=== PATIENT | male | born 1945 | race Caucasian/White ===

== ENCOUNTER → 2018-04-13 | Outpatient (CLI) | payer MEDICARE ==
[2018-04-13 10:49] LABS: HGB 14.1 gm/dL (13.0-17.5); MCH 30.9 pg (25.0-35.0); MCHC 32.8 g/dL (31.0-37.0); MCV 94.2 fL (80.0-100.0); Mean Platelet Volume 6.8; Platelet Count 278 k/uL (150-450); RBC 4.57 m/uL (4.30-5.90); RDW 13.7 % (11.5-15.5); WBC 7.1 k/uL (3.8-10.6)
[2018-04-13 11:08] LABS: Anion Gap 6 mmol/L; Blood Urea Nitrogen 14 mg/dL (9-20); Carbon Dioxide 30 mmol/L (22-30); Chloride 105 mmol/L (98-107); Glucose 127 mg/dL (74-99); Potassium 4.6 mmol/L (3.5-5.1); Sodium 141 mmol/L (137-145)
== END | disposition home or self-care (01) ==
LOC: LABPAT 09:48
PROVIDERS: ATTEND Internal Medicine Clinical Cardiac Electrophysiology
DX: Z01.812 Encounter for preprocedural laboratory examination (principal); I48.1 Persistent atrial fibrillation
CPT/HCPCS: 36415; 80051; 82565; 82947; 84520; 85027

== ENCOUNTER 2018-04-18 11:38 | Day surgery (SDC) | payer MEDICARE ==
[2018-04-14 08:59] VITALS: BMI 25.8
[~2018-04-18 11:38] MED LIST: DEXAMETHASONE SOD PHOSPHATE 10 MG/ML 1 ML VIAL IV ONE; LACTATED RINGERS 1,000 ML IV SCH; LIDOCAINE 1% 20 ML VIAL (10MG/ML) FOR IV START INTRADERMA PRN; MIDAZOLAM 2 MG/2 ML VIAL IV PRN; ONDANSETRON 4 MG/2 ML VIAL IVP ONE; SODIUM CHLORIDE 0.9% 1,000 ML IV SCH; ceFAZolin 1,000 MG in SODIUM CHLORIDE 0.9% IRRIGATIO 250 ML IRRIGATION ONE; ceFAZolin IN SWFI 2 GM/20 ML SYRINGE IVP ONE; fentaNYL (PF) 50 MCG/ML 2 ML AMP IV PRN
[2018-04-18] MEDS ORDERED: SODIUM CHLORIDE 0.9% 500 ML 500 ML IV ONE (13:00)
[2018-04-18] MEDS ORDERED: PROPOFOL 10 MG/ML 20 ML VIAL IV ONE (13:13)
[2018-04-18] MEDS ORDERED: fentaNYL (PF) 50 MCG/ML 2 ML AMP ONE (13:13)
[2018-04-18] MEDS ORDERED: MIDAZOLAM 2 MG/2 ML VIAL ONE (13:13)
[2018-04-18] MEDS ORDERED: HYDROcodone/APAP 5-325MG 1 EACH TAB PO PRN (13:25)
[2018-04-18] MEDS ORDERED: ACETAMINOPHEN TAB 325 MG TAB PO PRN (13:25)
[2018-04-18] MEDS ORDERED: ACETAMINOPHEN IV (For NPO) 1,000 MG in EMPTY BAG 1 BAG IVPB ONE (13:25)
[2018-04-18] MEDS ORDERED: IOPAMIDOL-370 50ML BTL INJ ONE (13:33)
[2018-04-18] MEDS ORDERED: LIDOCAINE 1% INJ 10MG/ML (20 ML MDV) SQ ONE (13:52)
[2018-04-18] MEDS: amLODIPine 5 MG TAB PO SCH (15:50)
[2018-04-18] MEDS: ceFAZolin IN SWFI 2 GM/20 ML SYRINGE IVP SCH (20:49)
[2018-04-18] MEDS: APIXABAN 5 MG TAB PO SCH (20:49)
--- NOTE | 2018-04-18 21:15 | PCN ---
PROCEDURE NOTE Mr. Greco is a 73-year-old male patient with longstanding atrial fibrillation, persistent with severe bradycardia, symptomatic. He was brought in for permanent pacemaker implantation with physiologic septal pacing. DESCRIPTION OF PROCEDURE: Patient is brought to the EP lab in a fasting state. Written informed consent was obtained prior to the procedure. The left shoulder area was prepped and draped as per protocol. 1% lidocaine was used for local anesthesia. A 4 cm incision made parallel to the deltopectoral groove, about 1.5 cm medial to it. The incision was carried down to the level of the pectoralis muscle. A subfascial pocket was made. Hemostasis was assured. The left axillary vein was accessed at 2 separate points under fluoroscopy and via appropriately-sized introducer sheaths, 2 leads were positioned the right heart. The RV lead was 58 cm, model a Medtronic model #4074 serial #[id number]. This was positioned in the RV apex. This was a passive lead. R-waves 10.3 mV. Pacing threshold 0.3 V at 0.5 milliseconds, pacing impedance of 961 ohms. 10 V test negative. His bundle lead was screwed in the His bundle area and nonselective pacing was noted from the highest output down to 1.4 V at 1 millisecond, where there was non capture. Pacing impedance of 608 ohms, R-waves were 0.8 mV. The HIS to QRS at that site was about 58 milliseconds and the stim QRS at that site was about 55 milliseconds. Nonselective pacing was noted. The leads were secured to the underlying pectoralis fascia after the sheaths were removed. The leads were connected to the generator. The atrial port was capped. The generator was a Medtronic Johnna CRTP model number W1DR02 serial number [id number]. The leads and generator were then placed in subfascial pocket. The wound was closed in 3 layers and dressed per protocol. RESULT: Successful pacemaker implantation with the His bundle lead/physiologic septal pacing performed. Device was programmed to VVIR mode at 50-130 ppm with backup RV pacing. Successful pacemaker implantation for management of long-standing atrial fibrillation with severe bradycardia. PLAN: antihypertensive therapy and antibiotics. MMODL / IJN: [id number] /
[2018-04-19] MEDS: ceFAZolin IN SWFI 2 GM/20 ML SYRINGE IVP SCH ×4 (03:00→13:17)
[2018-04-19 07:40] VITALS: RESP 18
[2018-04-19] MEDS: amLODIPine 5 MG TAB PO SCH (07:43)
[2018-04-19] MEDS: APIXABAN 5 MG TAB PO SCH (07:43)
[2018-04-19] MEDS ORDERED: ASPIRIN 81 MG PO SCH (08:00)
--- NOTE | 2018-04-19 09:14 | XR ---
EXAMINATION TYPE: XR chest 2V DATE OF EXAM: 04/19/2018 COMPARISON: Prior chest x-ray 05/11/2016 HISTORY: Lead placement check TECHNIQUE: Frontal and lateral views of the chest are obtained. FINDINGS: Interval placement of a generator in the left pectoral region, there are is a lead in the right ventricle and region of right atrium. No evident pneumothorax or pleural effusion. Prominent yesy ng volumes are again noted. Cardiac mediastinal silhouette, pulmonary vascularity and dennis are stable . IMPRESSION: No evident complication status post pacemaker placement.
[2018-04-19 11:28] VITALS: BP 156/79; PULSE 52; TEMP 98.4
--- NOTE | 2018-04-19 13:52 | P.DS ---
Providers Attending physician: Cole Kelley Consults: 04/18/18 15:27 Consult Physician Routine Consulting Provider: Jose Carcamo Consult Reason/Comments: h/o tia, htn Do you want consulting provider notified?: Already Contacted Primary care physician: [facility] Course: This is a pleasant 73-year-old male who came in electively for permanent pacemaker implantation secondary to longstanding atrial fibrillation with severe symptomatic bradycardia. Medtronic device was placed to the left anterior chest without incident. Device was programmed to VVIR mode at 50-130 ppm with backup RV pacing. Medtronic rep was in this morning and his device was interrogated and is functioning normally. Chest xray obtained post procedure indicates no evident complication s/p pacemaker placement. Blood pressure 156/ 79 heart rate 52 afebrile maintaining oxygen saturation on room air. Amlodipine 5 mg daily was added to his daily regimen. Discharge medications include Eliquis 5 mg twice a day, aspirin 81 mg every other day and amlodipine 5 mg daily. He denies chest pain, shortness of breath, dizziness or palpitations. He also denies pain to the site of his pacemaker, left shoulder, left arm or neck. GENERAL: Well-appearing, well-nourished and in no acute distress. Hemodynamically stable. NECK: Supple without JVD or thyromegaly. LUNGS: Breath sounds clear to auscultation bilaterally. Respiration equal and unlabored. No wheezes, rales or rhonchi. HEART: Irregular rate and rhythm without murmurs, rubs or gallops. S1 and S2 heard. EXTREMITIES: Normal range of motion, no edema. No clubbing or cyanosis. Peripheral pulses intact. Dressing to the left anterior chest wall clean dry and intact with no evidence of bleeding, swelling or redness. Sling is in place. ASSESSMENT Status post permanent pacemaker implantation Persistent atrial fibrillation on technician terminal and repeater anticoagulation Symptomatic bradycardia Hypertension PLAN Stable for discharge home. Instructions provided for post-pacemaker care. Advised him to use his sling when sleeping and avoid lifting his left arm above the level of his shoulder. Follow up in the device clinic 04/25/[address] Kelley thereafter 07/20. Nurse Practitioner note has been reviewed, I agree with a documented findings and plan of care. Patient was seen and examined. Patient Condition at Discharge: Stable Plan - Discharge Summary Discharge Rx Participant: No New Discharge Prescriptions: New amLODIPine [Norvasc] 5 mg PO DAILY #90 tab Continue Aspirin 81 mg PO Q2D Apixaban [Eliquis] 5 mg PO BID Discharge Medication List Aspirin 81 mg PO Q2D 12/04/14 [History] Apixaban [Eliquis] 5 mg PO BID 04/14/18 [History] amLODIPine [Norvasc] 5 mg PO DAILY #90 tab 04/18/18 [Rx] Follow up Appointment(s)/Referral(s): Cole Kelley MD [STAFF PHYSICIAN] - 1 Week (Device clinic 04/25/2018 8:30am Dr. Saleem 07/20/2018 3:30pm) Robert Wheat MD [Primary Care Provider] - 04/26/18 8:30 am Patient Instructions/Handouts: Pacemaker (DC) Activity/Diet/Wound Care/Special Instructions: PATIENT EDUCATION MATERIAL Instructions following a heart rhythm device implant. 1. Keep dressing DRY for 5 DAYS. You may cover the area with Saran or Cling Wrap, prior to a shower. 2. The dressing will be removed in the Device Clinic at [facility]. Absorbable sutures were used to close the wound. 3. Avoid raising the left arm above the shoulder level. 4 week restriction 4. Avoid arm movements, like backscratching, rubbing the head, or pulling on a cord. 4 weeks restriction 5. Gentle range of motion movements of the shoulder, closest to the incision should be performed to avoid a frozen shoulder. (Pendulum exercises of the shoulder) 6. The opposite arm may be used freely. 7. Avoid driving for 7 days. 8. Avoid activities such as golfing, swimming, weed whacking, lifting more than 10 pounds weight, bowling, gymnastics and weight training/lifting. (6 weeks restriction) 9. Activities such as wood chopping with an axe, pull-ups in the gymnasium, power lifting, arc-welding, being close to home induction cooktops will always be a problem. 10. Arm sling is only a reminder not to raise the arm above the head. You do not need to keep the arm completely immobilized. Your free to move the arm and use it and for normal activities. In case of any problems, please call [facility], [place], @ [phone], Attention: Device Clinic Device clinic follow-up in 5 days Follow-up with primary greenhouse superintendent Dr. Saleem in 2-3 months New medication amlodipine 5 g by mouth daily Continue aspirin continue ELIQUIS Follow-up with PCP in 3-4 weeks for hypertension management Discharge Disposition: HOME SELF-CARE
--- NOTE | 2018-04-20 10:48 | P.CONS ---
History of Present Illness - Reason for Consult Consult date: 04/19/18 Hypertension - History of Present Illness This is a 73-year-old male patient of Dr. mederos with past history of chronic atrial fibrillation, mild CVA, borderline hypertension, kidney stones, skin cancer in his chest. Patient was brought in the hospital by Dr. Phoenix for symptomatic bradycardia and status post pacemaker placement. Patient has had no postprocedure complications. He is to complete his last dose of antibiotics and be discharged home this afternoon. Patient did have elevated blood pressure which has been monitored and has been borderline as stated, patient was started on amlodipine by Dr. Kelley. He is also to continue AB aspirin and eliquis. Patient currently denies any chest pain, shortness of breath, lightheadedness or dizziness. Review of Systems All systems: negative Constitutional: Denies chills, Denies fatigue, Denies fever, Denies lethargy, Denies malaise, Denies poor appetite, Denies weakness, Denies weight loss Eyes: denies blurred vision, denies pain Ears, nose, mouth and throat: Denies dysphagia, Denies headache, Denies sore throat, Denies vertigo Cardiovascular: Denies chest pain, Denies decreased exercise tolerance, Denies dyspnea on exertion, Denies edema, Denies leg edema, Denies palpitations, Denies shortness of breath, Denies syncope Respiratory: Denies cough, Denies cough with sputum, Denies dyspnea, Denies excessive sputum, Denies hemoptysis, Denies home oxygen, Denies wheezing Gastrointestinal: Denies abdominal pain, Denies constipation, Denies diarrhea, Denies loss of appetite, Denies melena, Denies nausea, Denies vomiting Genitourinary: Denies dysuria, Denies urinary frequency, Denies urinary hesitancy, Denies urinary retention Musculoskeletal: Denies frequent falls, Denies gait dysfunction, Denies muscle cramps, Denies muscle weakness, Denies myalgias Integumentary: Denies color changes, Denies darkening of skin, Denies pruritus, Denies rash, Denies wounds Neurological: Denies change in mentation, Denies change in speech, Denies confusion, Denies convulsions, Denies gait dysfunction, Denies head injury, Denies headaches, Denies numbness, Denies seizures, Denies weakness Psychiatric: Denies anxiety, Denies depression Endocrine: Denies fatigue, Denies weight change Past Medical History Past Medical History: Atrial Fibrillation, Cancer, CVA/TIA, Hypertension Additional Past Medical History / Comment(s): Kidney Stones. Skin CA to chest. CMP. 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 BORDERLINE HTN, NO RX. History of Any Multi-Drug Resistant Organisms: None Reported Past Surgical History: Appendectomy, Cholecystectomy, Orthopedic Surgery Additional Past Surgical History / Comment(s): Jonathon Knee Arthroscopy. COLONOSCOPY. Pacemaker April 2018 Past Anesthesia/Blood Transfusion Reactions: Motion Sickness Additional Past Anesthesia/Blood Transfusion Reaction / Comm: Brother gets combative with anesthesia. Past Psychological History: No Psychological Hx Reported Smoking Status: Former smoker Past Alcohol Use History: Occasional Additional Past Alcohol Use History / Comment(s): SMOKED 15 YEARS, UP TO 1 PPD, QUIT 1990. Past Drug Use History: Marijuana Additional Drug Use History / Comment(s): Smokes Marijuana DAILY. Patient lives at home with his . - Past Family History Brother(s) Family Medical History: Deep Vein Thrombosis (DVT) Additional Family Medical History / Comment(s): 1 brother living with obesity. He has had 2 brothers. One at age 57 from early dementia. Second brother at age 68 from a massive myocardial infarction but had history of previous CABG, lung transplant. Father Family Medical History: Myocardial Infarction ([place]) Additional Family Medical History / Comment(s): Father at 88 from old age. Mother Family Medical History: Cancer Additional Family Medical History / Comment(s): Mother at age 66 from lung ca with metastatic disease to the brain. Medications and Allergies Home Medications Medication Instructions Recorded Confirmed Type Aspirin 81 mg PO Q2D 12/04/14 04/18/18 History Apixaban [Eliquis] 5 mg PO BID 04/14/18 04/18/18 History amLODIPine [Norvasc] 5 mg PO DAILY #90 tab 04/18/18 Rx Allergies Allergy/AdvReac Type Severity Reaction Status Date / Time No Known Allergies Allergy Verified 04/18/18 12:32 Physical Exam Vitals: Vital Signs Temp Pulse Resp BP Pulse Ox 04/19/18 12:00 52 L 18 04/19/18 11:27 98.4 F 52 L 18 156/79 99 04/19/18 08:00 54 L 18 04/19/18 07:05 98.5 F 54 L 18 172/81 99 04/19/18 03:29 98.0 F 58 L 16 164/71 98 04/19/18 01:10 16 04/18/18 23:53 97.9 F 57 L 16 147/74 98 04/18/18 20:00 50 L 04/18/18 18:00 54 L 18 156/73 97 04/18/18 17:10 57 L 16 155/79 98 04/18/18 16:10 57 L 16 170/87 97 04/18/18 16:00 54 L 18 04/18/18 15:45 97.7 F 54 L 18 179/88 97 Intake and Output 04/19/18 04/19/18 04/19/18 06:59 14:59 22:59 Intake Total 676 Balance 676 Intake: Oral 476 Other 200 Other: Voiding Method Toilet Gen: This is a 73-year-old male. He is sitting up in bed and appears to be comfortable and in no acute distress. HEENT: Head is atraumatic, normocephalic. Pupils equal, round. Sclerae is anicteric. NECK: Supple. No JVD. No lymphadenopathy. No thyromegaly. LUNGS: Clear to auscultation. No wheezes or rhonchi. No intercostal retractions. HEART: Regular rate and rhythm. No murmur. Small dressing in place to the left anterior chest wall. Arm sling in place to the left arm. ABDOMEN: Soft. Bowel sounds are present. No masses. No tenderness. EXTREMITIES: No pedal edema. No calf tenderness. Dorsalis pedis palpable bilaterally. NEUROLOGICAL: Patient is awake, alert and oriented x3. Cranial nerves 2 through 12 are grossly intact. Assessment and Plan Plan: 1. Symptomatic bradycardia status post pacemaker. 2. Hypertension. Amlodipine. 3. Chronic atrial fibrillation. Continue eliquis. 4. Remote history of tobacco use. 5. Active daily marijuana use. Discharge plan: home Impression and plan of care have been directed as dictated by the signing physician. Dee Hatfield nurse practitioner acting as scribe for signing physician.
== END 2018-04-19 13:35 | disposition home or self-care (01) ==
LOC: CATHEP 11:38 → 1SOBS 15:00 → CATHEP 04-19 13:35
PROVIDERS: ATTEND Internal Medicine Clinical Cardiac Electrophysiology
DX: R00.1 Bradycardia, unspecified (principal); I48.1 Persistent atrial fibrillation; Z79.01 Long term (current) use of anticoagulants; Z87.891 Personal history of nicotine dependence; I10 Essential (primary) hypertension; Z87.442 Personal history of urinary calculi; Z86.73 Personal history of transient ischemic attack (TIA), and cerebral infarction without residual deficits; Z85.828 Personal history of other malignant neoplasm of skin; Z79.82 Long term (current) use of aspirin
CPT/HCPCS: 33208; 71046; C1769 ×2; C1892; C1898; C2621; J2250; J0690 ×3; J2001; J3010; J0131; J2704; Q9967; 33225

== ENCOUNTER → 2018-12-20 | Outpatient (CLI) | payer MEDICARE ==
[2018-12-20 09:48] LABS: HGB 11.4 gm/dL (13.0-17.5); MCHC 33.5 g/dL (31.0-37.0); MCV 89.4 fL (80.0-100.0); Mean Platelet Volume 7.1; Platelet Count 319 k/uL (150-450); RDW 13.5 % (11.5-15.5); WBC 7.1 k/uL (3.8-10.6)
[2018-12-20 09:52] LABS: African American GFR (CKD) >90 (>60 ml/min/1.73 sqM); Anion Gap 7 mmol/L; Blood Urea Nitrogen 14 mg/dL (9-20); Carbon Dioxide 30 mmol/L (22-30); Chloride 104 mmol/L (98-107); Potassium 4.7 mmol/L (3.5-5.1); Sodium 141 mmol/L (137-145)
== END | disposition home or self-care (01) ==
LOC: LABPAT 08:36
PROVIDERS: ATTEND Internal Medicine Cardiovascular Disease
DX: Z01.812 Encounter for preprocedural laboratory examination (principal); R94.39 Abnormal result of other cardiovascular function study
CPT/HCPCS: 36415; 80051; 82565; 84520; 85027

== ENCOUNTER 2019-01-06 07:30 | Day surgery (SDC) | payer MEDICARE ==
[2019-01-05 09:41] VITALS: BMI 26.6
[~2019-01-06 07:30] MED LIST changes: +ALPRAZolam 0.25 MG TAB PO PRN; +ASPIRIN 325 MG TAB PO STA; -DEXAMETHASONE SOD PHOSPHATE 10 MG/ML 1 ML VIAL IV ONE; -LACTATED RINGERS 1,000 ML IV SCH; -LIDOCAINE 1% 20 ML VIAL (10MG/ML) FOR IV START INTRADERMA PRN; -MIDAZOLAM 2 MG/2 ML VIAL IV PRN; +NITROGLYCERIN SL TABS 0.4 MG TAB SUBLINGUAL PRN; -ONDANSETRON 4 MG/2 ML VIAL IVP ONE; -SODIUM CHLORIDE 0.9% 1,000 ML IV SCH; +SODIUM CHLORIDE 0.9% 1,000 ML in EMPTY BAG 1 BAG IV ONE; -ceFAZolin 1,000 MG in SODIUM CHLORIDE 0.9% IRRIGATIO 250 ML IRRIGATION ONE; -ceFAZolin IN SWFI 2 GM/20 ML SYRINGE IVP ONE; -fentaNYL (PF) 50 MCG/ML 2 ML AMP IV PRN
[2019-01-06] MEDS ORDERED: MIDAZOLAM (PF) 2 MG/2 ML VIAL IV ONE (08:56)
[2019-01-06] MEDS ORDERED: fentaNYL (PF) 50 MCG/ML 2 ML AMP IV ONE (08:56)
[2019-01-06] MEDS ORDERED: LIDOCAINE 1% INJ 10MG/ML (20 ML MDV) SQ ONE (08:57)
[2019-01-06] MEDS ORDERED: IOPAMIDOL-370 125ML BTL INJ ONE (09:09)
[2019-01-06] MEDS ORDERED: RX INFO: IV CONTRAST WAS GIVEN 1 EACH MISC MISCELLANE PRN (09:31)
[2019-01-06] MEDS ORDERED: HYDROmorphone 0.5 MG/0.5 ML SYRINGE IVP PRN (09:37)
[2019-01-06] MEDS ORDERED: SODIUM CHLORIDE 0.9% 1,000 ML IV SCH (09:45)
--- NOTE | 2019-01-06 09:49 | CC ---
CARDIAC CATHETERIZATION REPORT INDICATION: Exertional fatigue with abnormal stress test showing ischemia in LAD distribution. PROCEDURE NOTE: After obtaining informed consent, left heart catheterization and coronary angiogram were performed via the right femoral artery using standard Lokesh catheters. Patient tolerated the procedure well without any obvious immediate complications. A femoral angiogram was performed and Angio-Seal was deployed for hemostasis. Patient received moderate conscious sedation. Total sedation time was 15 minutes. FINDINGS: 1. HEMODYNAMICS: Left ventricular end-diastolic pressure is 10 mm. There is no significant gradient across the aortic valve. 2. LEFT VENTRICULOGRAM: Left ventriculogram is not performed. 3. ANGIOGRAPHIC DATA: LEFT MAIN CORONARY ARTERY: Left main coronary artery appears calcified. There is distal left main stenosis of at least 60% noted. It divides into left anterior descending coronary artery and circumflex coronary artery. Ostial LAD shows a 90% to 95% stenosis. LAD gives off a large caliber diagonal branch and ostial portion of the diagonal branch shows a 90% stenosis. Proximal part of the circumflex coronary artery shows a 70% to 80% stenosis. Right coronary artery is a large dominant vessel, shows a 50% to 60% stenosis in its midportion and the ostial portion of the PLV shows a 70% stenosis. CONCLUSION: Severe three-vessel coronary artery disease with distal left main stenosis. PLAN: I will admit the patient to hospital. Discharge him home tomorrow. Will consult Cardiothoracic Surgeon to evaluate the patient today for bypass surgery. MMMAXWELL / GIGI: [id number] /
--- NOTE | 2019-01-06 09:54 | LTR ---
DATE OF SERVICE: 01/06/2019 RE: Macario Greco Dear Dr. Wheat; I performed cardiac catheterization on Macario Greco. This is a 73-year-old gentleman with history of chronic atrial fibrillation, permanent pacemaker, TIA who recently presented to Dr. Kelley with symptoms of exertional fatigue and had an abnormal stress test. His cardiac catheterization revealed severe three-vessel coronary artery disease and we are consulting Dr. Albrecht, the cardiothoracic surgeon to evaluate the patient. Sincerely, MD NELSON Jaramillo / [place]AN: [id number] /
[2019-01-06 09:55] VITALS: RESP 16; TEMP 98.7
[2019-01-06] MEDS ORDERED: ISOSORBIDE MONONITRATE ER 30 MG TAB.ER.24H PO STA (12:22)
--- NOTE | 2019-01-06 12:29 | P.GSCN ---
History of Present Illness Consult date: 01/06/19 Reason for Consult: Triple-vessel coronary artery disease with left main stenosis 50-60%, surgical revascularization recommendations Requesting physician: Eleno Lang History of present illness: This is a 73-year-old active gentleman he follows on an outpatient basis with Dr. Wheat as well as Dr. Kelley from [facility]. He has a previous medical history of slow, persistent atrial fibrillation status post Medtronic permanent pacemaker placement in April 2018 on chronic Eliquis for anticoagulation, hypertension, TIA, marijuana use, previous tobacco dependence, and significant family history of premature coronary artery disease. He reports symptoms of increased tiredness and fatigue lately, but denies any other symptoms including chest pain, shortness of breath, nausea, dizziness, or lower extremity edema. He was recommended to undergo stress test which was abnormal and demonstrated possible anterior wall ischemia. In addition a left carotid bruit was heard and carotid Dopplers were completed and cardiology [facility], however no significant carotid stenosis was found. Due to his abnormal stress test the patient was recommended to undergo heart catheterization which was completed today and which demonstrated a calcified left main coronary artery with distal stenosis 60%, ostial LAD stenosis 90-95% with 90% ostial stenosis in a diagonal branch, proximal circumflex stenosis 70-80%, mid right coronary artery stenosis 50-60% with ostial PLV stenosis 70%. Due to these findings Dr. Albrecht from cardiothoracic surgery was consulted regarding surgical revascularization recommendations. Review of Systems Review of systems was completed and was negative except as noted. - Constitutional Constitutional Comment(s): Progressive tiredness Reports fatigue Past Medical History Past Medical History: Atrial Fibrillation, Coronary Artery Disease (CAD), Cancer, CVA/TIA, Hypertension Additional Past Medical History / Comment(s): Kidney Stones. Skin CA to chest. CMP. 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 BORDERLINE HTN, NO RX. History of Any Multi-Drug Resistant Organisms: None Reported Past Surgical History: Appendectomy, Cholecystectomy, Heart Catheterization, Orthopedic Surgery, Pacemaker Additional Past Surgical History / Comment(s): Jonathon Knee Arthroscopy. COLONOSCOPY. Medtronic Pacemaker April 2018. Heart Cath 01/06- triple vessel disease Past Anesthesia/Blood Transfusion Reactions: Motion Sickness Additional Past Anesthesia/Blood Transfusion Reaction / Comm: Brother gets combative with anesthesia. Type of Cardiac Device: Permanent Pacemaker Device Placement Date:: 04/2018 Past Psychological History: No Psychological Hx Reported Smoking Status: Former smoker Past Alcohol Use History: Occasional Additional Past Alcohol Use History / Comment(s): SMOKED 15 YEARS, UP TO 1 PPD, QUIT 1990. Past Drug Use History: Marijuana Additional Drug Use History / Comment(s): Smokes Marijuana DAILY. - Past Family History Brother(s) Family Medical History: Deep Vein Thrombosis (DVT), Myocardial Infarction ([place]) Sister(s) Family Medical History: Cancer Father Family Medical History: Myocardial Infarction ([place]) Mother Family Medical History: Cancer Medications and Allergies Home Medications Medication Instructions Recorded Confirmed Type Aspirin 81 mg PO Q2D 12/04/14 01/06/19 History Apixaban [Eliquis] 5 mg PO BID 04/14/18 01/06/19 History amLODIPine [Norvasc] 5 mg PO DAILY #90 tab 04/18/18 01/05/19 Rx Atorvastatin [Lipitor] 40 mg PO HS 12/28/18 01/06/19 History Metoprolol Succinate [Toprol XL] 25 mg PO DAILY 12/28/18 01/05/19 History Isosorbide Mononitrate ER [Imdur] 30 mg PO DAILY #30 tab 01/06/19 Rx Nitroglycerin Sl Tabs [Nitrostat] 0.4 mg SUBLINGUAL Q5M PRN #25 tab 01/06/19 Rx Allergies Allergy/AdvReac Type Severity Reaction Status Date / Time No Known Allergies Allergy Verified 01/05/19 09:38 Surgical - Exam Vital Signs Temp Pulse Resp BP Pulse Ox 98.7 F 51 L 16 153/73 97 01/06/19 09:46 01/06/19 09:46 01/06/19 09:46 01/06/19 09:46 01/06/19 09:46 - General well developed, well nourished, no distress, no pain - Eyes PERRL, normal ocular movement - ENT no hearing loss, poor fdc - Neck no masses, trachea midline carotid bruit: left - Respiratory Lungs sounds diminished bilaterally. Respirations even, nonlabored. Currently on room air with oxygen saturation 97%. No chest wall deformities. No clubbing or cyanosis. - Cardiovascular S1, S2 present. Slow, irregular rate and rhythm, slow atrial fibrillation on telemetry. Palpable peripheral pulses bilaterally. No edema present. No calf pain or tenderness noted. Right femoral artery heart catheterization site soft, nontender, no drainage. - Abdomen Abdomen: soft, non tender, bowel sounds - Genitourinary Deferred - Rectum Deferred - Integumentary no rash, no growths - Neurologic normal coordination - Musculoskeletal normal posture - Psychiatric oriented to time, oriented to person, oriented to place, speech is normal, memory intact Results - Imaging EKG: image reviewed Additional studies: Heart catheterization films reviewed Assessment and Plan Assessment: 1. Triple-vessel coronary artery disease with 60% left main stenosis 2. Slow, persistent atrial fibrillation, status post Medtronic permanent pacemaker placement on chronic Eliquis for anticoagulation 3. Hypertension 4. TIA 5. Daily marijuana use 6. Previous tobacco dependence 7. Significant family history of premature coronary artery disease Plan: The patient was seen and examined at the bedside. Chart/diagnostics were reviewed including heart catheterization films. The usual perioperative course of coronary artery bypass graft surgery was discussed in detail with the patient and his family, risks and benefits were reviewed, all questions were answered. The patient adamantly states he does not want bypass surgery even if it means hastening of his . Extensive detail of the severity of the patient's coronary stenosis was discussed, patient continued to state he does not want surgery. We would recommend continuing maximizing medical therapy with aspirin, statin, beta davida therapy. The patient's wishes were discussed with Dr. Lang. Our contact information was given to the patient should he change his mind or have any further questions. Thank you Dr. Lang for this consult. Please call us with any further qu estions. Time with Patient: Greater than 30
--- NOTE | 2019-01-06 12:45 | PN ---
PROGRESS NOTE Mr. Greco is a 73-year-old gentleman who was brought in electively for a cardiac catheterization. He was found to have severe triple-vessel coronary artery disease with distal left main stenosis. We consulted the cardiothoracic surgeon and we are going to keep him in the hospital overnight. However, patient has opted not to undergo surgery and will be discharged home today. I will add Imdur and sublingual nitroglycerin on a p.r.n. basis. MMMAXWELL / [place]AN: [id number] /
[2019-01-06 13:04] VITALS: PULSE 52
[2019-01-06 15:01] VITALS: BP 162/72
[2019-01-06] MEDS ORDERED: APIXABAN 5 MG TAB PO SCH (21:00)
[2019-01-06] MEDS ORDERED: ATORVASTATIN 40 MG TAB PO SCH (21:00)
[2019-01-07] MEDS ORDERED: METOPROLOL SUCCINATE (ER) 25 MG TAB.ER.24H PO SCH (09:00)
[2019-01-07] MEDS ORDERED: amLODIPine 5 MG TAB PO SCH (09:00)
[2019-01-08] MEDS ORDERED: ASPIRIN 81 MG PO SCH (09:00)
== END 2019-01-06 15:36 | disposition home or self-care (01) ==
LOC: CATHCVL 07:30 → 3SCARD 09:10 → CATHCVL 15:36
PROVIDERS: ATTEND Internal Medicine Cardiovascular Disease
DX: I25.10 Atherosclerotic heart disease of native coronary artery without angina pectoris (principal); I25.84 Coronary atherosclerosis due to calcified coronary lesion; Z87.891 Personal history of nicotine dependence; I48.1 Persistent atrial fibrillation; Z86.73 Personal history of transient ischemic attack (TIA), and cerebral infarction without residual deficits; Z95.0 Presence of cardiac pacemaker; R09.89 Other specified symptoms and signs involving the circulatory and respiratory systems; I10 Essential (primary) hypertension; Z82.49 Family history of ischemic heart disease and other diseases of the circulatory system; Z87.442 Personal history of urinary calculi; Z85.828 Personal history of other malignant neoplasm of skin; Z90.49 Acquired absence of other specified parts of digestive tract; Z79.82 Long term (current) use of aspirin; Z79.899 Other long term (current) drug therapy; Z79.01 Long term (current) use of anticoagulants
CPT/HCPCS: 93458; C1760; C1894; C1769; J2001; J3010; Q9967; J2250

== ENCOUNTER → 2019-04-12 | Outpatient (CLI) | payer MEDICARE ==
[2019-04-12 21:10] LABS: Chol/HDL Ratio 1.81; Cholesterol 121 mg/dL (0-200); Triglycerides <50.0 mg/dL (0.0-149.0)
== END | disposition home or self-care (01) ==
LOC: LABWHC1 12:55
PROVIDERS: ATTEND Internal Medicine Clinical Cardiac Electrophysiology
DX: I25.10 Atherosclerotic heart disease of native coronary artery without angina pectoris (principal); E78.5 Hyperlipidemia, unspecified
CPT/HCPCS: 36415; 80061

== ENCOUNTER → 2019-04-26 | Outpatient (CLI) | payer MEDICARE ==
--- NOTE | 2019-04-27 08:00 | ECHOF ---
Referral Reason:I25.84 CAD MEASUREMENTS -------- HEIGHT: 177.8 cm WEIGHT: 81.6 kg BP: RVIDd: 3.7 cm (< 3.3) IVSd: 1.6 cm (0.6 - 1.1) LVIDd: 4.7 cm (3.9 - 5.3) LVPWd: 1.3 cm (0.6 - 1.1) IVSs: 1.8 cm LVIDs: 3.7 cm LVPWs: 2.0 cm LAESV Index (A-L): 58.72 ml/m Ao Diam: 3.4 cm (2.0 - 3.7) AV Cusp: 1.5 cm (1.5 - 2.6) LA Diam: 4.8 cm (2.7 - 3.8) MV EXCURSION: 17.586 mm (> 18.000) MV EF SLOPE: 113 mm/s (70 - 150) EPSS: 1.1 cm RAP: 5.00 mmHg RVSP: 34.24 mmHg FINDINGS -------- Atrial fibrillation. This was a technically adequate study. The left ventricular size is normal. There is moderate concentric left ventricular hypertrophy. O verall left ventricular systolic function is low-normal with, an EF between 50 - 55 %. Left ventric ular fillimg pressure cannot be estimated due to Atrial fibrillation. Septal wall motion is delayed , and consistent with ventricular pacing. The right ventricle is mildly enlarged. LA is severely dilated >40 ml/m2 The right atrium is moderately enlarged. Electronic pacemaker lead seen in the right atrial cavity. Interatrial and interventricular septum intact. The aortic valve is trileaflet and appears structurally normal. There is moderate aortic valve scle rosis. There is no evidence of aortic regurgitation. There is no evidence of aortic stenosis. Mild mitral annular calcification present. Frdj-yo-pzlzdwes mitral regurgitation is present. Mxav-dt-bvwvwqpj tricuspid regurgitation present. There is borderline pulmonary artery hypertension . The right ventricular systolic pressure, as measured by Doppler, is 34.24mmHg. There is no pulmonic regurgitation present. The aortic root size is normal. IVC Not well visulized. There is no pericardial effusion. CONCLUSIONS -------- 1. Atrial fibrillation. 2. This was a technically adequate study. 3. The left ventricular size is normal. 4. There is moderate concentric left ventricular hypertrophy. 5. Overall left ventricular systolic function is low-normal with, an EF between 50 - 55 %. 6. Left ventricular fillimg pressure cannot be estimated due to Atrial fibrillation. 7. Septal wall motion is delayed, and consistent with ventricular pacing. 8. The right ventricle is mildly enlarged. 9. LA is severely dilated >40 ml/m2 10. The right atrium is moderately enlarged. 11. Electronic pacemaker lead seen in the right atrial cavity. 12. Interatrial and interventricular septum intact. 13. The aortic valve is trileaflet and appears structurally normal. 14. There is moderate aortic valve sclerosis. 15. There is no evidence of aortic regurgitation. 16. There is no evidence of aortic stenosis. 17. Mild mitral annular calcification present. 18. Xpmq-if-gbfbvaps mitral regurgitation is present. 19. Glhr-eu-jwsoqgux tricuspid regurgitation present. 20. There is borderline pulmonary artery hypertension. 21. The right ventricular systolic pressure, as measured by Doppler, is 34.24mmHg. 22. There is no pulmonic regurgitation present. 23. The aortic root size is normal. 24. IVC Not well visulized. 25. There is no pericardial effusion. SPECIAL CLIENT BUS DRIVER: Amanda Hyde RDCS
--- NOTE | 2019-05-03 10:57 | P.ARTDOP ---
Arterial Doppler LOWER EXTREMITY ARTERIAL DOPPLER: DATE OF SERVICE: 04/26/2019 Reason for study: Preop CABG. Doppler waveforms: Multiphasic bilaterally throughout. Pulse volume recording: []. Pressure gradients: None. Ankle-brachial indices: Greater than 1 bilaterally. Toe pressures: [] on the right, [] on the left Impression: [].
--- NOTE | 2019-05-03 10:59 | P.VSCSTY ---
Greater Saphenous Vein Mapping This is bilateral lower extremity greater saphenous vein mapping. Date of service: 04/26/2019 Vein quality and ultrasound appearance: No intraluminal thrombus or wall changes are seen. Vein size groin right : 5 x 3.8 groin left: 4.3 x 5.1 High thigh right: 4.1 x 3.6 high thigh left: 3.8 x 4.4 Mid thigh right: 3.1 x 2.7 mid thigh left: 2.9 x 2.7 Above-knee right: 1.7 x 1.9 above-knee left: 2.1 x 2.0 Below knee right: 2.3 x 1.6 below-knee left: 2.0 x 1.8 Mid calf right: 2.4 x 2.5 mid calf left: 2.7 x 2.9 Ankle right: 2.6 x 2.8 ankle left: 2.6 x 2.2 Impression: Usable bilateral greater saphenous vein. Upper thighs are better bilaterally. May be some areas around the knee that are too small..
== END | disposition home or self-care (01) ==
LOC: RADECHMAIN 12:44
PROVIDERS: ATTEND Surgery
DX: I48.91 Unspecified atrial fibrillation (principal); I08.1 Rheumatic disorders of both mitral and tricuspid valves; I25.84 Coronary atherosclerosis due to calcified coronary lesion; Z95.0 Presence of cardiac pacemaker
CPT/HCPCS: 93306; 93970; 93922; 94060; 94726; 94729; 71046; G0463; 99204

== ENCOUNTER → 2019-05-02 | Outpatient (CLI) | payer MEDICARE ==
[2019-05-02 09:28] LABS: Appearance,Urine Clear (Clear); Bilirubin,Urine Negative (Negative); Blood,Urine Negative (Negative); Color,Urine Yellow; Glucose,Urine (UA) Negative (Negative); Ketones,Urine Negative (Negative); Leukocyte Esterase,Urine Negative (Negative); Nitrite,Urine Negative (Negative); PH, Urine 6.5 (5.0-8.0); Protein,Urine Negative (Negative); Specific Gravity,Urine 1.021 (1.001-1.035); Urobilinogen,Urine <2.0 mg/dL (<2.0)
[2019-05-02 09:43] LABS: Prothrombin Time 10.9 sec (9.0-12.0)
[2019-05-02 10:02] LABS: ALT 34 U/L (21-72); AST 30 U/L (17-59); African American GFR (CKD) >90 (>60 ml/min/1.73 sqM); Alkaline Phosphatase 74 U/L (38-126); Anion Gap 6 mmol/L; Blood Urea Nitrogen 20 mg/dL (9-20); Carbon Dioxide 30 mmol/L (22-30); Chloride 104 mmol/L (98-107); Cholesterol 97 mg/dL (<200); Glucose 104 mg/dL (74-99); HDL Cholesterol 61 mg/dL (40-60); LDL Cholesterol,Calculated 29 mg/dL (0-99); Magnesium 2.1 mg/dL (1.6-2.3); Non-African American GFR(CKD) 87 (>60 ml/min/1.73 sqM); Sodium 140 mmol/L (137-145); Total Bilirubin 0.7 mg/dL (0.2-1.3); Total Protein 6.9 g/dL (6.3-8.2); Triglycerides 34 mg/dL (<150)
[2019-05-02 10:18] LABS: HCT 38.1 % (39.0-53.0); HGB 12.7 gm/dL (13.0-17.5); MCH 31.1 pg (25.0-35.0); MCHC 33.4 g/dL (31.0-37.0); MCV 93.1 fL (80.0-100.0); Mean Platelet Volume 6.1; Platelet Count 253 k/uL (150-450); RBC 4.09 m/uL (4.30-5.90); RDW 13.7 % (11.5-15.5); WBC 7.3 k/uL (3.8-10.6)
--- NOTE | 2019-05-02 12:33 | P.PN ---
Progress Note - Text Progress Note Date: 05/02/19 5 meter walk completed: #1 3.61 sec #2 3.03 sec #3 3.53 sec
[2019-05-02 16:57] LABS: Hepatitis A Antibody IgM Non-Reactive (Non-Reactive); Hepatitis B Core IgM Non-Reactive (Non-Reactive); Hepatitis B Surface Antigen Non-Reactive (Non-Reactive); Hepatitis C IgG Antibody Non-Reactive (Non-Reactive)
== END | disposition home or self-care (01) ==
LOC: LABWHC1 08:37
PROVIDERS: ATTEND Surgery
DX: Z01.810 Encounter for preprocedural cardiovascular examination (principal); Z01.812 Encounter for preprocedural laboratory examination
CPT/HCPCS: 36415; 80053; 80061; 80074; 81003; 83036; 83735; 84443; 85027; 85610; 85730; 86850; 86900; 86901; 86920; 87070; 87086; 93005

== ENCOUNTER 2019-05-09 05:34 | Inpatient (IN) | payer MEDICARE ==
[~2019-05-09 05:34] MED LIST changes: +ALBUMIN HUMAN 25% 50 ML IV ONE; -ALPRAZolam 0.25 MG TAB PO PRN; +ASPIRIN 325 MG TAB PO ONE; -ASPIRIN 325 MG TAB PO STA; +ATORVASTATIN 10 MG TAB PO ONE; +CALCIUM CHLORIDE 100 MG/ML 10 ML SYRINGE IV ONE; +CHLORHEXIDINE GLUCONATE 15 ML CUP MUCOUS MEM ONE; +CLEVIDIPINE BUTYRATE 25 MG in EMPTY BAG 1 BAG IV ONE; +DEXTROSE 5% IN WATER 1,000 ML with POTASSIUM CHLORIDE 110 MEQ, MAGNESIUM SULFATE 16 MEQ... IV ONE; +DEXTROSE 5% IN WATER 1,000 ML with POTASSIUM CHLORIDE 25 MEQ, SODIUM CHLORIDE 2.5MEQ/ML... IRRIGATION ONE; +HEPARIN SODIUM 1,000 UN/ML (10ML VL) IV ONE; +HEPARIN SODIUM,PORCINE 5,000 UNIT in SODIUM CHLORIDE 0.9% 500 ML 500 ML IV ONE; +INSULIN REGULAR 100 UNIT in SODIUM CHLORIDE 0.9% 100 ML IV ONE; +LACTATED RINGERS 1,000 ML IV ONE; +LACTATED RINGERS 1,000 ML IV SCH; +MAGNESIUM SULFATE MG 500 MG/ML IV ONE; +MANNITOL 25% 12.5 GM/50 ML VIAL IV ONE; +METOPROLOL TARTRATE 12.5 MG TAB PO ONE; +MIDAZOLAM 2 MG/2 ML VIAL IV PRN; -NITROGLYCERIN SL TABS 0.4 MG TAB SUBLINGUAL PRN; +NITROGLYCERIN-D5W PMX 25 MG/250 ML BTL IV ONE; +NOREPINEPHRINE 4 MG in SODIUM CHLORIDE 0.9% 250 ML IV ONE; +PAPAVERINE 360 MG in SODIUM CHLORIDE 0.9% 90 ML IV ONE; +PHENYLEPHRINE 40 MG in SODIUM CHLORIDE 0.9% 250 ML IV ONE; +PROPOFOL 1,000 MG/100 ML VIAL IV ONE; +PROTAMINE SULFATE 10 MG/ML 25 ML VIAL IV ONE; +PROTAMINE SULFATE 250 MG in EMPTY BAG 1 BAG IV ONE; +SODIUM BICARB 8.4% 50 ML SYR (1 MEQ/ML) IV ONE; +SODIUM CHLORIDE 0.9% 1,000 ML IV ONE; -SODIUM CHLORIDE 0.9% 1,000 ML in EMPTY BAG 1 BAG IV ONE; +TRANEXAMIC ACID 2,000 MG in SODIUM CHLORIDE 0.9% 80 ML IV ONE; +ceFAZolin 1,000 MG in SODIUM CHLORIDE 0.9% IRRIGATIO 1,000 ML IRRIGATION ONE; +ceFAZolin 2,000 MG in SODIUM CHLORIDE 0.9% 30 ML IVPB ONE
[2019-05-09] MEDS ORDERED: LIDOCAINE 1% 20 ML VIAL (10MG/ML) FOR IV START INTRADERMA ONE (06:21)
[2019-05-09] MEDS ORDERED: ELECTROLYTE-R (PH 7.4) 1,000 ML IV.SOLN IV ONE (07:45)
[2019-05-09] MEDS ORDERED: MAGNESIUM SULFATE 4 MEQ/ML 10ML VIAL ONE (07:45)
[2019-05-09] MEDS ORDERED: SUFentanil 50 MCG/ML 2ML AMP ONE (07:45)
[2019-05-09] MEDS ORDERED: LIDOCAINE 2% SYG (PF) 100 MG/5 ML ONE (07:45)
[2019-05-09] MEDS ORDERED: fentaNYL (PF) 50 MCG/ML 2 ML AMP ONE (07:45)
[2019-05-09] MEDS ORDERED: HEPARIN SODIUM,PORCINE 10,000 UNIT/ML 1 ML VIAL ONE (07:45)
[2019-05-09] MEDS ORDERED: SUCCINYLCHOLINE CHLORIDE 100 MG/5 ML SYR IV ONE (07:45)
[2019-05-09] MEDS ORDERED: TRANEXAMIC ACID 1,000 MG/10 ML VIAL ONE (07:45)
[2019-05-09] MEDS ORDERED: CALCIUM CHLORIDE 100 MG/ML 10 ML SYRINGE ONE (07:45)
[2019-05-09] MEDS ORDERED: ALBUMIN HUMAN 5% (25gm) 500 ML VIAL IVPB ONE (07:45)
[2019-05-09] MEDS ORDERED: VECURONIUM 10 MG VIAL IV ONE (07:45)
[2019-05-09] MEDS ORDERED: NITROGLYCERIN-D5W PMX 50 MG/250 ML BOTTLE IV ONE (07:45)
[2019-05-09] MEDS ORDERED: PROPOFOL 10 MG/ML 20 ML VIAL IV ONE (07:45)
[2019-05-09] MEDS ORDERED: SODIUM CHLORIDE 0.9% IRRIG 1,000 ML BTL IRRIGATION ONE (07:45)
[2019-05-09] MEDS ORDERED: MIDAZOLAM 2 MG/2 ML VIAL ONE (07:45)
[2019-05-09] MEDS ORDERED: PHENYLEPHRINE-0.9% NACL SYG 1 MG/10 ML SYRINGE ONE (07:45)
[2019-05-09] MEDS ORDERED: PROTAMINE SULFATE 10 MG/ML 25 ML VIAL IV ONE (07:45)
[2019-05-09] MEDS ORDERED: fentaNYL (PF) 50 MCG/ML 50 ML VIAL ONE (07:45)
[2019-05-09] MEDS ORDERED: ePHEDrine SULFATE/0.9% NACL/PF 50 MG/5 ML SYRINGE IV ONE (07:45)
[2019-05-09] MEDS ORDERED: SODIUM CHLORIDE 0.9% 250 ML BAG ONE (07:45)
[2019-05-09 08:34] LABS: ABG Base Excess 1.8 mmol/L; ABG Glucose Whole Blood 96 mg/dL (75-99); ABG HCO3 27 mmol/L (21-25); ABG Hematocrit 35 % (34.0-46.0); ABG Ionized Calcium 4.7 mg/dL (4.5-5.3); ABG Lactic Acid Whole Blood 1.2 mmol/L (0.5-1.6); ABG Oxygen Saturation 99.7 % (94-97); ABG PCO2 42 mmHg (35-45); ABG PH 7.41 (7.35-7.45); ABG PO2 228 mmHg (83-108); ABG Potassium Whole Blood 4.6 mmol/L (3.4-4.5); ABG Sodium Whole Blood 141 mmol/L (135-146); ABG TCO2 28 mmol/L (19-24)
[2019-05-09 10:50] LABS: ABG Base Excess 0.9 mmol/L; ABG Glucose Whole Blood 102 mg/dL (75-99); ABG HCO3 26 mmol/L (21-25); ABG Hematocrit 32 % (34.0-46.0); ABG Ionized Calcium 4.6 mg/dL (4.5-5.3); ABG Lactic Acid Whole Blood 1.4 mmol/L (0.5-1.6); ABG Oxygen Saturation 99.8 % (94-97); ABG PCO2 44 mmHg (35-45); ABG PH 7.38 (7.35-7.45); ABG PO2 265 mmHg (83-108); ABG Potassium Whole Blood 4.4 mmol/L (3.4-4.5); ABG Sodium Whole Blood 140 mmol/L (135-146); ABG TCO2 28 mmol/L (19-24)
[2019-05-09 11:29] LABS: ABG Base Excess 0.5 mmol/L; ABG Glucose Whole Blood 96 mg/dL (75-99); ABG HCO3 25 mmol/L (21-25); ABG Hematocrit 27 % (34.0-46.0); ABG Ionized Calcium 4.2 mg/dL (4.5-5.3); ABG Lactic Acid Whole Blood 1.1 mmol/L (0.5-1.6); ABG PCO2 36 mmHg (35-45); ABG PH 7.44 (7.35-7.45); ABG Potassium Whole Blood 4.1 mmol/L (3.4-4.5); ABG Sodium Whole Blood 138 mmol/L (135-146); ABG TCO2 26 mmol/L (19-24)
[2019-05-09 12:04] LABS: ABG Base Excess 1.3 mmol/L; ABG Glucose Whole Blood 132 mg/dL (75-99); ABG HCO3 26 mmol/L (21-25); ABG Hematocrit 25 % (34.0-46.0); ABG Ionized Calcium 4.2 mg/dL (4.5-5.3); ABG PCO2 40 mmHg (35-45); ABG PH 7.42 (7.35-7.45); ABG PO2 364 mmHg (83-108); ABG Potassium Whole Blood 4.6 mmol/L (3.4-4.5); ABG Sodium Whole Blood 138 mmol/L (135-146); ABG TCO2 27 mmol/L (19-24)
[2019-05-09 12:35] LABS: ABG Base Excess 1.8 mmol/L; ABG Glucose Whole Blood 137 mg/dL (75-99); ABG HCO3 27 mmol/L (21-25); ABG Hematocrit 25 % (34.0-46.0); ABG Ionized Calcium 4.3 mg/dL (4.5-5.3); ABG Lactic Acid Whole Blood 1.3 mmol/L (0.5-1.6); ABG PCO2 41 mmHg (35-45); ABG PH 7.42 (7.35-7.45); ABG PO2 347 mmHg (83-108); ABG Potassium Whole Blood 4.5 mmol/L (3.4-4.5); ABG Sodium Whole Blood 138 mmol/L (135-146); ABG TCO2 28 mmol/L (19-24)
[2019-05-09 13:05] LABS: ABG Base Excess 1.8 mmol/L; ABG Glucose Whole Blood 131 mg/dL (75-99); ABG HCO3 26 mmol/L (21-25); ABG Hematocrit 25 % (34.0-46.0); ABG Ionized Calcium 4.3 mg/dL (4.5-5.3); ABG Lactic Acid Whole Blood 1.4 mmol/L (0.5-1.6); ABG Oxygen Saturation 99.9 % (94-97); ABG PCO2 40 mmHg (35-45); ABG PH 7.43 (7.35-7.45); ABG PO2 342 mmHg (83-108); ABG Potassium Whole Blood 4.5 mmol/L (3.4-4.5); ABG Sodium Whole Blood 139 mmol/L (135-146); ABG TCO2 28 mmol/L (19-24)
[2019-05-09] MEDS ORDERED: BENZOCAINE/MENTHOL LOZENG 1 EACH LOZENGE MUCOUS MEM PRN (15:26)
[2019-05-09] MEDS ORDERED: AMIODARONE 360 MG in DEXTROSE 5% IN WATER 200 ML IV PRN ×2 (15:26)
[2019-05-09] MEDS ORDERED: CALCIUM GLUCONATE 2 GM in SODIUM CHLORIDE 0.9% 100 ML IVPB PRN (15:26)
[2019-05-09] MEDS ORDERED: ALBUMIN HUMAN 5% 250 ML in EMPTY BAG 1 BAG IVPB PRN (15:26)
[2019-05-09] MEDS ORDERED: DEXTROSE 5% IN WATER 100 ML with AMIODARONE 150 MG IV PRN (15:26)
[2019-05-09] MEDS ORDERED: AMIODARONE 300 MG in DEXTROSE 5% IN WATER 250 ML IV PRN ×2 (15:26)
[2019-05-09] MEDS ORDERED: ONDANSETRON 4 MG/2 ML VIAL IVP PRN (15:26)
[2019-05-09] MEDS ORDERED: Phosphorus Replacement Protoco 1 EACH MISC MISCELLANE PRN (15:26)
[2019-05-09] MEDS ORDERED: Magnesium Replacement Protocol 1 EACH MISC MISCELLANE PRN (15:26)
[2019-05-09] MEDS ORDERED: Potassium Replacement Protocol 1 EACH MISC MISCELLANE PRN (15:26)
[2019-05-09] MEDS ORDERED: IPRATROPIUM-ALBUTEROL 3 ML NEB INHALATION PRN (15:26)
[2019-05-09] MEDS ORDERED: MORPHINE SULFATE 2 MG/ML SYRINGE IVP PRN (15:26)
[2019-05-09] MEDS ORDERED: METOCLOPRAMIDE 5 MG/ML 2 ML VIAL IVP PRN (15:26)
[2019-05-09] MEDS ORDERED: PROPOFOL 1,000 MG in EMPTY BAG 1 BAG IV SCH (15:30)
[2019-05-09 15:42] LABS: ABG PO2 >420 mmHg (83-108)
[2019-05-09] MEDS: IPRATROPIUM-ALBUTEROL 3 ML NEB INHALATION SCH ×3 (16:11→20:24)
[2019-05-09 16:15] LABS: Glucose,Whole Blood 112 mg/dL (75-99)
[2019-05-09 16:17] LABS: Basophils % (A) 0 %; Eosinophils # (A) 0.1 k/uL (0-0.7); Eosinophils % (A) 2 %; HCT 23.8 % (39.0-53.0); Lymphocytes # (A) 0.8 k/uL (1.0-4.8); Lymphocytes % (A) 10 %; MCH 31.4 pg (25.0-35.0); MCHC 33.8 g/dL (31.0-37.0); MCV 92.9 fL (80.0-100.0); Mean Platelet Volume 6.9; Monocytes # (A) 0.4 k/uL (0-1.0); Monocytes % (A) 5 %; Neutrophils % (A) 83 %; RBC 2.57 m/uL (4.30-5.90); RDW 13.7 % (11.5-15.5); WBC 8.4 k/uL (3.8-10.6)
[2019-05-09 16:20] LABS: Ionized Calcium 4.8 mg/dL (4.5-5.3)
[2019-05-09 16:25] LABS: HGB 8.1 gm/dL (13.0-17.5); Platelet Count 116 k/uL (150-450)
[2019-05-09 16:28] LABS: ABG HCO3 24 mmol/L (21-25); ABG Oxygen Saturation 99.8 % (94-97); ABG PCO2 41 mmHg (35-45); ABG PH 7.38 (7.35-7.45); ABG PO2 380 mmHg (83-108); ABG TCO2 25 mmol/L (19-24); Allen Test Performed? Yes
[2019-05-09 16:33] LABS: ALT 36 U/L (21-72); AST 35 U/L (17-59); African American GFR (CKD) >90 (>60 ml/min/1.73 sqM); Albumin 2.7 g/dL (3.5-5.0); Alkaline Phosphatase 28 U/L (38-126); Anion Gap 4 mmol/L; Blood Urea Nitrogen 13 mg/dL (9-20); Calcium 7.9 mg/dL (8.4-10.2); Carbon Dioxide 24 mmol/L (22-30); Chloride 112 mmol/L (98-107); Glucose 99 mg/dL (74-99); Magnesium 2.6 mg/dL (1.6-2.3); Non-African American GFR(CKD) >90 (>60 ml/min/1.73 sqM); Potassium 3.8 mmol/L (3.5-5.1); Sodium 140 mmol/L (137-145); Total Bilirubin 1.1 mg/dL (0.2-1.3); Total Protein 4.5 g/dL (6.3-8.2)
[2019-05-09 16:34] LABS: Glucose,Whole Blood 105 mg/dL (75-99)
--- NOTE | 2019-05-09 16:34 | XR ---
EXAMINATION TYPE: XR chest 1V portable DATE OF EXAM: 05/09/2019 Comparison: 04/19/2018 Clinical History: 74-year-old male Post Operative Cardiac Surgery Findings: ET tube tip at the level of the medial clavicular heads. The spinal drain and left-sided chest tube a re in place. No appreciable pneumothorax. Right IJ [place] catheter tip at the main pulmonary outfl ow tract. Heart normal size. Small left effusion with patchy left basilar opacity. Median sternotomy wires with post-CABG clips. Left anterior chest wall pacemaker generator with right atrial and right ventricular leads. Impression: 1. Lines and tubes as above. No appreciable pneumothorax. 2. Small left effusion with adjacent atelectasis and/or consolidation.
[2019-05-09 16:35] LABS: INR 1.4 (<1.2); Prothrombin Time 14.5 sec (9.0-12.0)
[2019-05-09] MEDS ORDERED: POTASSIUM CHLORIDE 20 MEQ in WATER FOR INJECTION 1 100ML.BAG IVPB ONE (16:51)
--- NOTE | 2019-05-09 16:51 | P.CNPUL ---
History of Present Illness Consult date: 05/09/19 Requesting physician: Mili Rain Reason for consult: other (status post CABG for triple vessel coronary artery disease) Chief complaint: known history of triple-vessel coronary artery disease. History of present illness: this is a 74-year-old white male who is familiar to my service, I saw this patient preoperatively for preoperative pulmonary clearance on 04/26/2019. Patient had positive stress test, patient underwent cardiac catheterization and he had documented triple-vessel coronary artery disease with 60% left main. Patient was referred to cardiac surgery, initially he declined surgery, however later on the patient changed his mind. I saw him and I cleared him for surgery, I felt that the patient was low operative risk. His PFT was basically unremarkable. Patient had significant smoking history of marijuana. He smoked marijuana for at least a 27 years. He has strong family history of alpha-1 antitrypsin deficiency, patient was screened, however his results are pending. Chest x-ray in the office was basically unremarkable. PFT was also unremarkable. Today, the patient underwent myocardial revascularization, postoperatively he was on mechanical ventilation, and I was asked to see him on consultation. Patient is presently on tidal volume of 550 assist-control rate of 12, FiO2 of 100%, and PEEP of 5 .ABG showed a pO2 of 380 pCO2 of 41.pH of 7.38. Hence the patient was placed on assist control rate of 12 and FiO2 down to 45%. Chest x-ray was reviewed, there was clearly adequate placement of the endotracheal tube, orogastric tube, chest tubes were noted, and [place]-Nancy catheter was noted to be in the proper position. Patient is presently on propofol at 45 mcg/kg/m, he is not requiring any pressors or any inotropes. Review of Systems ROS unobtainable: due to endotracheal tube Past Medical History Past Medical History: Atrial Fibrillation, Coronary Artery Disease (CAD), Cancer, CVA/TIA, Hyperlipidemia, Hypertension, Osteoarthritis (OA) Additional Past Medical History / Comment(s): Kidney Stones. Skin CA to chest. CMP. 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 BORDERLINE HTN, NO RX., recent alpha 1 test to check for deficiency-no results yet History of Any Multi-Drug Resistant Organisms: None Reported Past Surgical History: Appendectomy, Cholecystectomy, Heart Catheterization, Orthopedic Surgery, Pacemaker Additional Past Surgical History / Comment(s): Jonathon Knee Arthroscopy. NICK BUENO. [employer] Pacemaker April 2018. Heart Cath 01/06- triple vessel disease Past Anesthesia/Blood Transfusion Reactions: No Reported Reaction, Motion Sickness Additional Past Anesthesia/Blood Transfusion Reaction / Comment(s): Brother gets combative with anesthesia. Type of Cardiac Device: Permanent Pacemaker Device Placement Date:: 04/2018 Smoking Status: Former smoker - Past Family History Brother(s) Family Medical History: Deep Vein Thrombosis (DVT), Myocardial Infarction (NE) Additional Family Medical History / Comment(s): . Sister(s) Family Medical History: Cancer Father Family Medical History: Myocardial Infarction (NE) Additional Family Medical History / Comment(s): . Mother Family Medical History: Cancer Additional Family Medical History / Comment(s): lung Medications and Allergies Home Medications Medication Instructions Recorded Confirmed Type Aspirin 81 mg PO Q2D 12/04/14 05/09/19 History Apixaban [Eliquis] 5 mg PO BID 04/14/18 05/09/19 History Atorvastatin [Lipitor] 80 mg PO HS 12/28/18 05/09/19 History Metoprolol Succinate [Toprol XL] 75 mg PO DAILY 12/28/18 05/09/19 History Nitroglycerin Sl Tabs [Nitrostat] 0.4 mg SUBLINGUAL Q5M PRN #25 tab 01/06/1908/23 Rx Ezetimibe [Zetia] 10 mg PO DAILY 05/03/19 05/09/19 History Allergies Allergy/AdvReac Type Severity Reaction Status Date / Time No Known Allergies Allergy Verified 05/09/19 06:18 Physical Exam Vitals: Vital Signs Temp Pulse Pulse Resp BP BP Pulse Ox 05/09/19 16:20 80 05/09/19 16:13 80 05/09/19 06:17 98.2 F 58 L 18 193/85 199/88 99 Intake and Output 05/09/19 05/09/19 05/09/19 06:59 14:59 22:59 Intake Total 100 53 Output Total 2450 Balance 100 53 -2450 Intake: IV 100 53 Output: Urine 650 Estimated Blood Loss 1800 Other: Weight 83.7 kg Physical Exam: Revealed 74-year-old white male sedated, on mechanical ventilation. Head: Atraumatic normocephalic. HEENT:[Neck is supple.] [No neck masses.] [No thyromegaly.] [No JVD.]PERRLA, EOMI, moist mucous membranes, endotracheal tube and orogastric tube are intact. Chest: [Clear throughout, no crackles, no rhonchi, no wheezes.]symmetrical chest expansion. Cardiac Exam: [Normal S1 and S2, no S3 gallop, no murmur.positive pericardial rub.] Abdomen: [Soft, nontender, no megaly, no rebound, no guarding, negative bowel sounds.] Extremities: [No clubbing, no edema, no cyanosis.] Neurological Exam: cannot be assessed, patient is sedated, on propofol. Psychiatric: Cannot be assessed. Lymphatics: No lymphadenopathy. Skin: No rashes. Results - Laboratory Findings CBC and BMP: 05/09/19 16:04 05/09/19 16:04 ABG ABG pH 7.38 (7.35-7.45) 05/09/19 16:25 ABG pCO2 41 mmHg (35-45) 05/09/19 16:25 ABG pO2 380 mmHg (83-108) H 05/09/19 16:25 ABG O2 Saturation 99.8 % (94-97) H 05/09/19 16:25 PT/INR, D-dimer PT 14.5 sec (9.0-12.0) H 05/09/19 16:04 INR 1.4 (<1.2) H 05/09/19 16:04 Abnormal lab findings: Abnormal Labs 05/02/19 05/09/19 05/09/19 08:45 08:34 10:50 RBC Hgb Hct Plt Count Lymphocytes # PT INR APTT ABG pO2 228 H 265 H ABG HCO3 27 H 26 H ABG Total CO2 28 H 28 H ABG O2 Saturation 99.7 H 99.8 H ABG Hematocrit 32 L ABG Potassium 4.6 H ABG Ionized Calcium ABG Glucose 102 H Hemoglobin 11.3 L 10.4 L Chloride Creatinine POC Glucose (mg/dL) Calcium Magnesium Alkaline Phosphatase Total Protein Albumin Arterial Blood Potassium 4.6 H Arterial Blood Glucose 102 H Crossmatch See Detail 05/09/19 05/09/19 05/09/19 11:29 12:04 12:35 RBC Hgb Hct Plt Count Lymphocytes # PT INR APTT ABG pO2 >420 H 364 H 347 H ABG HCO3 26 H 27 H ABG Total CO2 26 H 27 H 28 H ABG O2 Saturation 100.0 H 100.0 H 100.0 H ABG Hematocrit 27 L 25 L 25 L ABG Potassium 4.6 H ABG Ionized Calcium 4.2 L 4.2 L 4.3 L ABG Glucose 132 H 137 H Hemoglobin 8.9 L 8.2 L 8.3 L Chloride Creatinine POC Glucose (mg/dL) Calcium Magnesium Alkaline Phosphatase Total Protein Albumin Arterial Blood Potassium 4.6 H Arterial Blood Glucose 132 H 137 H Crossmatch 05/09/19 05/09/19 05/09/19 13:05 16:04 16:04 RBC 2.57 L Hgb 8.1 L D Hct 23.8 L Plt Count 116 L D Lymphocytes # 0.8 L PT INR APTT ABG pO2 342 H ABG HCO3 26 H ABG Total CO2 28 H ABG O2 Saturation 99.9 H ABG Hematocrit 25 L ABG Potassium ABG Ionized Calcium 4.3 L ABG Glucose 131 H Hemoglobin 8.3 L Chloride 112 H Creatinine 0.63 L POC Glucose (mg/dL) Calcium 7.9 L Magnesium 2.6 H Alkaline Phosphatase 28 L Total Protein 4.5 L Albumin 2.7 L Arterial Blood Potassium Arterial Blood Glucose 131 H Crossmatch 05/09/19 05/09/19 05/09/19 16:04 16:04 16:22 RBC Hgb Hct Plt Count Lymphocytes # PT 14.5 H INR 1.4 H APTT 38.0 H ABG pO2 ABG HCO3 ABG Total CO2 ABG O2 Saturation ABG Hematocrit ABG Potassium ABG Ionized Calcium ABG Glucose Hemoglobin Chloride Creatinine POC Glucose (mg/dL) 112 H 105 H Calcium Magnesium Alkaline Phosphatase Total Protein Albumin Arterial Blood Potassium Arterial Blood Glucose Crossmatch 05/09/19 16:25 RBC Hgb Hct Plt Count Lymphocytes # PT INR APTT ABG pO2 380 H ABG HCO3 ABG Total CO2 25 H ABG O2 Saturation 99.8 H ABG Hematocrit ABG Potassium ABG Ionized Calcium ABG Glucose Hemoglobin Chloride Creatinine POC Glucose (mg/dL) Calcium Magnesium Alkaline Phosphatase Total Protein Albumin Arterial Blood Potassium Arterial Blood Glucose Crossmatch - Diagnostic Findings Chest x-ray: image reviewed (as noted in HPI.) Assessment and Plan Assessment: impression: 1 status post CABG, 4 triple-vessel coronary artery disease, postoperative day #0. 2 history of chronic atrial fibrillation. 3 history of dyslipidemia. 4 family history of alpha-1 antitrypsin deficiency. 5 significant history of marijuana smoking over the last 27 years. Recommendation: Continue ventilatory support. Ventilator settings were adjusted. FiO2 is down to 45%. Continue hemodynamic support as needed. Continue bronchodilators. Possible extubation in the next few hours. We'll continue to follow. Time with Patient: Greater than 30
[2019-05-09] MEDS: CLEVIDIPINE BUTYRATE 25 MG in EMPTY BAG 1 BAG IV SCH ×4 (16:53→20:29)
[2019-05-09] MEDS: SODIUM CHLORIDE 0.9% 1,000 ML IV SCH (16:54)
[2019-05-09] MEDS ORDERED: NITROGLYCERIN-D5W PMX 50 MG in DEXTROSE/WATER 1 250ML.BAG IV SCH (17:00)
[2019-05-09 17:14] LABS: Glucose,Whole Blood 110 mg/dL (75-99)
[2019-05-09] MEDS ORDERED: METOPROLOL TARTRATE 25 MG TAB PO STA (17:42)
[2019-05-09] MEDS: ACETAMINOPHEN IV (For NPO) 1,000 MG in EMPTY BAG 1 BAG IVPB SCH (18:10)
[2019-05-09 18:13] LABS: Glucose,Whole Blood 137 mg/dL (75-99)
[2019-05-09] MEDS ORDERED: INSULIN REGULAR BOLUS (FROM DRIP BAG) IV PRN (18:55)
[2019-05-09] MEDS ORDERED: INSULIN REGULAR 100 UNIT in SODIUM CHLORIDE 0.9% 100 ML IV SCH (19:00)
[2019-05-09 19:01] LABS: Basophils % (A) 0 %; Eosinophils # (A) 0.1 k/uL (0-0.7); Eosinophils % (A) 0 %; HCT 24.4 % (39.0-53.0); HGB 8.6 gm/dL (13.0-17.5); Lymphocytes # (A) 1.8 k/uL (1.0-4.8); Lymphocytes % (A) 11 %; MCH 32.8 pg (25.0-35.0); MCHC 35.3 g/dL (31.0-37.0); Monocytes # (A) 1.1 k/uL (0-1.0); Monocytes % (A) 7 %; Neutrophils # (A) 12.8 k/uL (1.3-7.7); Neutrophils % (A) 81 %; Platelet Count 136 k/uL (150-450); RBC 2.62 m/uL (4.30-5.90); RDW 13.9 % (11.5-15.5); WBC 15.9 k/uL (3.8-10.6)
[2019-05-09 19:02] LABS: Glucose,Whole Blood 164 mg/dL (75-99)
[2019-05-09 20:25] LABS: Glucose,Whole Blood 165 mg/dL (75-99)
[2019-05-09 20:41] LABS: ABG Base Excess -4.1 mmol/L; ABG HCO3 22 mmol/L (21-25); ABG Oxygen Saturation 98.7 % (94-97); ABG PCO2 40 mmHg (35-45); ABG PH 7.34 (7.35-7.45); ABG PO2 139 mmHg (83-108); ABG TCO2 23 mmol/L (19-24); Allen Test Performed? Yes
--- NOTE | 2019-05-09 20:41 | CONS ---
CONSULTATION Mr. Greco is a 74-year-old male who underwent coronary artery bypass grafting today by Dr. Rain. He has a known history of coronary artery disease, has underwent cardiac catheterization in January by Dr. Lang. At that time, was found to have significant triple-vessel coronary artery disease as well as significant disease involving the left main. Apparently, patient initially had declined surgery and subsequently agree on. He has a known history of chronic persistent atrial fibrillation, status post permanent pacemaker implantation. The patient is intubated and sedated. He has received 5 ways bypass per verbal report. He is paced. REVIEW OF SYMPTOMS: Review of systems could not be obtained. MEDICATION: As an outpatient included Zetia 10 mg daily, Lipitor 80 mg daily, aspirin once a day, Eliquis 5 mg twice a day. PHYSICAL EXAMINATION: 74-year-old male, intubated, sedated, on IV nitroglycerin. Blood pressure 155/70 with a heart rate in the 80s, paced. HEAD: Normocephalic. Eyes sclerae anicteric. Neck with [place]-Nancy noted. LUNGS: Clear to auscultation anteriorly. HEART: Regular rhythm S1, S2. No S3. No rub. ABDOMEN: Soft. No organomegaly. Hypoactive bowel sounds. EXTREMITIES: CHRIS wrapping in place. IMPRESSION: 1. Status post coronary artery bypass grafting. 2. Chronic persistent atrial fibrillation with 100% pacing at this time. He has been paced by the pacing wire. His pacemaker will be reprogrammed. 3. History of hyperlipidemia. RECOMMENDATION: From the cardiac standpoint, we will continue routine postoperative care. Once extubated, the patient needs to be re-initiated on Eliquis. We will reprogram the pacemaker and depending on his progress, further recommendations will be made. Thank you for this consult. We will follow with you. MMODL / IJN: [id number] / ANTHONY
[2019-05-09] MEDS ORDERED: MUPIROCIN 2% OINT 22 GM TUBE NASAL ONE (20:45)
[2019-05-09] MEDS ORDERED: METOPROLOL TARTRATE 12.5 MG TAB PO SCH (21:00)
[2019-05-09 21:22] LABS: Glucose,Whole Blood 154 mg/dL (75-99)
[2019-05-09 21:23] LABS: HCT 23.2 % (39.0-53.0); HGB 7.9 gm/dL (13.0-17.5); MCH 31.7 pg (25.0-35.0); MCV 93.5 fL (80.0-100.0); Mean Platelet Volume 6.8; Platelet Count 140 k/uL (150-450); RBC 2.48 m/uL (4.30-5.90); RDW 13.7 % (11.5-15.5); WBC 16.5 k/uL (3.8-10.6)
[2019-05-09 21:31] LABS: African American GFR (CKD) >90 (>60 ml/min/1.73 sqM); Anion Gap 5 mmol/L; Blood Urea Nitrogen 14 mg/dL (9-20); Calcium 7.8 mg/dL (8.4-10.2); Carbon Dioxide 24 mmol/L (22-30); Chloride 110 mmol/L (98-107); Glucose 139 mg/dL (74-99); Non-African American GFR(CKD) >90 (>60 ml/min/1.73 sqM); Potassium 4.1 mmol/L (3.5-5.1); Sodium 139 mmol/L (137-145)
[2019-05-09 21:59] LABS: Glucose,Whole Blood 138 mg/dL (75-99)
--- NOTE | 2019-05-09 23:26 | OP ---
OPERATIVE REPORT DATE OF THE SURGERY: 05/09/2019. SURGEON: Dr. Mili Rain. EQUIPMENT SERVICE TECHNICIAN: Boo Dwyer, and Oscar Valdez NP. PREOPERATIVE DIAGNOSES: Triple-vessel coronary artery disease with left main disease, mild left ventricular dysfunction, mild to moderate mitral valve regurgitation, chronic atrial fibrillation, status post dual-chamber pacemaker, history of transient ischemic attacks. POSTOPERATIVE DIAGNOSES: Triple-vessel coronary artery disease with left main disease, mild left ventricular dysfunction, mild to moderate mitral valve regurgitation, chronic atrial fibrillation, status post dual-chamber pacemaker, history of transient ischemic attacks. PROCEDURE: 1. Quintuple coronary artery bypass grafting using the left internal mammary artery to the ramus intermedius artery sequentially then to the left anterior descending artery, reverse saphenous vein graft from the aorta to the obtuse marginal artery, reverse saphenous vein graft from the aorta to the left ventricular branch of the right coronary artery, reverse saphenous vein graft from the previous graft to the posterior descending artery in a Y fashion. 2. Exclusion of the left atrial appendage using a 45 mm AtriClip. 3. Intraoperative graft flow measurements using the [employer] system. 4. Endoscopic harvesting of bilateral greater saphenous vein except below-knee on the right side. 5. Intraoperative transesophageal echocardiogram and epiaortic scanning. INDICATION FOR SURGERY: Patient is a gentleman who was worked up as an outpatient for fatigue and was found to have triple-vessel coronary artery disease with left main disease and quite a bit of calcification in the proximal coronary arteries. He is brought in today for elective coronary artery bypass grafting. He has a chronic persistent atrial fibrillation and is status post dual chamber pacemaker insertion. Will be only excluding his left atrial appendage. No plans to perform an ablation. The SDS risk was discussed with him. He understood and agreed to proceed. DESCRIPTION OF THE PROCEDURE: The patient in supine position. Right internal jugular Starlight-Nancy catheter and right radial arterial line were placed. His cardiac index is 2.3. PA pressure was 50/25, but his mean arterial pressure was 110 at that time. Subsequently, general endotracheal anesthesia was induced uneventfully. A Renae catheter was inserted. The patient PA pressure went back to normal. The patient received 2 g of cefazolin intravenously. The chest, abdomen and both lower extremities were prepped and draped using ChloraPrep. Ioban was used to cover the skin. Transesophageal echocardiogram showed mild left ventricular dysfunction, mild mitral valve regurgitation and no evidence of clot in the left atrial appendage. Midline sternotomy was performed and the bone is mildly osteoporotic. The patient had been on Eliquis, which was stopped for 3 days before surgery. However, he was showing a bit more oozing than usual. No bone wax was used. The left hemisternum was elevated and left internal mammary artery was harvested in a somewhat skeletonized fashion. The left pleura was intentionally opened in this process and was drained with a 19-Chinese John drain. The patient was given 5000 units of heparin and the mammary artery was clipped and transected distally and had excellent pulsatile flow in it and was around 2 mm in diameter. In the same setting, the left greater saphenous vein was harvested endoscopically from groin to above ankle level. Subsequently, we proceeded to harvesting the right-sided greater saphenous vein from groin to knee level to have adequate quality veins. Eventually we had good veins around 4 mm in diameter, but thickened. Both leg incisions were closed over drains. Mediastinal fat was transected between 2 ties and epiaortic scanning revealed some posterior wall disease, but no protruding atheroma. The disease was of the level of the pulmonary artery and we made sure we clamped above that. Pericardium was opened in an inverted T-fashion and a pericardial cradle was created. Findings included a normal soft aorta, a bit elongated and a normal size heart with evidence of palpable calcific coronary artery disease mainly in the right coronary artery and the proximal left anterior descending artery. After systemic heparinization, after placement of respective pledgeted pursestring, aortic cannulation with a 21-Chinese soft flow cannula and venous cannulation next to the right atrial appendage trying to spare the patient own atrially was performed using a 3-stage 29-Chinese venous cannula. Antegrade as well as retrograde cardioplegia catheter were placed. Cardiopulmonary bypass was initiated and patient temperature was allowed to drift down to 34 degrees Celsius. With the heart empty and beating, we looked at the target. It appeared that the LAD had a soft spot in its distal aspect as well as the ramus intermedius before it bifurcated. The obtuse marginal artery was found as it emerged in a very focal point from an intramyocardial course. The left ventricular branch of the right coronary artery as well as a proximal posterior descending artery were identified. Looking at the availability of the conduit and the configuration, we decided to proceed with vein to the obtuse marginal artery, to sequential the left internal mammary artery to the ramus and the left anterior descending artery and to take a Y-graft configuration from the vein on the right side to the 2 tributaries. Aorta was clamped and during aortic clamping, myocardial protection was achieved. An initial dose of 1 L of antegrade cold blood cardioplegia with adequate arrest at 200 mL followed by 300 mL of retrograde cold blood cardioplegia. All subsequent doses were given retrograde at 15 minutes intervals. The first distal anastomosis between a segment of reverse saphenous vein graft and the obtuse marginal artery which was around 1.75 mm in diameter thin-walled using Prolene 7- 0 in continuous fashion. The 2nd distal anastomosis was between another segment of reverse saphenous vein graft and the 1.75 mm left ventricle branch of the right coronary artery in a soft spot. The 3rd distal anastomosis was between another segment of vein and the 1.5 mm posterior descending artery which was thin-walled in its proximal aspect using Prolene 7-0 in continuous fashion. The 4th distal anastomosis was between the left internal mammary artery and the ramus intermedius artery in a sequential aref-ya-duty fashion. The fifth and last distal anastomosis were between the end of the left internal mammary artery and the distal aspect of the left anterior descending artery which was around 1.5 mm in diameter, thin-walled in a soft spot using Prolene 7-0 in continuous fashion. Heel and toes were probed before completion. Satisfied with the distal anastomosis, attention was moved at performing the proximal anastomosis. The segment of vein to the posterior descending artery was a very short segment and it was anastomosed proximally to the body of the vein graft going to the left ventricular branch at the level of the acute margin of the heart using Prolene 7-0 in a continuous fashion. Subsequently 2 buttons of 4 mm each were punched out of the ascending aorta and remaining 2 veins for the obtuse marginal artery and the inflow of the vein going to the left ventricular branch of the right coronary artery were anastomosed to the aorta using Prolene 7-0 in continuous fashion. The patient was given lidocaine and magnesium and de-airing maneuver were done and the heart was reperfused by unclamping the aorta. The patient was in Trendelenburg position and the aortic vent was on maximum. The patient regained a paced rhythm. After around 15 minutes of reperfusion we were able to wean off cardioplegia bypass without the need of any under inotropic or vasopressor support. The graft to the flow measurements using the [employer] system showed a flow 70 mL/minute and the proximal aspect of the vein going to the 2 right coronary artery tributaries. The flow into the vein graft going to the obtuse marginal artery was 48 mL/minute with a pulsatility index of 2.2, diastolic filling of 74%, showing also an excellent graft. The flow to the proximal aspect of the left internal mammary artery was 31 mL/minute, pulsatility index of 1.5, diastolic filling of 70% showing excellent graft. We had a good signal into the segment between the ramus, and the left anterior descending artery, but we could not capture a tracing. Satisfied with that, test dose and full dose protamine was given. Decannulation followed. One ventricular pacing wire was driven via the inferior aspect of the right ventricle. No atrial pacing wires were placed in view of the patient's, chronic persistent atrial fibrillation. A groove was made in the left pleuropericardial fat to accommodate the mammary artery medial to the lung and away from the posterior sternal table and to avoid kinking in view of the sequential configuration. Two nineteen- Chinese John drains were placed substernally. After ensuring adequate hemostasis and hemodynamics and after correct sponge, instrument, and needle count, the pericardium and pericardial fat were loosely approximated over the heart and the graft. Subsequently, the sternum was closed using 5 [id number] pineal cable after interposing fibular between the sternal edges. Thorough irrigation with cefazolin followed. The rest of the closure proceeded in layers. Skin glue was applied. The patient was transferred to the ICU in stable condition. V paced at 80, mean artery pressure of 72, PA pressure 32/17 with a cardiac index of 2.3 on low-dose nitroglycerin. MMODL / IJN: [id number] /
[2019-05-09 23:52] LABS: Glucose,Whole Blood 130 mg/dL (75-99)
[2019-05-10] MEDS: ACETAMINOPHEN IV (For NPO) 1,000 MG in EMPTY BAG 1 BAG IVPB SCH (00:13)
[2019-05-10] MEDS: HEPARIN SODIUM,PORCINE 5,000 UNIT/ML 1 ML VIAL SQ SCH ×4 (00:13→23:59)
[2019-05-10 01:25] LABS: Glucose,Whole Blood 132 mg/dL (75-99)
[2019-05-10 03:06] LABS: Glucose,Whole Blood 134 mg/dL (75-99)
[2019-05-10 04:05] LABS: Glucose,Whole Blood 134 mg/dL (75-99)
[2019-05-10 04:24] LABS: Basophils % (A) 0 %; Eosinophils % (A) 0 %; HCT 21.7 % (39.0-53.0); HGB 7.3 gm/dL (13.0-17.5); Lymphocytes % (A) 7 %; MCH 31.2 pg (25.0-35.0); MCHC 33.8 g/dL (31.0-37.0); MCV 92.2 fL (80.0-100.0); Monocytes # (A) 0.8 k/uL (0-1.0); Monocytes % (A) 6 %; Neutrophils # (A) 13.1 k/uL (1.3-7.7); Neutrophils % (A) 87 %; Platelet Count 132 k/uL (150-450); RBC 2.35 m/uL (4.30-5.90); RDW 13.9 % (11.5-15.5)
[2019-05-10 04:30] LABS: Ionized Calcium 4.6 mg/dL (4.5-5.3)
[2019-05-10 04:37] LABS: ALT 34 U/L (21-72); AST 43 U/L (17-59); African American GFR (CKD) >90 (>60 ml/min/1.73 sqM); Alkaline Phosphatase 30 U/L (38-126); Anion Gap 3 mmol/L; Blood Urea Nitrogen 14 mg/dL (9-20); Carbon Dioxide 25 mmol/L (22-30); Chloride 111 mmol/L (98-107); Glucose 133 mg/dL (74-99); Magnesium 2.2 mg/dL (1.6-2.3); Non-African American GFR(CKD) >90 (>60 ml/min/1.73 sqM); Potassium 4.9 mmol/L (3.5-5.1); Sodium 139 mmol/L (137-145); Total Bilirubin 0.8 mg/dL (0.2-1.3); Total Protein 4.9 g/dL (6.3-8.2)
[2019-05-10] MEDS ORDERED: HYDROcodone/APAP 5-325MG 1 EACH TAB PO PRN ×2 (06:00)
[2019-05-10 06:20] LABS: Glucose,Whole Blood 156 mg/dL (75-99)
[2019-05-10] MEDS: IPRATROPIUM-ALBUTEROL 3 ML NEB INHALATION SCH ×4 (08:04→19:58)
[2019-05-10] MEDS: CLOPIDOGREL 75 MG TAB PO SCH (08:18)
[2019-05-10] MEDS: METOPROLOL TARTRATE 25 MG TAB PO SCH ×2 (08:18→20:17)
[2019-05-10] MEDS: ATORVASTATIN 40 MG TAB PO SCH (08:19)
[2019-05-10] MEDS: ASPIRIN 325 MG TAB PO SCH (08:19)
[2019-05-10] MEDS: PANTOPRAZOLE 40 MG TABLET PO SCH (08:19)
--- NOTE | 2019-05-10 08:21 | PN ---
PROGRESS NOTE Mr. Greco is a 74-year-old male who underwent cardiac catheterization in January, underwent coronary artery bypass grafting yesterday with ELDER to the LAD off into the ramus intermedius, saphenous vein graft to the obtuse marginal branch, into the left ventricular branch of the right coronary artery and saphenous vein graft to the PDA with clipping of the left atrial appendage. He is extubated, sitting up in the chair. Hemodynamically, he is stable. He has chronic persistent atrial fibrillation ventricle with permanent pacemaker. Hemodynamically, he is stable. He is on no pressor. He is on Cleviprex. There is no evidence of malignant arrhythmia. He continues to be on aspirin, Lipitor 40 mg daily, Cleviprex, Plavix 75 mg daily, metoprolol tartrate 25 mg twice a day. PHYSICAL EXAMINATION: Blood pressure 112/50 with a heart rate in the 60s. PA pressure of 20. LUNGS: With mild decreased breath sounds at the bases. HEART: 100% paced, regular rate. S1, S2, no rub. ABDOMEN: Soft nontender, positive bowel sounds. EXTREMITIES: CHRIS wrapping in place. LAB DATA: Revealed BUN and creatinine of 14 and 0.62, potassium 4.9, hemoglobin of 7.3. IMPRESSION: 1. Status post coronary artery bypass grafting, stable. 2. Chronic persistent atrial fibrillation with permanent pacemaker implantation. 3. Hyperlipidemia. 4. Hypertension. RECOMMENDATION: Will continue present therapy. Once the chest tube is removed, then I would recommend to re-initiate treatment with Eliquis. Continue to increase activity. Continue incentive spirometry and depending on his progress, further recommendation will be made. MMODL / IJN: [id number] /
[2019-05-10 08:30] LABS: Glucose,Whole Blood 146 mg/dL (75-99)
--- NOTE | 2019-05-10 08:40 | XR ---
EXAMINATION TYPE: XR chest 1V portable DATE OF EXAM: 05/10/2019 HISTORY: Shortness of breath. COMPARISON: 05/09/2019 TECHNIQUE: Single view of the chest is submitted. FINDINGS: Endotracheal tube has been removed. Butler-Nancy catheter is in place. Left-sided chest tube and mediast inal drains also unchanged. No evidence for pneumothorax. Mild basilar atelectasis. The heart is stable. Hilar and mediastinal structures are within normal limits. Degenerative changes are seen of the dorsal spine. IMPRESSION: 1. No significant interval change in the appearance of the chest. Interval removal of the endotrache al tube.
[2019-05-10] MEDS ORDERED: METOPROLOL TARTRATE 12.5 MG TAB PO SCH (09:00)
[2019-05-10] MEDS ORDERED: BISACODYL 10 MG SUPP RECTAL PRN (09:00)
[2019-05-10] MEDS ORDERED: MAGNESIUM HYDROXIDE 2,400 MG/10 ML CUP PO PRN (09:00)
[2019-05-10] MEDS ORDERED: PANTOPRAZOLE 40 MG/10 ML VIAL IVP SCH (09:00)
[2019-05-10] MEDS ORDERED: ACETAMINOPHEN TAB 500 MG TAB PO PRN (09:08)
--- NOTE | 2019-05-10 09:31 | P.PN ---
Subjective Progress Note Date: 05/10/19 Principal diagnosis: Triple-vessel coronary artery disease with left main disease, mild left ventricular dysfunction, mild to moderate mitral valve regurgitation. Past medical history significant for chronic atrial fibrillation, on Eliquis for anticoagulation at home, status post dual-chamber pacemaker, hypertension, history of TIA, daily marijuana use, remote history of nicotine dependence and significant family history for premature coronary artery disease. POD #1 quadruple coronary artery bypass grafting using the left internal mammary artery to the ramus intermedius coronary artery sequentially then to the left anterior descending coronary artery, a reverse greater saphenous vein graft from the aorta to the obtuse marginal coronary artery, a reverse greater saphenous vein graft from the aorta to the left ventricular branch of the right coronary artery, a reverse greater saphenous vein graft from the previous graft to the posterior descending coronary artery in a Y fashion. Exclusion of the left atrial appendage using a 45 mm atrial clip. Intraoperative graft flow measurements using the [employer] system, endoscopic harvesting of the bilateral greater saphenous vein except below the knee on the right side, intraoperative transesophageal echocardiogram and epi-aortic scanning. Postoperative acute blood loss anemia, an expected outcome due to cardiopulmo nary bypass and hemodilution. The patient is currently sitting up to the bedside chair in the intensive care unit. He is in no acute distress. He denies any complaints of pain although is complaining of shortness of breath. Oxygen saturation are 96% on room air and he is achieving 1500 mL on his incentive spirometry. He was hemodynamically stable and is currently on no inotropic or pressor support. He was successfully extubated last night at 8:54 PM. Bedside telemetry showing a paced rhythm with a heart rate of 70. Mediastinal and left pleural chest tubes remain in place to low continuous wall suction -20 cm H2O. Draining thin serosanguineous drainage. Mediastinal chest tubes with 600 mL output since surgery and 120 mL output in the last 8 hours. Left pleural chest tubes with 300 mL output since surgery, 100 mL output in the last 8 hours. Right IJ Vincent-Nancy catheter in place with current cardiac output 5.0, cardiac index 2.5, PA pressures 22/10, CVP 2 mmHg. He remains afebrile. Left radial arterial line in place and functioning. Objective - Vital Signs Vital signs: Vital Signs Temp 98.1 F 05/10/19 04:00 Pulse 70 05/10/19 08:14 Resp 15 05/10/19 07:00 BP 112/57 05/10/19 07:00 Pulse Ox 99 05/10/19 07:00 Intake & Output 05/09/19 05/10/19 05/10/19 18:59 06:59 18:59 Intake Total 007.597 5124.945 Output Total 3140 1339 Balance -2414.233 75.945 Weight 88.4 kg Intake: IV 674.5 1296.5 Albumin Human 5% 250 ml 250 250 In Empty Bag 1 bag @ 250 mls/hr IVPB Q1HR PRN Rx#: [id number] Cardiac Output 90 260 Nitroglycerin-D5w Pmx 50 4.5 19.5 mg In Dextrose/Water 1 250ml.bag @ 5 MCG/MIN 1.5 mls/hr IV .Q24H [facility] Rx#: [id number] Potassium Chloride 20 meq 50 In Water For Injection 1 100ml.bag @ 50 mls/hr IVPB ONCE ONE Rx#: [id number] Pressure Bag 27 117 Sodium Chloride 0.9% 1, 150 550 000 ml @ 50 mls/hr IV . Q20H [facility] Rx#:[id number] ceFAZolin 2 gm In Sodium 50 100 Chloride 0.9% 50 ml @ 100 mls/hr IVPB ONCE ONE Rx# :[id number] Intake, IV Titration 51.267 118.445 Amount Clevidipine Butyrate 25 6.068 105.399 mg In Empty Bag 1 bag @ 1 MG/HR 2 mls/hr IV .Q24H [facility] Rx#:[id number] Insulin Regular 100 unit 13.046 In Sodium Chloride 0.9% 100 ml @ Per Protocol IV .Q0M [facility] Rx#:[id number] Propofol 1,000 mg In 45.199 Empty Bag 1 bag @ Titrate IV .Q0M [facility] Rx#: [id number] Output: Chest Tube Drainage 450 414 Left Lateral Chest 166 184 Mediastinal 284 230 Drainage 60 175 Left Calf 30 55 Right Calf 30 120 Urine 830 750 Estimated Blood Loss 1800 Other: Voiding Method Indwelling Catheter Indwelling Catheter ABP, PAP, CO, CI - Last Documented Arterial Blood Pressure 127/47 Pulmonary Artery Pressure 20/7 Cardiac Output 5 Cardiac Index 2.5 - Constitutional General appearance: Present: cooperative, no acute distress, obese - Respiratory Details: Lungs sounds essentially clear to his bilateral upper lobes, diminished to his bilateral bases. No wheezes, crackles or rhonchi. Respirations are symmetrical and nonlabored. Oxygen saturation is 96% on room air. Achieving 1500 mL on his incentive spirometry. Mediastinal and left pleural chest tubes remain in place to low continuous wall suction -20 cm H2O. Draining thin serosanguineous drainage. No air leak is present. - Cardiovascular Details: Regular rhythm and rate. S1 and S2 present, negative for S3, gallop or murmur. Sternum is stable. Bedside telemetry showing paced rhythm with heart rate of 70. Ventricular epicardial pacemaker wires in place and grounded. Right IJ Cordis with Vincent-Nancy catheter in place. Left radial arterial line in place and functioning. Heart hugger is in place and he is demonstrating appropriate use with encouragement. Knee-high JUAN CARLOS hose and sequential compression devices in place was bilateral lower extremities. Trace generalized edema. - Gastrointestinal Gastrointestinal Comment(s): Abdomen is soft, nontender and nondistended. Hypoactive bowel sounds present all 4 abdominal quadrants. No guarding or rigidity. No organomegaly appreciated. - Genitourinary Genitourinary Comment(s): Renae catheter for accurate I&O. Draining clear yellow urine, 380 mL output in the last 8 hours. - Integumentary Integumentary Comment(s): Skin is warm and dry. No clubbing or cyanosis is present. Midline sternal incision is clean, dry and approximated. No drainage or redness is present. Gauze dressing is clean, dry and intact. Bilateral lower extremity EVH sites clean, dry and approximated. No drainage or redness is present. Exofin dressing is clean and intact. Bilateral lower extremity YOHANA drains in place and draining thin serosanguineous drainage. - Neurologic Neurologic: Present: CNII-XII intact - Musculoskeletal Musculoskeletal: Present: gait normal, generalized weakness, strength equal bilaterally - Psychiatric Psychiatric Comment(s): Flat affect, periods of confusion. Psychiatric: Present: A&O x's 3, intact judgment & insight - Allied health notes Allied health notes reviewed: nursing - Labs CBC & Chem 7: 05/10/19 04:00 05/10/19 04:00 Labs: Abnormal Lab Results - Last 24 Hours (Table) 05/02/19 05/09/19 05/09/19 Range/Units 08:45 08:34 10:50 WBC (3.8-10.6) k/uL RBC (4.30-5.90) m/uL Hgb (13.0-17.5) gm/dL Hct (39.0-53.0) % Plt Count (150-450) k/uL Neutrophils # (1.3-7.7) k/uL Lymphocytes # (1.0-4.8) k/uL Monocytes # (0-1.0) k/uL PT (9.0-12.0) sec INR (<1.2) APTT (22.0-30.0) sec ABG pH (7.35-7.45) ABG pO2 228 H 265 H (83-108) mmHg ABG HCO3 27 H 26 H (21-25) mmol/L ABG Total CO2 28 H 28 H (19-24) mmol/L ABG O2 Saturation 99.7 H 99.8 H (94-97) % ABG Hematocrit 32 L (34.0-46.0) % ABG Potassium 4.6 H (3.4-4.5) mmol/L ABG Ionized Calcium (4.5-5.3) mg/dL ABG Glucose 102 H (75-99) mg/dL Hemoglobin 11.3 L 10.4 L (13.0-17.5) gm/dL Chloride (98-107) mmol/L Creatinine (0.66-1.25) mg/dL Glucose (74-99) mg/dL POC Glucose (mg/dL) (75-99) mg/dL Calcium (8.4-10.2) mg/dL Magnesium (1.6-2.3) mg/dL Alkaline Phosphatase (38-126) U/L Total Protein (6.3-8.2) g/dL Albumin (3.5-5.0) g/dL Arterial Blood Potassium 4.6 H (3.4-4.5) mmol/L Arterial Blood Glucose 102 H (75-99) mg/dL Crossmatch See Detail 05/09/19 05/09/19 05/09/19 Range/Units 11:29 12:04 12:35 WBC (3.8-10.6) k/uL RBC (4.30-5.90) m/uL Hgb (13.0-17.5) gm/dL Hct (39.0-53.0) % Plt Count (150-450) k/uL Neutrophils # (1.3-7.7) k/uL Lymphocytes # (1.0-4.8) k/uL Monocytes # (0-1.0) k/uL PT (9.0-12.0) sec INR (<1.2) APTT (22.0-30.0) sec ABG pH (7.35-7.45) ABG pO2 >420 H 364 H 347 H (83-108) mmHg ABG HCO3 26 H 27 H (21-25) mmol/L ABG Total CO2 26 H 27 H 28 H (19-24) mmol/L ABG O2 Saturation 100.0 H 100.0 H 100.0 H (94-97) % ABG Hematocrit 27 L 25 L 25 L (34.0-46.0) % ABG Potassium 4.6 H (3.4-4.5) mmol/L ABG Ionized Calcium 4.2 L 4.2 L 4.3 L (4.5-5.3) mg/dL ABG Glucose 132 H 137 H (75-99) mg/dL Hemoglobin 8.9 L 8.2 L 8.3 L (13.0-17.5) gm/dL Chloride (98-107) mmol/L Creatinine (0.66-1.25) mg/dL Glucose (74-99) mg/dL POC Glucose (mg/dL) (75-99) mg/dL Calcium (8.4-10.2) mg/dL Magnesium (1.6-2.3) mg/dL Alkaline Phosphatase (38-126) U/L Total Protein (6.3-8.2) g/dL Albumin (3.5-5.0) g/dL Arterial Blood Potassium 4.6 H (3.4-4.5) mmol/L Arterial Blood Glucose 132 H 137 H (75-99) mg/dL Crossmatch 05/09/19 05/09/19 05/09/19 Range/Units 13:05 16:04 16:04 WBC (3.8-10.6) k/uL RBC 2.57 L (4.30-5.90) m/uL Hgb 8.1 L D (13.0-17.5) gm/dL Hct 23.8 L (39.0-53.0) % Plt Count 116 L D (150-450) k/uL Neutrophils # (1.3-7.7) k/uL Lymphocytes # 0.8 L (1.0-4.8) k/uL Monocytes # (0-1.0) k/uL PT (9.0-12.0) sec INR (<1.2) APTT (22.0-30.0) sec ABG pH (7.35-7.45) ABG pO2 342 H (83-108) mmHg ABG HCO3 26 H (21-25) mmol/L ABG Total CO2 28 H (19-24) mmol/L ABG O2 Saturation 99.9 H (94-97) % ABG Hematocrit 25 L (34.0-46.0) % ABG Potassium (3.4-4.5) mmol/L ABG Ionized Calcium 4.3 L (4.5-5.3) mg/dL ABG Glucose 131 H (75-99) mg/dL Hemoglobin 8.3 L (13.0-17.5) gm/dL Chloride 112 H (98-107) mmol/L Creatinine 0.63 L (0.66-1.25) mg/dL Glucose (74-99) mg/dL POC Glucose (mg/dL) (75-99) mg/dL Calcium 7.9 L (8.4-10.2) mg/dL Magnesium 2.6 H (1.6-2.3) mg/dL Alkaline Phosphatase 28 L (38-126) U/L Total Protein 4.5 L (6.3-8.2) g/dL Albumin 2.7 L (3.5-5.0) g/dL Arterial Blood Potassium (3.4-4.5) mmol/L Arterial Blood Glucose 131 H (75-99) mg/dL Crossmatch 05/09/19 05/09/19 05/09/19 Range/Units 16:04 16:04 16:22 WBC (3.8-10.6) k/uL RBC (4.30-5.90) m/uL Hgb (13.0-17.5) gm/dL Hct (39.0-53.0) % Plt Count (150-450) k/uL Neutrophils # (1.3-7.7) k/uL Lymphocytes # (1.0-4.8) k/uL Monocytes # (0-1.0) k/uL PT 14.5 H (9.0-12.0) sec INR 1.4 H (<1.2) APTT 38.0 H (22.0-30.0) sec ABG pH (7.35-7.45) ABG pO2 (83-108) mmHg ABG HCO3 (21-25) mmol/L ABG Total CO2 (19-24) mmol/L ABG O2 Saturation (94-97) % ABG Hematocrit (34.0-46.0) % ABG Potassium (3.4-4.5) mmol/L ABG Ionized Calcium (4.5-5.3) mg/dL ABG Glucose (75-99) mg/dL Hemoglobin (13.0-17.5) gm/dL Chloride (98-107) mmol/L Creatinine (0.66-1.25) mg/dL Glucose (74-99) mg/dL POC Glucose (mg/dL) 112 H 105 H (75-99) mg/dL Calcium (8.4-10.2) mg/dL Magnesium (1.6-2.3) mg/dL Alkaline Phosphatase (38-126) U/L Total Protein (6.3-8.2) g/dL Albumin (3.5-5.0) g/dL Arterial Blood Potassium (3.4-4.5) mmol/L Arterial Blood Glucose (75-99) mg/dL Crossmatch 05/09/19 05/09/19 05/09/19 Range/Units 16:25 17:03 18:02 WBC (3.8-10.6) k/uL RBC (4.30-5.90) m/uL Hgb (13.0-17.5) gm/dL Hct (39.0-53.0) % Plt Count (150-450) k/uL Neutrophils # (1.3-7.7) k/uL Lymphocytes # (1.0-4.8) k/uL Monocytes # (0-1.0) k/uL PT (9.0-12.0) sec INR (<1.2) APTT (22.0-30.0) sec ABG pH (7.35-7.45) ABG pO2 380 H (83-108) mmHg ABG HCO3 (21-25) mmol/L ABG Total CO2 25 H (19-24) mmol/L ABG O2 Saturation 99.8 H (94-97) % ABG Hematocrit (34.0-46.0) % ABG Potassium (3.4-4.5) mmol/L ABG Ionized Calcium (4.5-5.3) mg/dL ABG Glucose (75-99) mg/dL Hemoglobin (13.0-17.5) gm/dL Chloride (98-107) mmol/L Creatinine (0.66-1.25) mg/dL Glucose (74-99) mg/dL POC Glucose (mg/dL) 110 H 137 H (75-99) mg/dL Calcium (8.4-10.2) mg/dL Magnesium (1.6-2.3) mg/dL Alkaline Phosphatase (38-126) U/L Total Protein (6.3-8.2) g/dL Albumin (3.5-5.0) g/dL Arterial Blood Potassium (3.4-4.5) mmol/L Arterial Blood Glucose (75-99) mg/dL Crossmatch 05/09/19 05/09/19 05/09/19 Range/Units 18:23 18:50 20:16 WBC 15.9 H (3.8-10.6) k/uL RBC 2.62 L (4.30-5.90) m/uL Hgb 8.6 L (13.0-17.5) gm/dL Hct 24.4 L (39.0-53.0) % Plt Count 136 L (150-450) k/uL Neutrophils # 12.8 H (1.3-7.7) k/uL Lymphocytes # (1.0-4.8) k/uL Monocytes # 1.1 H (0-1.0) k/uL PT (9.0-12.0) sec INR (<1.2) APTT (22.0-30.0) sec ABG pH (7.35-7.45) ABG pO2 (83-108) mmHg ABG HCO3 (21-25) mmol/L ABG Total CO2 (19-24) mmol/L ABG O2 Saturation (94-97) % ABG Hematocrit (34.0-46.0) % ABG Potassium (3.4-4.5) mmol/L ABG Ionized Calcium (4.5-5.3) mg/dL ABG Glucose (75-99) mg/dL Hemoglobin (13.0-17.5) gm/dL Chloride (98-107) mmol/L Creatinine (0.66-1.25) mg/dL Glucose (74-99) mg/dL POC Glucose (mg/dL) 164 H 165 H (75-99) mg/dL Calcium (8.4-10.2) mg/dL Magnesium (1.6-2.3) mg/dL Alkaline Phosphatase (38-126) U/L Total Protein (6.3-8.2) g/dL Albumin (3.5-5.0) g/dL Arterial Blood Potassium (3.4-4.5) mmol/L Arterial Blood Glucose (75-99) mg/dL Crossmatch 05/09/19 05/09/19 05/09/19 Range/Units 20:38 21:11 21:12 WBC 16.5 H (3.8-10.6) k/uL RBC 2.48 L (4.30-5.90) m/uL Hgb 7.9 L (13.0-17.5) gm/dL Hct 23.2 L (39.0-53.0) % Plt Count 140 L (150-450) k/uL Neutrophils # (1.3-7.7) k/uL Lymphocytes # (1.0-4.8) k/uL Monocytes # (0-1.0) k/uL PT (9.0-12.0) sec INR (<1.2) APTT (22.0-30.0) sec ABG pH 7.34 L (7.35-7.45) ABG pO2 139 H (83-108) mmHg ABG HCO3 (21-25) mmol/L ABG Total CO2 (19-24) mmol/L ABG O2 Saturation 98.7 H (94-97) % ABG Hematocrit (34.0-46.0) % ABG Potassium (3.4-4.5) mmol/L ABG Ionized Calcium (4.5-5.3) mg/dL ABG Glucose (75-99) mg/dL Hemoglobin (13.0-17.5) gm/dL Chloride (98-107) mmol/L Creatinine (0.66-1.25) mg/dL Glucose (74-99) mg/dL POC Glucose (mg/dL) 154 H (75-99) mg/dL Calcium (8.4-10.2) mg/dL Magnesium (1.6-2.3) mg/dL Alkaline Phosphatase (38-126) U/L Total Protein (6.3-8.2) g/dL Albumin (3.5-5.0) g/dL Arterial Blood Potassium (3.4-4.5) mmol/L Arterial Blood Glucose (75-99) mg/dL Crossmatch 05/09/19 05/09/19 05/09/19 Range/Units 21:12 21:57 23:50 WBC (3.8-10.6) k/uL RBC (4.30-5.90) m/uL Hgb (13.0-17.5) gm/dL Hct (39.0-53.0) % Plt Count (150-450) k/uL Neutrophils # (1.3-7.7) k/uL Lymphocytes # (1.0-4.8) k/uL Monocytes # (0-1.0) k/uL PT (9.0-12.0) sec INR (<1.2) APTT (22.0-30.0) sec ABG pH (7.35-7.45) ABG pO2 (83-108) mmHg ABG HCO3 (21-25) mmol/L ABG Total CO2 (19-24) mmol/L ABG O2 Saturation (94-97) % ABG Hematocrit (34.0-46.0) % ABG Potassium (3.4-4.5) mmol/L ABG Ionized Calcium (4.5-5.3) mg/dL ABG Glucose (75-99) mg/dL Hemoglobin (13.0-17.5) gm/dL Chloride 110 H (98-107) mmol/L Creatinine 0.64 L (0.66-1.25) mg/dL Glucose 139 H (74-99) mg/dL POC Glucose (mg/dL) 138 H 130 H (75-99) mg/dL Calcium 7.8 L (8.4-10.2) mg/dL Magnesium (1.6-2.3) mg/dL Alkaline Phosphatase (38-126) U/L Total Protein (6.3-8.2) g/dL Albumin (3.5-5.0) g/dL Arterial Blood Potassium (3.4-4.5) mmol/L Arterial Blood Glucose (75-99) mg/dL Crossmatch 05/10/19 05/10/19 05/10/19 Range/Units 01:23 03:04 04:00 WBC 15.0 H (3.8-10.6) k/uL RBC 2.35 L (4.30-5.90) m/uL Hgb 7.3 L (13.0-17.5) gm/dL Hct 21.7 L (39.0-53.0) % Plt Count 132 L (150-450) k/uL Neutrophils # 13.1 H (1.3-7.7) k/uL Lymphocytes # (1.0-4.8) k/uL Monocytes # (0-1.0) k/uL PT (9.0-12.0) sec INR (<1.2) APTT (22.0-30.0) sec ABG pH (7.35-7.45) ABG pO2 (83-108) mmHg ABG HCO3 (21-25) mmol/L ABG Total CO2 (19-24) mmol/L ABG O2 Saturation (94-97) % ABG Hematocrit (34.0-46.0) % ABG Potassium (3.4-4.5) mmol/L ABG Ionized Calcium (4.5-5.3) mg/dL ABG Glucose (75-99) mg/dL Hemoglobin (13.0-17.5) gm/dL Chloride (98-107) mmol/L Creatinine (0.66-1.25) mg/dL Glucose (74-99) mg/dL POC Glucose (mg/dL) 132 H 134 H (75-99) mg/dL Calcium (8.4-10.2) mg/dL Magnesium (1.6-2.3) mg/dL Alkaline Phosphatase (38-126) U/L Total Protein (6.3-8.2) g/dL Albumin (3.5-5.0) g/dL Arterial Blood Potassium (3.4-4.5) mmol/L Arterial Blood Glucose (75-99) mg/dL Crossmatch 05/10/19 05/10/19 05/10/19 Range/Units 04:00 04:04 06:19 WBC (3.8-10.6) k/uL RBC (4.30-5.90) m/uL Hgb (13.0-17.5) gm/dL Hct (39.0-53.0) % Plt Count (150-450) k/uL Neutrophils # (1.3-7.7) k/uL Lymphocytes # (1.0-4.8) k/uL Monocytes # (0-1.0) k/uL PT (9.0-12.0) sec INR (<1.2) APTT (22.0-30.0) sec ABG pH (7.35-7.45) ABG pO2 (83-108) mmHg ABG HCO3 (21-25) mmol/L ABG Total CO2 (19-24) mmol/L ABG O2 Saturation (94-97) % ABG Hematocrit (34.0-46.0) % ABG Potassium (3.4-4.5) mmol/L ABG Ionized Calcium (4.5-5.3) mg/dL ABG Glucose (75-99) mg/dL Hemoglobin (13.0-17.5) gm/dL Chloride 111 H (98-107) mmol/L Creatinine 0.62 L (0.66-1.25) mg/dL Glucose 133 H (74-99) mg/dL POC Glucose (mg/dL) 134 H 156 H (75-99) mg/dL Calcium 8.0 L (8.4-10.2) mg/dL Magnesium (1.6-2.3) mg/dL Alkaline Phosphatase 30 L (38-126) U/L Total Protein 4.9 L (6.3-8.2) g/dL Albumin 3.0 L (3.5-5.0) g/dL Arterial Blood Potassium (3.4-4.5) mmol/L Arterial Blood Glucose (75-99) mg/dL Crossmatch 05/10/19 Range/Units 08:28 WBC (3.8-10.6) k/uL RBC (4.30-5.90) m/uL Hgb (13.0-17.5) gm/dL Hct (39.0-53.0) % Plt Count (150-450) k/uL Neutrophils # (1.3-7.7) k/uL Lymphocytes # (1.0-4.8) k/uL Monocytes # (0-1.0) k/uL PT (9.0-12.0) sec INR (<1.2) APTT (22.0-30.0) sec ABG pH (7.35-7.45) ABG pO2 (83-108) mmHg ABG HCO3 (21-25) mmol/L ABG Total CO2 (19-24) mmol/L ABG O2 Saturation (94-97) % ABG Hematocrit (34.0-46.0) % ABG Potassium (3.4-4.5) mmol/L ABG Ionized Calcium (4.5-5.3) mg/dL ABG Glucose (75-99) mg/dL Hemoglobin (13.0-17.5) gm/dL Chloride (98-107) mmol/L Creatinine (0.66-1.25) mg/dL Glucose (74-99) mg/dL POC Glucose (mg/dL) 146 H (75-99) mg/dL Calcium (8.4-10.2) mg/dL Magnesium (1.6-2.3) mg/dL Alkaline Phosphatase (38-126) U/L Total Protein (6.3-8.2) g/dL Albumin (3.5-5.0) g/dL Arterial Blood Potassium (3.4-4.5) mmol/L Arterial Blood Glucose (75-99) mg/dL Crossmatch - Imaging and Cardiology Chest x-ray: report reviewed, image reviewed Assessment and Plan Assessment: 1. Triple-vessel coronary artery disease with left main disease status post quadruple coronary artery bypass grafting surgery 2. Chronic atrial fibrillation, status post exclusion left atrial appendage with a 45 mm [place] 3. Mild left ventricular dysfunction 4. Mild to moderate mitral valve regurgitation 5. History of hypertension 6. History of TIA 7. Daily marijuana use 8. Remote history of nicotine dependence 9. Significant family history for premature coronary artery disease 10. Postoperative acute blood loss anemia, expected Plan: 1. Continue to optimize medical management with aspirin, Plavix, statin and beta davida. Will increase his metoprolol tartrate 25 mg by mouth twice a day today. 2. Encourage use of his incentive spirometry every hour while awake. Bronchodilators per pulmonary management. 3. Remove right IJ Vincent-Nancy catheter, keep right IJ Cordis and placed to continuous CVP monitoring. 4. Will monitor daily chest x-rays and labs. Electrolyte replacement per protocol. 5. Insulin management per primary care service. 6. Pain control with current medication regimen. We will discontinue his opioids due to his periods of confusion. Start acetaminophen 1000 mg by mouth every 6 hours when necessary pain and Toradol 15 mg IV every 6 hours. 7. GI prophylaxis with Protonix. SCDs for DVT prophylaxis, and SQ heparin. 8. Increase activity as tolerated. Physical, occupational therapy and cardiac rehab following. 9. Keep mediastinal and left pleural chest tubes in place to continuous low wall suction -20 cm H2O. Keep accurate I&O's. 10. Keep Renae catheter for strict accurate intake and output 11. Remove ventricular epicardial pacemaker wires tomorrow morning 05/11/2019. 12. More recommendations to follow based on patient's clinical course. Time with Patient: Greater than 30
[2019-05-10 10:21] LABS: Glucose,Whole Blood 151 mg/dL (75-99)
[2019-05-10 11:51] LABS: Glucose,Whole Blood 163 mg/dL (75-99)
--- NOTE | 2019-05-10 11:54 | P.PN ---
Subjective Progress Note Date: 05/10/19 Principal diagnosis: Triple-vessel coronary artery disease POD #1 quadruple coronary artery bypass grafting using the left internal mammary artery to the ramus intermedius coronary artery sequentially then to the left anterior descending coronary artery, a reverse greater saphenous vein graft from the aorta to the obtuse marginal coronary artery, a reverse greater saphenous vein graft from the aorta to the left ventricular branch of the right coronary artery, a reverse greater saphenous vein graft from the previous graft to the posterior descending coronary artery in a Y fashion. Exclusion of the left atrial appendage using a 45 mm atrial clip. Intraoperative graft flow measurements using the [employer] system, endoscopic harvesting of the bilateral greater saphenous vein except below the knee on the right side, intraoperative transesophageal echocardiogram and epi-aortic scanning. Patient was reevaluated today on 05/10/2019, patient is now on room air, extubated last night. Hours after he arrived to the ICU. His postoperative course has been uneventful. Patient is asymptomatic, denies any shortness of breath, he is not requiring any pressors or inotropes. Patient is doing fairly well with incentive spirometry, chest x-ray showed very minimal basilar atelec tasis as expected. Chest tubes were noted. His hemodynamic profile today showed a cardiac index of 2.5, pulmonary artery pressure is 22/10. Patient is again asymptomatic labs were all reviewed. Objective - Vital Signs Vital signs: Vital Signs Temp 97.7 F 05/10/19 08:00 Pulse 69 05/10/19 09:00 Resp 19 05/10/19 09:00 BP 148/80 05/10/19 09:00 Pulse Ox 95 05/10/19 09:00 Intake & Output 05/09/19 05/10/19 05/10/19 18:59 06:59 18:59 Intake Total 532.912 6096.945 86.365 Output Total 3140 1339 45 Balance -2414.233 75.945 41.365 Weight 88.4 kg Intake: IV 674.5 1296.5 59 Albumin Human 5% 250 ml 250 250 In Empty Bag 1 bag @ 250 mls/hr IVPB Q1HR PRN Rx#: [id number] Cardiac Output 90 260 Nitroglycerin-D5w Pmx 50 4.5 19.5 0 mg In Dextrose/Water 1 250ml.bag @ 5 MCG/MIN 1.5 mls/hr IV .Q24H ÁNGEL Rx#: [id number] Potassium Chloride 20 meq 50 In Water For Injection 1 100ml.bag @ 50 mls/hr IVPB ONCE ONE Rx#: [id number] Pressure Bag 27 117 9 Sodium Chloride 0.9% 1, 150 550 50 000 ml @ 50 mls/hr IV . Q20H ÁNGEL Rx#:[id number] ceFAZolin 2 gm In Sodium 50 100 Chloride 0.9% 50 ml @ 100 mls/hr IVPB ONCE ONE Rx# :[id number] Intake, IV Titration 51.267 118.445 27.365 Amount Clevidipine Butyrate 25 6.068 105.399 mg In Empty Bag 1 bag @ 1 MG/HR 2 mls/hr IV .Q24H ÁNGEL Rx#:[id number] Insulin Regular 100 unit 13.046 6.59 In Sodium Chloride 0.9% 100 ml @ Per Protocol IV .Q0M ÁNGEL Rx#:[id number] Nitroglycerin-D5w Pmx 50 20.775 mg In Dextrose/Water 1 250ml.bag @ 5 MCG/MIN 1.5 mls/hr IV .Q24H ÁNGEL Rx#: [id number] Propofol 1,000 mg In 45.199 Empty Bag 1 bag @ Titrate IV .Q0M ÁNGEL Rx#: [id number] Output: Chest Tube Drainage 450 414 10 Left Lateral Chest 166 184 0 Mediastinal 284 230 10 Drainage 60 175 Left Calf 30 55 Right Calf 30 120 Urine 830 750 35 Estimated Blood Loss 1800 Other: Voiding Method Indwelling Catheter Indwelling Catheter ABP, PAP, CO, CI - Last Documented Arterial Blood Pressure 156/62 Pulmonary Artery Pressure 29/17 Cardiac Output 5 Cardiac Index 2.5 - Exam Physical Exam: Revealed 74-year-old white male in no distress. Head: Atraumatic, normocephalic. HEENT:[Neck is supple.] [No neck masses.] [No thyromegaly.] [No JVD.] Chest: [Clear throughout, slightly diminished breath sounds at the bases, no rhonchi and no wheezes. Chest tubes noted.] Mid sternal incision is clean dry and approximated. Cardiac Exam: [Normal S1 and S2, no S3 gallop, no murmur.] Abdomen: [Soft, nontender, no megaly, no rebound, no guarding, normal bowel sounds.] Extremities: [No clubbing, no edema, no cyanosis.] Neurological Exam: [No focal neurologic deficit.] Alert oriented 3. Psychiatric: Normal mood affect and normal mental status examination. Skin: No rashes. - Labs CBC & Chem 7: 05/10/19 04:00 05/10/19 04:00 Labs: Abnormal Lab Results - Last 24 Hours (Table) 05/02/19 05/09/19 05/09/19 Range/Units 08:45 08:34 10:50 WBC (3.8-10.6) k/uL RBC (4.30-5.90) m/uL Hgb (13.0-17.5) gm/dL Hct (39.0-53.0) % Plt Count (150-450) k/uL Neutrophils # (1.3-7.7) k/uL Lymphocytes # (1.0-4.8) k/uL Monocytes # (0-1.0) k/uL PT (9.0-12.0) sec INR (<1.2) APTT (22.0-30.0) sec ABG pH (7.35-7.45) ABG pO2 228 H 265 H (83-108) mmHg ABG HCO3 27 H 26 H (21-25) mmol/L ABG Total CO2 28 H 28 H (19-24) mmol/L ABG O2 Saturation 99.7 H 99.8 H (94-97) % ABG Hematocrit 32 L (34.0-46.0) % ABG Potassium 4.6 H (3.4-4.5) mmol/L ABG Ionized Calcium (4.5-5.3) mg/dL ABG Glucose 102 H (75-99) mg/dL Hemoglobin 11.3 L 10.4 L (13.0-17.5) gm/dL Chloride (98-107) mmol/L Creatinine (0.66-1.25) mg/dL Glucose (74-99) mg/dL POC Glucose (mg/dL) (75-99) mg/dL Calcium (8.4-10.2) mg/dL Magnesium (1.6-2.3) mg/dL Alkaline Phosphatase (38-126) U/L Total Protein (6.3-8.2) g/dL Albumin (3.5-5.0) g/dL Arterial Blood Potassium 4.6 H (3.4-4.5) mmol/L Arterial Blood Glucose 102 H (75-99) mg/dL Crossmatch See Detail 05/09/19 05/09/19 05/09/19 Range/Units 11:29 12:04 12:35 WBC (3.8-10.6) k/uL RBC (4.30-5.90) m/uL Hgb (13.0-17.5) gm/dL Hct (39.0-53.0) % Plt Count (150-450) k/uL Neutrophils # (1.3-7.7) k/uL Lymphocytes # (1.0-4.8) k/uL Monocytes # (0-1.0) k/uL PT (9.0-12.0) sec INR (<1.2) APTT (22.0-30.0) sec ABG pH (7.35-7.45) ABG pO2 >420 H 364 H 347 H (83-108) mmHg ABG HCO3 26 H 27 H (21-25) mmol/L ABG Total CO2 26 H 27 H 28 H (19-24) mmol/L ABG O2 Saturation 100.0 H 100.0 H 100.0 H (94-97) % ABG Hematocrit 27 L 25 L 25 L (34.0-46.0) % ABG Potassium 4.6 H (3.4-4.5) mmol/L ABG Ionized Calcium 4.2 L 4.2 L 4.3 L (4.5-5.3) mg/dL ABG Glucose 132 H 137 H (75-99) mg/dL Hemoglobin 8.9 L 8.2 L 8.3 L (13.0-17.5) gm/dL Chloride (98-107) mmol/L Creatinine (0.66-1.25) mg/dL Glucose (74-99) mg/dL POC Glucose (mg/dL) (75-99) mg/dL Calcium (8.4-10.2) mg/dL Magnesium (1.6-2.3) mg/dL Alkaline Phosphatase (38-126) U/L Total Protein (6.3-8.2) g/dL Albumin (3.5-5.0) g/dL Arterial Blood Potassium 4.6 H (3.4-4.5) mmol/L Arterial Blood Glucose 132 H 137 H (75-99) mg/dL Crossmatch 05/09/19 05/09/19 05/09/19 Range/Units 13:05 16:04 16:04 WBC (3.8-10.6) k/uL RBC 2.57 L (4.30-5.90) m/uL Hgb 8.1 L D (13.0-17.5) gm/dL Hct 23.8 L (39.0-53.0) % Plt Count 116 L D (150-450) k/uL Neutrophils # (1.3-7.7) k/uL Lymphocytes # 0.8 L (1.0-4.8) k/uL Monocytes # (0-1.0) k/uL PT (9.0-12.0) sec INR (<1.2) APTT (22.0-30.0) sec ABG pH (7.35-7.45) ABG pO2 342 H (83-108) mmHg ABG HCO3 26 H (21-25) mmol/L ABG Total CO2 28 H (19-24) mmol/L ABG O2 Saturation 99.9 H (94-97) % ABG Hematocrit 25 L (34.0-46.0) % ABG Potassium (3.4-4.5) mmol/L ABG Ionized Calcium 4.3 L (4.5-5.3) mg/dL ABG Glucose 131 H (75-99) mg/dL Hemoglobin 8.3 L (13.0-17.5) gm/dL Chloride 112 H (98-107) mmol/L Creatinine 0.63 L (0.66-1.25) mg/dL Glucose (74-99) mg/dL POC Glucose (mg/dL) (75-99) mg/dL Calcium 7.9 L (8.4-10.2) mg/dL Magnesium 2.6 H (1.6-2.3) mg/dL Alkaline Phosphatase 28 L (38-126) U/L Total Protein 4.5 L (6.3-8.2) g/dL Albumin 2.7 L (3.5-5.0) g/dL Arterial Blood Potassium (3.4-4.5) mmol/L Arterial Blood Glucose 131 H (75-99) mg/dL Crossmatch 05/09/19 05/09/19 05/09/19 Range/Units 16:04 16:04 16:22 WBC (3.8-10.6) k/uL RBC (4.30-5.90) m/uL Hgb (13.0-17.5) gm/dL Hct (39.0-53.0) % Plt Count (150-450) k/uL Neutrophils # (1.3-7.7) k/uL Lymphocytes # (1.0-4.8) k/uL Monocytes # (0-1.0) k/uL PT 14.5 H (9.0-12.0) sec INR 1.4 H (<1.2) APTT 38.0 H (22.0-30.0) sec ABG pH (7.35-7.45) ABG pO2 (83-108) mmHg ABG HCO3 (21-25) mmol/L ABG Total CO2 (19-24) mmol/L ABG O2 Saturation (94-97) % ABG Hematocrit (34.0-46.0) % ABG Potassium (3.4-4.5) mmol/L ABG Ionized Calcium (4.5-5.3) mg/dL ABG Glucose (75-99) mg/dL Hemoglobin (13.0-17.5) gm/dL Chloride (98-107) mmol/L Creatinine (0.66-1.25) mg/dL Glucose (74-99) mg/dL POC Glucose (mg/dL) 112 H 105 H (75-99) mg/dL Calcium (8.4-10.2) mg/dL Magnesium (1.6-2.3) mg/dL Alkaline Phosphatase (38-126) U/L Total Protein (6.3-8.2) g/dL Albumin (3.5-5.0) g/dL Arterial Blood Potassium (3.4-4.5) mmol/L Arterial Blood Glucose (75-99) mg/dL Crossmatch 05/09/19 05/09/19 05/09/19 Range/Units 16:25 17:03 18:02 WBC (3.8-10.6) k/uL RBC (4.30-5.90) m/uL Hgb (13.0-17.5) gm/dL Hct (39.0-53.0) % Plt Count (150-450) k/uL Neutrophils # (1.3-7.7) k/uL Lymphocytes # (1.0-4.8) k/uL Monocytes # (0-1.0) k/uL PT (9.0-12.0) sec INR (<1.2) APTT (22.0-30.0) sec ABG pH (7.35-7.45) ABG pO2 380 H (83-108) mmHg ABG HCO3 (21-25) mmol/L ABG Total CO2 25 H (19-24) mmol/L ABG O2 Saturation 99.8 H (94-97) % ABG Hematocrit (34.0-46.0) % ABG Potassium (3.4-4.5) mmol/L ABG Ionized Calcium (4.5-5.3) mg/dL ABG Glucose (75-99) mg/dL Hemoglobin (13.0-17.5) gm/dL Chloride (98-107) mmol/L Creatinine (0.66-1.25) mg/dL Glucose (74-99) mg/dL POC Glucose (mg/dL) 110 H 137 H (75-99) mg/dL Calcium (8.4-10.2) mg/dL Magnesium (1.6-2.3) mg/dL Alkaline Phosphatase (38-126) U/L Total Protein (6.3-8.2) g/dL Albumin (3.5-5.0) g/dL Arterial Blood Potassium (3.4-4.5) mmol/L Arterial Blood Glucose (75-99) mg/dL Crossmatch 05/09/19 05/09/19 05/09/19 Range/Units 18:23 18:50 20:16 WBC 15.9 H (3.8-10.6) k/uL RBC 2.62 L (4.30-5.90) m/uL Hgb 8.6 L (13.0-17.5) gm/dL Hct 24.4 L (39.0-53.0) % Plt Count 136 L (150-450) k/uL Neutrophils # 12.8 H (1.3-7.7) k/uL Lymphocytes # (1.0-4.8) k/uL Monocytes # 1.1 H (0-1.0) k/uL PT (9.0-12.0) sec INR (<1.2) APTT (22.0-30.0) sec ABG pH (7.35-7.45) ABG pO2 (83-108) mmHg ABG HCO3 (21-25) mmol/L ABG Total CO2 (19-24) mmol/L ABG O2 Saturation (94-97) % ABG Hematocrit (34.0-46.0) % ABG Potassium (3.4-4.5) mmol/L ABG Ionized Calcium (4.5-5.3) mg/dL ABG Glucose (75-99) mg/dL Hemoglobin (13.0-17.5) gm/dL Chloride (98-107) mmol/L Creatinine (0.66-1.25) mg/dL Glucose (74-99) mg/dL POC Glucose (mg/dL) 164 H 165 H (75-99) mg/dL Calcium (8.4-10.2) mg/dL Magnesium (1.6-2.3) mg/dL Alkaline Phosphatase (38-126) U/L Total Protein (6.3-8.2) g/dL Albumin (3.5-5.0) g/dL Arterial Blood Potassium (3.4-4.5) mmol/L Arterial Blood Glucose (75-99) mg/dL Crossmatch 05/09/19 05/09/19 05/09/19 Range/Units 20:38 21:11 21:12 WBC 16.5 H (3.8-10.6) k/uL RBC 2.48 L (4.30-5.90) m/uL Hgb 7.9 L (13.0-17.5) gm/dL Hct 23.2 L (39.0-53.0) % Plt Count 140 L (150-450) k/uL Neutrophils # (1.3-7.7) k/uL Lymphocytes # (1.0-4.8) k/uL Monocytes # (0-1.0) k/uL PT (9.0-12.0) sec INR (<1.2) APTT (22.0-30.0) sec ABG pH 7.34 L (7.35-7.45) ABG pO2 139 H (83-108) mmHg ABG HCO3 (21-25) mmol/L ABG Total CO2 (19-24) mmol/L ABG O2 Saturation 98.7 H (94-97) % ABG Hematocrit (34.0-46.0) % ABG Potassium (3.4-4.5) mmol/L ABG Ionized Calcium (4.5-5.3) mg/dL ABG Glucose (75-99) mg/dL Hemoglobin (13.0-17.5) gm/dL Chloride (98-107) mmol/L Creatinine (0.66-1.25) mg/dL Glucose (74-99) mg/dL POC Glucose (mg/dL) 154 H (75-99) mg/dL Calcium (8.4-10.2) mg/dL Magnesium (1.6-2.3) mg/dL Alkaline Phosphatase (38-126) U/L Total Protein (6.3-8.2) g/dL Albumin (3.5-5.0) g/dL Arterial Blood Potassium (3.4-4.5) mmol/L Arterial Blood Glucose (75-99) mg/dL Crossmatch 05/09/19 05/09/19 05/09/19 Range/Units 21:12 21:57 23:50 WBC (3.8-10.6) k/uL RBC (4.30-5.90) m/uL Hgb (13.0-17.5) gm/dL Hct (39.0-53.0) % Plt Count (150-450) k/uL Neutrophils # (1.3-7.7) k/uL Lymphocytes # (1.0-4.8) k/uL Monocytes # (0-1.0) k/uL PT (9.0-12.0) sec INR (<1.2) APTT (22.0-30.0) sec ABG pH (7.35-7.45) ABG pO2 (83-108) mmHg ABG HCO3 (21-25) mmol/L ABG Total CO2 (19-24) mmol/L ABG O2 Saturation (94-97) % ABG Hematocrit (34.0-46.0) % ABG Potassium (3.4-4.5) mmol/L ABG Ionized Calcium (4.5-5.3) mg/dL ABG Glucose (75-99) mg/dL Hemoglobin (13.0-17.5) gm/dL Chloride 110 H (98-107) mmol/L Creatinine 0.64 L (0.66-1.25) mg/dL Glucose 139 H (74-99) mg/dL POC Glucose (mg/dL) 138 H 130 H (75-99) mg/dL Calcium 7.8 L (8.4-10.2) mg/dL Magnesium (1.6-2.3) mg/dL Alkaline Phosphatase (38-126) U/L Total Protein (6.3-8.2) g/dL Albumin (3.5-5.0) g/dL Arterial Blood Potassium (3.4-4.5) mmol/L Arterial Blood Glucose (75-99) mg/dL Crossmatch 05/10/19 05/10/19 05/10/19 Range/Units 01:23 03:04 04:00 WBC 15.0 H (3.8-10.6) k/uL RBC 2.35 L (4.30-5.90) m/uL Hgb 7.3 L (13.0-17.5) gm/dL Hct 21.7 L (39.0-53.0) % Plt Count 132 L (150-450) k/uL Neutrophils # 13.1 H (1.3-7.7) k/uL Lymphocytes # (1.0-4.8) k/uL Monocytes # (0-1.0) k/uL PT (9.0-12.0) sec INR (<1.2) APTT (22.0-30.0) sec ABG pH (7.35-7.45) ABG pO2 (83-108) mmHg ABG HCO3 (21-25) mmol/L ABG Total CO2 (19-24) mmol/L ABG O2 Saturation (94-97) % ABG Hematocrit (34.0-46.0) % ABG Potassium (3.4-4.5) mmol/L ABG Ionized Calcium (4.5-5.3) mg/dL ABG Glucose (75-99) mg/dL Hemoglobin (13.0-17.5) gm/dL Chloride (98-107) mmol/L Creatinine (0.66-1.25) mg/dL Glucose (74-99) mg/dL POC Glucose (mg/dL) 132 H 134 H (75-99) mg/dL Calcium (8.4-10.2) mg/dL Magnesium (1.6-2.3) mg/dL Alkaline Phosphatase (38-126) U/L Total Protein (6.3-8.2) g/dL Albumin (3.5-5.0) g/dL Arterial Blood Potassium (3.4-4.5) mmol/L Arterial Blood Glucose (75-99) mg/dL Crossmatch 05/10/19 05/10/19 05/10/19 Range/Units 04:00 04:04 06:19 WBC (3.8-10.6) k/uL RBC (4.30-5.90) m/uL Hgb (13.0-17.5) gm/dL Hct (39.0-53.0) % Plt Count (150-450) k/uL Neutrophils # (1.3-7.7) k/uL Lymphocytes # (1.0-4.8) k/uL Monocytes # (0-1.0) k/uL PT (9.0-12.0) sec INR (<1.2) APTT (22.0-30.0) sec ABG pH (7.35-7.45) ABG pO2 (83-108) mmHg ABG HCO3 (21-25) mmol/L ABG Total CO2 (19-24) mmol/L ABG O2 Saturation (94-97) % ABG Hematocrit (34.0-46.0) % ABG Potassium (3.4-4.5) mmol/L ABG Ionized Calcium (4.5-5.3) mg/dL ABG Glucose (75-99) mg/dL Hemoglobin (13.0-17.5) gm/dL Chloride 111 H (98-107) mmol/L Creatinine 0.62 L (0.66-1.25) mg/dL Glucose 133 H (74-99) mg/dL POC Glucose (mg/dL) 134 H 156 H (75-99) mg/dL Calcium 8.0 L (8.4-10.2) mg/dL Magnesium (1.6-2.3) mg/dL Alkaline Phosphatase 30 L (38-126) U/L Total Protein 4.9 L (6.3-8.2) g/dL Albumin 3.0 L (3.5-5.0) g/dL Arterial Blood Potassium (3.4-4.5) mmol/L Arterial Blood Glucose (75-99) mg/dL Crossmatch 05/10/19 05/10/19 Range/Units 08:28 10:20 WBC (3.8-10.6) k/uL RBC (4.30-5.90) m/uL Hgb (13.0-17.5) gm/dL Hct (39.0-53.0) % Plt Count (150-450) k/uL Neutrophils # (1.3-7.7) k/uL Lymphocytes # (1.0-4.8) k/uL Monocytes # (0-1.0) k/uL PT (9.0-12.0) sec INR (<1.2) APTT (22.0-30.0) sec ABG pH (7.35-7.45) ABG pO2 (83-108) mmHg ABG HCO3 (21-25) mmol/L ABG Total CO2 (19-24) mmol/L ABG O2 Saturation (94-97) % ABG Hematocrit (34.0-46.0) % ABG Potassium (3.4-4.5) mmol/L ABG Ionized Calcium (4.5-5.3) mg/dL ABG Glucose (75-99) mg/dL Hemoglobin (13.0-17.5) gm/dL Chloride (98-107) mmol/L Creatinine (0.66-1.25) mg/dL Glucose (74-99) mg/dL POC Glucose (mg/dL) 146 H 151 H (75-99) mg/dL Calcium (8.4-10.2) mg/dL Magnesium (1.6-2.3) mg/dL Alkaline Phosphatase (38-126) U/L Total Protein (6.3-8.2) g/dL Albumin (3.5-5.0) g/dL Arterial Blood Potassium (3.4-4.5) mmol/L Arterial Blood Glucose (75-99) mg/dL Crossmatch Assessment and Plan Assessment: impression: 1. Triple-vessel coronary artery disease with left main disease status post quadruple coronary artery bypass grafting surgery postoperative day #1. 2 history of chronic atrial fibrillation. 3 history of dyslipidemia. 4 family history of alpha-1 antitrypsin deficiency. 5 significant history of marijuana smoking over the last 27 years. 6 mild left ventricular dysfunction 7 [id number] mitral valve regurgitation 8 family history of premature coronary artery disease. 9 postoperative atelectasis as noted on the chest x-ray, and this is expected. Recommendation: Continue to optimize medical management including beta blockers statins Plavix and aspirin. Encourage incentive spirometry, and continue bronchodilators. Remove and discontinue unnecessary catheters and lines. Continue insulin management. Continue pain control. Increase activity as tolerated. Continue to monitor and possibly discontinue chest tubes in the next 24 hours. Early ambulation. We'll continue to follow. Time with Patient: Less than 30
[2019-05-10] MEDS ORDERED: LOSARTAN 25 MG TAB PO SCH (12:00)
[2019-05-10 13:19] VITALS: BMI 27.9
--- NOTE | 2019-05-10 13:35 | P.CONS ---
History of Present Illness - Reason for Consult Consult date: 05/09/19 Medical Management Requesting physician: Mili Rain - Chief Complaint CAD, post CABG, HTN and Hyperlipidemia - History of Present Illness 74-year-old male one of my office patient with past medical history of CAD, A. fib, hypertension, hyperlipidemia and previous history of CVA who had the history of pacemaker as well developed to have A. fib with RVR was referred to cardiology and end up going for heart catheter for positive stress test came back with significant 3 vessel disease. Patient initially refused to go for surgery and then was referred to cardiothoracic surgeon in [facility] and ended up schedule elective CABG on 05/09/[address] Pearson. Patient was seen pulmonary had PFT and other testing and prepare for surgery. Patient had 5 vessel bypass surgery successfully was on mechanical ventilation had 2 chest tube otherwise stable was transferred to the ICU. Review of Systems Patient is on mechanical ventilation review of system was collected shortly before his surgery while he was awake and not intubated. CONSTITUTIONAL: Well-developed no acute respiratory distress. EYES: No icterus sclerae, no conjunctivitis. EARS, NOSE, MOUTH, THROAT, and FACE: No sore throat, lymphadenopathy, carotid bruits or deformity. RESPIRATORY: Mild shortness of breath with no cough or wheezes. CARDIOVASCULAR: Positive A. fib, pacemaker, positive stress test and 3 vessel disease. GASTROINTESTINAL: No Abd pain, Nausea or vomiting, no Diarrhea or constipation, No GI Bleed, no distention or masses. GENITOURINARY: Negative for Hematuria or UTI, no kidney stones. INTEGUMENT/BREAST: Negative for any muscular injury with mild osteoarthritis.. HEMATOLOGIC/LYMPHATIC: Negative for bleed or purpura. MUSCULOSKELTAL: Negative for Myalgia or arthralgia. NEURLOGICAL: No LOC, Sz or syncope, blurred vision dizziness or abnormality.. BEHAVIORAL/PSYCH: Negative. ENDOCRINE: Negative. Past Medical History Past Medical History: Atrial Fibrillation, Coronary Artery Disease (CAD), Cancer, CVA/TIA, Hyperlipidemia, Hypertension, Osteoarthritis (OA) Additional Past Medical History / Comment(s): Kidney Stones. Skin CA to chest. CMP. 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 BORDERLINE HTN, NO RX., recent alpha 1 test to check for deficiency-no results yet History of Any Multi-Drug Resistant Organisms: None Reported Past Surgical History: Appendectomy, Cholecystectomy, Heart Catheterization, Orthopedic Surgery, Pacemaker Additional Past Surgical History / Comment(s): Jonathon Knee Arthroscopy. COLONOSCOPY. [employer] Pacemaker April 2018. Heart Cath 01/06- triple vessel disease Past Anesthesia/Blood Transfusion Reactions: No Reported Reaction, Motion Sickness Additional Past Anesthesia/Blood Transfusion Reaction / Comm: Brother gets combative with anesthesia. Type of Cardiac Device: Permanent Pacemaker Device Placement Date:: 04/2018 Smoking Status: Former smoker - Past Family History Brother(s) Family Medical History: Deep Vein Thrombosis (DVT), Myocardial Infarction ([place]) Additional Family Medical History / Comment(s): . Sister(s) Family Medical History: Cancer Father Family Medical History: Myocardial Infarction ([place]) Additional Family Medical History / Comment(s): . Mother Family Medical History: Cancer Additional Family Medical History / Comment(s): lung Medications and Allergies Home Medications Medication Instructions Recorded Confirmed Type Aspirin 81 mg PO Q2D 12/04/14 05/09/19 History Apixaban [Eliquis] 5 mg PO BID 04/14/18 05/09/19 History Atorvastatin [Lipitor] 80 mg PO HS 12/28/18 05/09/19 History Metoprolol Succinate [Toprol XL] 75 mg PO DAILY 12/28/18 05/09/19 History Nitroglycerin Sl Tabs [Nitrostat] 0.4 mg SUBLINGUAL Q5M PRN #25 tab 01/06/19 05/09/19 Rx Ezetimibe [Zetia] 10 mg PO DAILY 05/03/19 05/09/19 History Allergies Allergy/AdvReac Type Severity Reaction Status Date / Time No Known Allergies Allergy Verified 05/09/19 06:18 Physical Exam Vitals: Vital Signs Temp Pulse Pulse Pulse Resp BP BP 05/09/19 20:55 05/09/19 20:08 80 05/09/19 19:58 80 05/09/19 19:00 97.2 F L 80 18 126/65 05/09/19 18:45 80 20 107/55 05/09/19 18:30 80 18 121/61 05/09/19 18:15 80 19 05/09/19 18:00 80 18 128/65 05/09/19 17:45 80 16 129/65 05/09/19 17:30 80 14 130/72 05/09/19 17:15 80 16 12/03/19 17:00 80 16 05/09/19 16:45 80 18 05/09/19 16:30 80 17 05/09/19 16:20 80 05/09/19 16:15 80 12 05/09/19 16:13 80 05/09/19 16:00 95.7 F L 80 80 16 05/09/19 06:17 98.2 F 58 L 18 193/85 BP Pulse Ox 05/09/19 20:55 98 05/09/19 20:08 05/09/19 19:58 05/09/19 19:00 99 05/09/19 18:45 99 05/09/19 18:30 99 05/09/19 18:15 98 05/09/19 18:00 98 05/09/19 17:45 98 05/09/19 17:30 98 05/09/19 17:15 100 05/09/19 17:00 100 05/09/19 16:45 100 05/09/19 16:30 100 05/09/19 16:20 05/09/19 16:15 100 05/09/19 16:13 05/09/19 16:00 100 05/09/19 06:17 199/88 99 Intake and Output 05/09/19 05/09/19 05/09/19 06:59 14:59 22:59 Intake Total 100 53 832.266 Output Total 3364 Balance 100 53 -2531.734 Intake: IV 100 53 702.0 Albumin Human 5% 250 ml 250 In Empty Bag 1 bag @ 250 mls/hr IVPB Q1HR PRN Rx#: [id number] Cardiac Output 110 Nitroglycerin-D5w Pmx 50 6.0 mg In Dextrose/Water 1 250ml.bag @ 5 MCG/MIN 1.5 mls/hr IV .Q24H [facility] Rx#: [id number] Potassium Chloride 20 meq 50 In Water For Injection 1 100ml.bag @ 50 mls/hr IVPB ONCE ONE Rx#: [id number] Pressure Bag 36 Sodium Chloride 0.9% 1, 200 000 ml @ 50 mls/hr IV . Q20H [facility] Rx#:[id number] ceFAZolin 2 gm In Sodium 50 Chloride 0.9% 50 ml @ 100 mls/hr IVPB ONCE ONE Rx# :[id number] Intake, IV Titration 130.266 Amount Clevidipine Butyrate 25 85.067 mg In Empty Bag 1 bag @ 1 MG/HR 2 mls/hr IV .Q24H [facility] Rx#:[id number] Propofol 1,000 mg In 45.199 Empty Bag 1 bag @ Titrate IV .Q0M [facility] Rx#: [id number] Output: Chest Tube Drainage 474 Left Lateral Chest 170 Mediastinal 304 Drainage 60 Left Calf 30 Right Calf 30 Urine 1030 Estimated Blood Loss 1800 Other: Voiding Method Indwelling Catheter Weight 83.7 kg ABP, PAP, CO, CI - Last 8 Hours Arterial Blood Pressure 119/49 Arterial Blood Pressure 133/50 Arterial Blood Pressure 125/48 Arterial Blood Pressure 133/53 Arterial Blood Pressure 148/55 Arterial Blood Pressure 164/62 Arterial Blood Pressure 157/59 Arterial Blood Pressure 145/60 Arterial Blood Pressure 132/54 Arterial Blood Pressure 129/55 Arterial Blood Pressure 128/52 Arterial Blood Pressure 109/47 Pulmonary Artery Pressure 34/21 Pulmonary Artery Pressure 36/22 Pulmonary Artery Pressure 35/22 Pulmonary Artery Pressure 39/23 Pulmonary Artery Pressure 39/23 Pulmonary Artery Pressure 40/24 Pulmonary Artery Pressure 39/23 Pulmonary Artery Pressure 34/18 Pulmonary Artery Pressure 32/18 Pulmonary Artery Pressure 32/18 Pulmonary Artery Pressure 28/18 Pulmonary Artery Pressure 31/17 Cardiac Output 6.4 Cardiac Output 5.8 Cardiac Output 5.1 Cardiac Output 5.2 Cardiac Output 4.9 Cardiac Index 3.2 Cardiac Index 2.9 Cardiac Index 2.5 Cardiac Index 2.6 Cardiac Index 2.4 General Appearance: Alert, cooperative, no distress, appears stated age. Neck HEENT: Supple, no lymphadenopathy, no thyroid enlargement, no carotid bruits. Lungs: Clear to auscultation without crackles or wheezes no rhonchi, no deformity. Chest Wall: Chest wall normal expansion with deep inspiration no tenderness and no deformity was found on exam, no costochondral pain or discomfort. Heart: Regular rate and rhythm, S1, S2 normal, no murmur, rub or gallop. Back: Symmetric, no curvature, ROM normal, no CVA tenderness. Abdomen: Soft, non-tender, bowel sounds active all four quadrants, no masses, no organomegaly. Extremities: Extremities normal, atraumatic, no cyanosis or edema. Pulses: 2+ and symmetric. Skin: Skin color, texture, tugor normal, no rashes or lesions. Neurologic: Alert oriented x3 cranial nerves II through XII intact, no motor deficit, no abnormal balance or gait. Results CBC & Chem 7: 05/10/19 04:00 05/10/19 04:00 Labs: Abnormal Lab Results - Last 24 Hours (Table) 05/02/19 05/09/19 05/09/19 Range/Units 08:45 08:34 10:50 WBC (3.8-10.6) k/uL RBC (4.30-5.90) m/uL Hgb (13.0-17.5) gm/dL Hct (39.0-53.0) % Plt Count (150-450) k/uL Neutrophils # (1.3-7.7) k/uL Lymphocytes # (1.0-4.8) k/uL Monocytes # (0-1.0) k/uL PT (9.0-12.0) sec INR (<1.2) APTT (22.0-30.0) sec ABG pH (7.35-7.45) ABG pO2 228 H 265 H (83-108) mmHg ABG HCO3 27 H 26 H (21-25) mmol/L ABG Total CO2 28 H 28 H (19-24) mmol/L ABG O2 Saturation 99.7 H 99.8 H (94-97) % ABG Hematocrit 32 L (34.0-46.0) % ABG Potassium 4.6 H (3.4-4.5) mmol/L ABG Ionized Calcium (4.5-5.3) mg/dL ABG Glucose 102 H (75-99) mg/dL Hemoglobin 11.3 L 10.4 L (13.0-17.5) gm/dL Chloride (98-107) mmol/L Creatinine (0.66-1.25) mg/dL Glucose (74-99) mg/dL POC Glucose (mg/dL) (75-99) mg/dL Calcium (8.4-10.2) mg/dL Magnesium (1.6-2.3) mg/dL Alkaline Phosphatase (38-126) U/L Total Protein (6.3-8.2) g/dL Albumin (3.5-5.0) g/dL Arterial Blood Potassium 4.6 H (3.4-4.5) mmol/L Arterial Blood Glucose 102 H (75-99) mg/dL Crossmatch See Detail 05/09/19 05/09/19 05/09/19 Range/Units 11:29 12:04 12:35 WBC (3.8-10.6) k/uL RBC (4.30-5.90) m/uL Hgb (13.0-17.5) gm/dL Hct (39.0-53.0) % Plt Count (150-450) k/uL Neutrophils # (1.3-7.7) k/uL Lymphocytes # (1.0-4.8) k/uL Monocytes # (0-1.0) k/uL PT (9.0-12.0) sec INR (<1.2) APTT (22.0-30.0) sec ABG pH (7.35-7.45) ABG pO2 >420 H 364 H 347 H (83-108) mmHg ABG HCO3 26 H 27 H (21-25) mmol/L ABG Total CO2 26 H 27 H 28 H (19-24) mmol/L ABG O2 Saturation 100.0 H 100.0 H 100.0 H (94-97) % ABG Hematocrit 27 L 25 L 25 L (34.0-46.0) % ABG Potassium 4.6 H (3.4-4.5) mmol/L ABG Ionized Calcium 4.2 L 4.2 L 4.3 L (4.5-5.3) mg/dL ABG Glucose 132 H 137 H (75-99) mg/dL Hemoglobin 8.9 L 8.2 L 8.3 L (13.0-17.5) gm/dL Chloride (98-107) mmol/L Creatinine (0.66-1.25) mg/dL Glucose (74-99) mg/dL POC Glucose (mg/dL) (75-99) mg/dL Calcium (8.4-10.2) mg/dL Magnesium (1.6-2.3) mg/dL Alkaline Phosphatase (38-126) U/L Total Protein (6.3-8.2) g/dL Albumin (3.5-5.0) g/dL Arterial Blood Potassium 4.6 H (3.4-4.5) mmol/L Arterial Blood Glucose 132 H 137 H (75-99) mg/dL Crossmatch 05/09/19 05/09/19 05/09/19 Range/Units 13:05 16:04 16:04 WBC (3.8-10.6) k/uL RBC 2.57 L (4.30-5.90) m/uL Hgb 8.1 L D (13.0-17.5) gm/dL Hct 23.8 L (39.0-53.0) % Plt Count 116 L D (150-450) k/uL Neutrophils # (1.3-7.7) k/uL Lymphocytes # 0.8 L (1.0-4.8) k/uL Monocytes # (0-1.0) k/uL PT (9.0-12.0) sec INR (<1.2) APTT (22.0-30.0) sec ABG pH (7.35-7.45) ABG pO2 342 H (83-108) mmHg ABG HCO3 26 H (21-25) mmol/L ABG Total CO2 28 H (19-24) mmol/L ABG O2 Saturation 99.9 H (94-97) % ABG Hematocrit 25 L (34.0-46.0) % ABG Potassium (3.4-4.5) mmol/L ABG Ionized Calcium 4.3 L (4.5-5.3) mg/dL ABG Glucose 131 H (75-99) mg/dL Hemoglobin 8.3 L (13.0-17.5) gm/dL Chloride 112 H (98-107) mmol/L Creatinine 0.63 L (0.66-1.25) mg/dL Glucose (74-99) mg/dL POC Glucose (mg/dL) (75-99) mg/dL Calcium 7.9 L (8.4-10.2) mg/dL Magnesium 2.6 H (1.6-2.3) mg/dL Alkaline Phosphatase 28 L (38-126) U/L Total Protein 4.5 L (6.3-8.2) g/dL Albumin 2.7 L (3.5-5.0) g/dL Arterial Blood Potassium (3.4-4.5) mmol/L Arterial Blood Glucose 131 H (75-99) mg/dL Crossmatch 05/09/19 05/09/19 05/09/19 Range/Units 16:04 16:04 16:22 WBC (3.8-10.6) k/uL RBC (4.30-5.90) m/uL Hgb (13.0-17.5) gm/dL Hct (39.0-53.0) % Plt Count (150-450) k/uL Neutrophils # (1.3-7.7) k/uL Lymphocytes # (1.0-4.8) k/uL Monocytes # (0-1.0) k/uL PT 14.5 H (9.0-12.0) sec INR 1.4 H (<1.2) APTT 38.0 H (22.0-30.0) sec ABG pH (7.35-7.45) ABG pO2 (83-108) mmHg ABG HCO3 (21-25) mmol/L ABG Total CO2 (19-24) mmol/L ABG O2 Saturation (94-97) % ABG Hematocrit (34.0-46.0) % ABG Potassium (3.4-4.5) mmol/L ABG Ionized Calcium (4.5-5.3) mg/dL ABG Glucose (75-99) mg/dL Hemoglobin (13.0-17.5) gm/dL Chloride (98-107) mmol/L Creatinine (0.66-1.25) mg/dL Glucose (74-99) mg/dL POC Glucose (mg/dL) 112 H 105 H (75-99) mg/dL Calcium (8.4-10.2) mg/dL Magnesium (1.6-2.3) mg/dL Alkaline Phosphatase (38-126) U/L Total Protein (6.3-8.2) g/dL Albumin (3.5-5.0) g/dL Arterial Blood Potassium (3.4-4.5) mmol/L Arterial Blood Glucose (75-99) mg/dL Crossmatch 05/09/19 05/09/19 05/09/19 Range/Units 16:25 17:03 18:02 WBC (3.8-10.6) k/uL RBC (4.30-5.90) m/uL Hgb (13.0-17.5) gm/dL Hct (39.0-53.0) % Plt Count (150-450) k/uL Neutrophils # (1.3-7.7) k/uL Lymphocytes # (1.0-4.8) k/uL Monocytes # (0-1.0) k/uL PT (9.0-12.0) sec INR (<1.2) APTT (22.0-30.0) sec ABG pH (7.35-7.45) ABG pO2 380 H (83-108) mmHg ABG HCO3 (21-25) mmol/L ABG Total CO2 25 H (19-24) mmol/L ABG O2 Saturation 99.8 H (94-97) % ABG Hematocrit (34.0-46.0) % ABG Potassium (3.4-4.5) mmol/L ABG Ionized Calcium (4.5-5.3) mg/dL ABG Glucose (75-99) mg/dL Hemoglobin (13.0-17.5) gm/dL Chloride (98-107) mmol/L Creatinine (0.66-1.25) mg/dL Glucose (74-99) mg/dL POC Glucose (mg/dL) 110 H 137 H (75-99) mg/dL Calcium (8.4-10.2) mg/dL Magnesium (1.6-2.3) mg/dL Alkaline Phosphatase (38-126) U/L Total Protein (6.3-8.2) g/dL Albumin (3.5-5.0) g/dL Arterial Blood Potassium (3.4-4.5) mmol/L Arterial Blood Glucose (75-99) mg/dL Crossmatch 05/09/19 05/09/19 05/09/19 Range/Units 18:23 18:50 20:16 WBC 15.9 H (3.8-10.6) k/uL RBC 2.62 L (4.30-5.90) m/uL Hgb 8.6 L (13.0-17.5) gm/dL Hct 24.4 L (39.0-53.0) % Plt Count 136 L (150-450) k/uL Neutrophils # 12.8 H (1.3-7.7) k/uL Lymphocytes # (1.0-4.8) k/uL Monocytes # 1.1 H (0-1.0) k/uL PT (9.0-12.0) sec INR (<1.2) APTT (22.0-30.0) sec ABG pH (7.35-7.45) ABG pO2 (83-108) mmHg ABG HCO3 (21-25) mmol/L ABG Total CO2 (19-24) mmol/L ABG O2 Saturation (94-97) % ABG Hematocrit (34.0-46.0) % ABG Potassium (3.4-4.5) mmol/L ABG Ionized Calcium (4.5-5.3) mg/dL ABG Glucose (75-99) mg/dL Hemoglobin (13.0-17.5) gm/dL Chloride (98-107) mmol/L Creatinine (0.66-1.25) mg/dL Glucose (74-99) mg/dL POC Glucose (mg/dL) 164 H 165 H (75-99) mg/dL Calcium (8.4-10.2) mg/dL Magnesium (1.6-2.3) mg/dL Alkaline Phosphatase (38-126) U/L Total Protein (6.3-8.2) g/dL Albumin (3.5-5.0) g/dL Arterial Blood Potassium (3.4-4.5) mmol/L Arterial Blood Glucose (75-99) mg/dL Crossmatch 05/09/19 05/09/19 05/09/19 Range/Units 20:38 21:11 21:12 WBC 16.5 H (3.8-10.6) k/uL RBC 2.48 L (4.30-5.90) m/uL Hgb 7.9 L (13.0-17.5) gm/dL Hct 23.2 L (39.0-53.0) % Plt Count 140 L (150-450) k/uL Neutrophils # (1.3-7.7) k/uL Lymphocytes # (1.0-4.8) k/uL Monocytes # (0-1.0) k/uL PT (9.0-12.0) sec INR (<1.2) APTT (22.0-30.0) sec ABG pH 7.34 L (7.35-7.45) ABG pO2 139 H (83-108) mmHg ABG HCO3 (21-25) mmol/L ABG Total CO2 (19-24) mmol/L ABG O2 Saturation 98.7 H (94-97) % ABG Hematocrit (34.0-46.0) % ABG Potassium (3.4-4.5) mmol/L ABG Ionized Calcium (4.5-5.3) mg/dL ABG Glucose (75-99) mg/dL Hemoglobin (13.0-17.5) gm/dL Chloride (98-107) mmol/L Creatinine (0.66-1.25) mg/dL Glucose (74-99) mg/dL POC Glucose (mg/dL) 154 H (75-99) mg/dL Calcium (8.4-10.2) mg/dL Magnesium (1.6-2.3) mg/dL Alkaline Phosphatase (38-126) U/L Total Protein (6.3-8.2) g/dL Albumin (3.5-5.0) g/dL Arterial Blood Potassium (3.4-4.5) mmol/L Arterial Blood Glucose (75-99) mg/dL Crossmatch 05/09/19 Range/Units 21:12 WBC (3.8-10.6) k/uL RBC (4.30-5.90) m/uL Hgb (13.0-17.5) gm/dL Hct (39.0-53.0) % Plt Count (150-450) k/uL Neutrophils # (1.3-7.7) k/uL Lymphocytes # (1.0-4.8) k/uL Monocytes # (0-1.0) k/uL PT (9.0-12.0) sec INR (<1.2) APTT (22.0-30.0) sec ABG pH (7.35-7.45) ABG pO2 (83-108) mmHg ABG HCO3 (21-25) mmol/L ABG Total CO2 (19-24) mmol/L ABG O2 Saturation (94-97) % ABG Hematocrit (34.0-46.0) % ABG Potassium (3.4-4.5) mmol/L ABG Ionized Calcium (4.5-5.3) mg/dL ABG Glucose (75-99) mg/dL Hemoglobin (13.0-17.5) gm/dL Chloride 110 H (98-107) mmol/L Creatinine 0.64 L (0.66-1.25) mg/dL Glucose 139 H (74-99) mg/dL POC Glucose (mg/dL) (75-99) mg/dL Calcium 7.8 L (8.4-10.2) mg/dL Magnesium (1.6-2.3) mg/dL Alkaline Phosphatase (38-126) U/L Total Protein (6.3-8.2) g/dL Albumin (3.5-5.0) g/dL Arterial Blood Potassium (3.4-4.5) mmol/L Arterial Blood Glucose (75-99) mg/dL Crossmatch Assessment and Plan Plan: 1 status post CAB vessel coronary artery bypass graft done patient is on mechanical ventilation with 2 chest tube he is on less support with vasopressor and doing well. 2 advanced CAD: With positive stress test and heart cath, post surgery. 3 A. fib with RVR: Patient pulse rates under control currently he will be on anticoagulation afterward, was on Eliquis before Surgery. He might have procedure done by removing the appendage area of the atrium to clear any possibility for thrombus circulation in the future with A. fib. 4 hyperlipidemia: Has been on atorvastatin 80 mg a day continue medication. 5 hypertension: On metoprolol and can benefit from small dose of CHRIS inhibitor. 6 GERD/GI prophylaxis: Patient will be on pantoprazole. 7 BPH: Watch for any urinary retention. 8 DVT prophylaxis: Patient is on heparin 5000 units subcutaneous every 8 hours. CODE STATUS: Full code. thank you very much for consult psych can be any further help to please let me know
--- NOTE | 2019-05-10 13:58 | P.PN ---
Subjective Progress Note Date: 05/10/19 74-year-old male one of my office patient with past medical history of CAD, A. fib, hypertension, hyperlipidemia and previous history of CVA who had the history of pacemaker as well developed to have A. fib with RVR was referred to cardiology and end up going for heart catheter for positive stress test came back with significant 3 vessel disease. Patient initially refused to go for surgery and then was referred to cardiothoracic surgeon in [facility] and ended up schedule elective CABG on 05/09/[address] Pearson. Patient was seen pulmonary had PFT and other testing and prepare for surgery. Patient had 5 vessel bypass surgery successfully was on mechanical ventilation had 2 chest tube otherwise stable was transferred to the ICU. 05/10: Patient has been successfully extubated. He is found sitting in recliner and appears to be comfortable. Patient has not required any vasopressors. He is using his incentive spirometry. Chest tubes are in place. He is on insulin drip at 2.5 units per hour. Patient was a bit groggy this morning and primary discontinued Max. Patient is awake and alert at the time of this evaluation. He has been afebrile, heart rate 60s, blood pressure 159/52 and pulse ox 97% on room air. Hemoglobin 7.3 with white count 15.0 and platelet count 132. Creati nine 0.62. Blood sugars running between 134-163. Patient has been evaluated by physical therapy with recommendations for inpatient rehab. Review of Systems CONSTITUTIONAL: Well-developed no acute respiratory distress. EYES: No icterus sclerae, no conjunctivitis. EARS, NOSE, MOUTH, THROAT, and FACE: No sore throat, lymphadenopathy, carotid bruits or deformity. RESPIRATORY: Mild shortness of breath with no cough or wheezes. CARDIOVASCULAR: Reports chest discomfort. GASTROINTESTINAL: No Abd pain, Nausea or vomiting, no Diarrhea or constipation, No GI Bleed, no distention or masses. GENITOURINARY: Negative for Hematuria or UTI, no kidney stones. INTEGUMENT/BREAST: Negative for any muscular injury with mild osteoarthritis.. HEMATOLOGIC/LYMPHATIC: Negative for bleed or purpura. MUSCULOSKELTAL: Negative for Myalgia or arthralgia. NEURLOGICAL: No LOC, Sz or syncope, blurred vision dizziness or abnormality.. BEHAVIORAL/PSYCH: Negative. ENDOCRINE: Negative. Objective - Vital Signs Vital signs: Vital Signs Temp 97.5 F L 05/10/19 12:00 Pulse 69 05/10/19 12:00 Resp 18 05/10/19 12:00 BP 145/71 05/10/19 12:00 Pulse Ox 97 05/10/19 12:00 Intake & Output 05/09/19 05/10/19 05/10/19 18:59 06:59 18:59 Intake Total 857.030 5977.945 408.158 Output Total 3140 1339 607 Balance -2414.233 75.945 -198.842 Weight 88.4 kg 88.4 kg Intake: IV 674.5 1296.5 289 Albumin Human 5% 250 ml 250 250 In Empty Bag 1 bag @ 250 mls/hr IVPB Q1HR PRN Rx#: [id number] Cardiac Output 90 260 Nitroglycerin-D5w Pmx 50 4.5 19.5 0 mg In Dextrose/Water 1 250ml.bag @ 5 MCG/MIN 1.5 mls/hr IV .Q24H ÁNGEL Rx#: [id number] Potassium Chloride 20 meq 50 In Water For Injection 1 100ml.bag @ 50 mls/hr IVPB ONCE ONE Rx#: [id number] Pressure Bag 27 117 39 Sodium Chloride 0.9% 1, 150 550 250 000 ml @ 50 mls/hr IV . Q20H ÁNGEL Rx#:[id number] ceFAZolin 2 gm In Sodium 50 100 Chloride 0.9% 50 ml @ 100 mls/hr IVPB ONCE ONE Rx# :[id number] Intake, IV Titration 51.267 118.445 29.158 Amount Clevidipine Butyrate 25 6.068 105.399 mg In Empty Bag 1 bag @ 1 MG/HR 2 mls/hr IV .Q24H ÁNGEL Rx#:[id number] Insulin Regular 100 unit 13.046 8.383 In Sodium Chloride 0.9% 100 ml @ Per Protocol IV .Q0M ÁNGEL Rx#:[id number] Nitroglycerin-D5w Pmx 50 20.775 mg In Dextrose/Water 1 250ml.bag @ 5 MCG/MIN 1.5 mls/hr IV .Q24H ÁNGEL Rx#: [id number] Propofol 1,000 mg In 45.199 Empty Bag 1 bag @ Titrate IV .Q0M ÁNGEL Rx#: [id number] Oral 90 Output: Chest Tube Drainage 450 414 80 Left Lateral Chest 166 184 50 Mediastinal 284 230 30 Drainage 60 175 Left Calf 30 55 Right Calf 30 120 Urine 830 750 527 Estimated Blood Loss 1800 Other: Voiding Method Indwelling Catheter Indwelling Catheter Indwelling Catheter ABP, PAP, CO, CI - Last Documented Arterial Blood Pressure 159/52 Pulmonary Artery Pressure 23/4 Cardiac Output 5 Cardiac Index 2.5 - Exam General Appearance: Alert, cooperative, no distress, appears stated age. Patient resting in recliner. Neck HEENT: Supple, no lymphadenopathy, no thyroid enlargement, no carotid bruits. Lungs: Clear to auscultation without crackles or wheezes no rhonchi, no deformity. Chest Wall: Chest wall normal expansion with deep inspiration no tenderness and no deformity was found on exam, no costochondral pain or discomfort. Heart: Regular rate and rhythm, S1, S2 normal, no murmur, rub or gallop. Back: Symmetric, no curvature, ROM normal, no CVA tenderness. Abdomen: Soft, non-tender, bowel sounds active all four quadrants, no masses, no organomegaly. Extremities: Extremities normal, atraumatic, no cyanosis or edema. Pulses: 2+ and symmetric. Skin: Skin color, texture, tugor normal, no rashes or lesions. Neurologic: Alert oriented x3 cranial nerves II through XII intact, no motor deficit, no abnormal balance or gait. - Labs CBC & Chem 7: 05/10/19 04:00 05/10/19 04:00 Labs: Abnormal Lab Results - Last 24 Hours (Table) 05/02/19 05/09/19 05/09/19 Range/Units 08:45 08:34 10:50 WBC (3.8-10.6) k/uL RBC (4.30-5.90) m/uL Hgb (13.0-17.5) gm/dL Hct (39.0-53.0) % Plt Count (150-450) k/uL Neutrophils # (1.3-7.7) k/uL Lymphocytes # (1.0-4.8) k/uL Monocytes # (0-1.0) k/uL PT (9.0-12.0) sec INR (<1.2) APTT (22.0-30.0) sec ABG pH (7.35-7.45) ABG pO2 228 H 265 H (83-108) mmHg ABG HCO3 27 H 26 H (21-25) mmol/L ABG Total CO2 28 H 28 H (19-24) mmol/L ABG O2 Saturation 99.7 H 99.8 H (94-97) % ABG Hematocrit 32 L (34.0-46.0) % ABG Potassium 4.6 H (3.4-4.5) mmol/L ABG Ionized Calcium (4.5-5.3) mg/dL ABG Glucose 102 H (75-99) mg/dL Hemoglobin 11.3 L 10.4 L (13.0-17.5) gm/dL Chloride (98-107) mmol/L Creatinine (0.66-1.25) mg/dL Glucose (74-99) mg/dL POC Glucose (mg/dL) (75-99) mg/dL Calcium (8.4-10.2) mg/dL Magnesium (1.6-2.3) mg/dL Alkaline Phosphatase (38-126) U/L Total Protein (6.3-8.2) g/dL Albumin (3.5-5.0) g/dL Arterial Blood Potassium 4.6 H (3.4-4.5) mmol/L Arterial Blood Glucose 102 H (75-99) mg/dL Crossmatch See Detail 05/09/19 05/09/19 05/09/19 Range/Units 11:29 12:04 12:35 WBC (3.8-10.6) k/uL RBC (4.30-5.90) m/uL Hgb (13.0-17.5) gm/dL Hct (39.0-53.0) % Plt Count (150-450) k/uL Neutrophils # (1.3-7.7) k/uL Lymphocytes # (1.0-4.8) k/uL Monocytes # (0-1.0) k/uL PT (9.0-12.0) sec INR (<1.2) APTT (22.0-30.0) sec ABG pH (7.35-7.45) ABG pO2 >420 H 364 H 347 H (83-108) mmHg ABG HCO3 26 H 27 H (21-25) mmol/L ABG Total CO2 26 H 27 H 28 H (19-24) mmol/L ABG O2 Saturation 100.0 H 100.0 H 100.0 H (94-97) % ABG Hematocrit 27 L 25 L 25 L (34.0-46.0) % ABG Potassium 4.6 H (3.4-4.5) mmol/L ABG Ionized Calcium 4.2 L 4.2 L 4.3 L (4.5-5.3) mg/dL ABG Glucose 132 H 137 H (75-99) mg/dL Hemoglobin 8.9 L 8.2 L 8.3 L (13.0-17.5) gm/dL Chloride (98-107) mmol/L Creatinine (0.66-1.25) mg/dL Glucose (74-99) mg/dL POC Glucose (mg/dL) (75-99) mg/dL Calcium (8.4-10.2) mg/dL Magnesium (1.6-2.3) mg/dL Alkaline Phosphatase (38-126) U/L Total Protein (6.3-8.2) g/dL Albumin (3.5-5.0) g/dL Arterial Blood Potassium 4.6 H (3.4-4.5) mmol/L Arterial Blood Glucose 132 H 137 H (75-99) mg/dL Crossmatch 05/09/19 05/09/19 05/09/19 Range/Units 13:05 16:04 16:04 WBC (3.8-10.6) k/uL RBC 2.57 L (4.30-5.90) m/uL Hgb 8.1 L D (13.0-17.5) gm/dL Hct 23.8 L (39.0-53.0) % Plt Count 116 L D (150-450) k/uL Neutrophils # (1.3-7.7) k/uL Lymphocytes # 0.8 L (1.0-4.8) k/uL Monocytes # (0-1.0) k/uL PT (9.0-12.0) sec INR (<1.2) APTT (22.0-30.0) sec ABG pH (7.35-7.45) ABG pO2 342 H (83-108) mmHg ABG HCO3 26 H (21-25) mmol/L ABG Total CO2 28 H (19-24) mmol/L ABG O2 Saturation 99.9 H (94-97) % ABG Hematocrit 25 L (34.0-46.0) % ABG Potassium (3.4-4.5) mmol/L ABG Ionized Calcium 4.3 L (4.5-5.3) mg/dL ABG Glucose 131 H (75-99) mg/dL Hemoglobin 8.3 L (13.0-17.5) gm/dL Chloride 112 H (98-107) mmol/L Creatinine 0.63 L (0.66-1.25) mg/dL Glucose (74-99) mg/dL POC Glucose (mg/dL) (75-99) mg/dL Calcium 7.9 L (8.4-10.2) mg/dL Magnesium 2.6 H (1.6-2.3) mg/dL Alkaline Phosphatase 28 L (38-126) U/L Total Protein 4.5 L (6.3-8.2) g/dL Albumin 2.7 L (3.5-5.0) g/dL Arterial Blood Potassium (3.4-4.5) mmol/L Arterial Blood Glucose 131 H (75-99) mg/dL Crossmatch 05/09/19 05/09/19 05/09/19 Range/Units 16:04 16:04 16:22 WBC (3.8-10.6) k/uL RBC (4.30-5.90) m/uL Hgb (13.0-17.5) gm/dL Hct (39.0-53.0) % Plt Count (150-450) k/uL Neutrophils # (1.3-7.7) k/uL Lymphocytes # (1.0-4.8) k/uL Monocytes # (0-1.0) k/uL PT 14.5 H (9.0-12.0) sec INR 1.4 H (<1.2) APTT 38.0 H (22.0-30.0) sec ABG pH (7.35-7.45) ABG pO2 (83-108) mmHg ABG HCO3 (21-25) mmol/L ABG Total CO2 (19-24) mmol/L ABG O2 Saturation (94-97) % ABG Hematocrit (34.0-46.0) % ABG Potassium (3.4-4.5) mmol/L ABG Ionized Calcium (4.5-5.3) mg/dL ABG Glucose (75-99) mg/dL Hemoglobin (13.0-17.5) gm/dL Chloride (98-107) mmol/L Creatinine (0.66-1.25) mg/dL Glucose (74-99) mg/dL POC Glucose (mg/dL) 112 H 105 H (75-99) mg/dL Calcium (8.4-10.2) mg/dL Magnesium (1.6-2.3) mg/dL Alkaline Phosphatase (38-126) U/L Total Protein (6.3-8.2) g/dL Albumin (3.5-5.0) g/dL Arterial Blood Potassium (3.4-4.5) mmol/L Arterial Blood Glucose (75-99) mg/dL Crossmatch 05/09/19 05/09/19 05/09/19 Range/Units 16:25 17:03 18:02 WBC (3.8-10.6) k/uL RBC (4.30-5.90) m/uL Hgb (13.0-17.5) gm/dL Hct (39.0-53.0) % Plt Count (150-450) k/uL Neutrophils # (1.3-7.7) k/uL Lymphocytes # (1.0-4.8) k/uL Monocytes # (0-1.0) k/uL PT (9.0-12.0) sec INR (<1.2) APTT (22.0-30.0) sec ABG pH (7.35-7.45) ABG pO2 380 H (83-108) mmHg ABG HCO3 (21-25) mmol/L ABG Total CO2 25 H (19-24) mmol/L ABG O2 Saturation 99.8 H (94-97) % ABG Hematocrit (34.0-46.0) % ABG Potassium (3.4-4.5) mmol/L ABG Ionized Calcium (4.5-5.3) mg/dL ABG Glucose (75-99) mg/dL Hemoglobin (13.0-17.5) gm/dL Chloride (98-107) mmol/L Creatinine (0.66-1.25) mg/dL Glucose (74-99) mg/dL POC Glucose (mg/dL) 110 H 137 H (75-99) mg/dL Calcium (8.4-10.2) mg/dL Magnesium (1.6-2.3) mg/dL Alkaline Phosphatase (38-126) U/L Total Protein (6.3-8.2) g/dL Albumin (3.5-5.0) g/dL Arterial Blood Potassium (3.4-4.5) mmol/L Arterial Blood Glucose (75-99) mg/dL Crossmatch 05/09/19 05/09/19 05/09/19 Range/Units 18:23 18:50 20:16 WBC 15.9 H (3.8-10.6) k/uL RBC 2.62 L (4.30-5.90) m/uL Hgb 8.6 L (13.0-17.5) gm/dL Hct 24.4 L (39.0-53.0) % Plt Count 136 L (150-450) k/uL Neutrophils # 12.8 H (1.3-7.7) k/uL Lymphocytes # (1.0-4.8) k/uL Monocytes # 1.1 H (0-1.0) k/uL PT (9.0-12.0) sec INR (<1.2) APTT (22.0-30.0) sec ABG pH (7.35-7.45) ABG pO2 (83-108) mmHg ABG HCO3 (21-25) mmol/L ABG Total CO2 (19-24) mmol/L ABG O2 Saturation (94-97) % ABG Hematocrit (34.0-46.0) % ABG Potassium (3.4-4.5) mmol/L ABG Ionized Calcium (4.5-5.3) mg/dL ABG Glucose (75-99) mg/dL Hemoglobin (13.0-17.5) gm/dL Chloride (98-107) mmol/L Creatinine (0.66-1.25) mg/dL Glucose (74-99) mg/dL POC Glucose (mg/dL) 164 H 165 H (75-99) mg/dL Calcium (8.4-10.2) mg/dL Magnesium (1.6-2.3) mg/dL Alkaline Phosphatase (38-126) U/L Total Protein (6.3-8.2) g/dL Albumin (3.5-5.0) g/dL Arterial Blood Potassium (3.4-4.5) mmol/L Arterial Blood Glucose (75-99) mg/dL Crossmatch 05/09/19 05/09/19 05/09/19 Range/Units 20:38 21:11 21:12 WBC 16.5 H (3.8-10.6) k/uL RBC 2.48 L (4.30-5.90) m/uL Hgb 7.9 L (13.0-17.5) gm/dL Hct 23.2 L (39.0-53.0) % Plt Count 140 L (150-450) k/uL Neutrophils # (1.3-7.7) k/uL Lymphocytes # (1.0-4.8) k/uL Monocytes # (0-1.0) k/uL PT (9.0-12.0) sec INR (<1.2) APTT (22.0-30.0) sec ABG pH 7.34 L (7.35-7.45) ABG pO2 139 H (83-108) mmHg ABG HCO3 (21-25) mmol/L ABG Total CO2 (19-24) mmol/L ABG O2 Saturation 98.7 H (94-97) % ABG Hematocrit (34.0-46.0) % ABG Potassium (3.4-4.5) mmol/L ABG Ionized Calcium (4.5-5.3) mg/dL ABG Glucose (75-99) mg/dL Hemoglobin (13.0-17.5) gm/dL Chloride (98-107) mmol/L Creatinine (0.66-1.25) mg/dL Glucose (74-99) mg/dL POC Glucose (mg/dL) 154 H (75-99) mg/dL Calcium (8.4-10.2) mg/dL Magnesium (1.6-2.3) mg/dL Alkaline Phosphatase (38-126) U/L Total Protein (6.3-8.2) g/dL Albumin (3.5-5.0) g/dL Arterial Blood Potassium (3.4-4.5) mmol/L Arterial Blood Glucose (75-99) mg/dL Crossmatch 05/09/19 05/09/19 05/09/19 Range/Units 21:12 21:57 23:50 WBC (3.8-10.6) k/uL RBC (4.30-5.90) m/uL Hgb (13.0-17.5) gm/dL Hct (39.0-53.0) % Plt Count (150-450) k/uL Neutrophils # (1.3-7.7) k/uL Lymphocytes # (1.0-4.8) k/uL Monocytes # (0-1.0) k/uL PT (9.0-12.0) sec INR (<1.2) APTT (22.0-30.0) sec ABG pH (7.35-7.45) ABG pO2 (83-108) mmHg ABG HCO3 (21-25) mmol/L ABG Total CO2 (19-24) mmol/L ABG O2 Saturation (94-97) % ABG Hematocrit (34.0-46.0) % ABG Potassium (3.4-4.5) mmol/L ABG Ionized Calcium (4.5-5.3) mg/dL ABG Glucose (75-99) mg/dL Hemoglobin (13.0-17.5) gm/dL Chloride 110 H (98-107) mmol/L Creatinine 0.64 L (0.66-1.25) mg/dL Glucose 139 H (74-99) mg/dL POC Glucose (mg/dL) 138 H 130 H (75-99) mg/dL Calcium 7.8 L (8.4-10.2) mg/dL Magnesium (1.6-2.3) mg/dL Alkaline Phosphatase (38-126) U/L Total Protein (6.3-8.2) g/dL Albumin (3.5-5.0) g/dL Arterial Blood Potassium (3.4-4.5) mmol/L Arterial Blood Glucose (75-99) mg/dL Crossmatch 05/10/19 05/10/19 05/10/19 Range/Units 01:23 03:04 04:00 WBC 15.0 H (3.8-10.6) k/uL RBC 2.35 L (4.30-5.90) m/uL Hgb 7.3 L (13.0-17.5) gm/dL Hct 21.7 L (39.0-53.0) % Plt Count 132 L (150-450) k/uL Neutrophils # 13.1 H (1.3-7.7) k/uL Lymphocytes # (1.0-4.8) k/uL Monocytes # (0-1.0) k/uL PT (9.0-12.0) sec INR (<1.2) APTT (22.0-30.0) sec ABG pH (7.35-7.45) ABG pO2 (83-108) mmHg ABG HCO3 (21-25) mmol/L ABG Total CO2 (19-24) mmol/L ABG O2 Saturation (94-97) % ABG Hematocrit (34.0-46.0) % ABG Potassium (3.4-4.5) mmol/L ABG Ionized Calcium (4.5-5.3) mg/dL ABG Glucose (75-99) mg/dL Hemoglobin (13.0-17.5) gm/dL Chloride (98-107) mmol/L Creatinine (0.66-1.25) mg/dL Glucose (74-99) mg/dL POC Glucose (mg/dL) 132 H 134 H (75-99) mg/dL Calcium (8.4-10.2) mg/dL Magnesium (1.6-2.3) mg/dL Alkaline Phosphatase (38-126) U/L Total Protein (6.3-8.2) g/dL Albumin (3.5-5.0) g/dL Arterial Blood Potassium (3.4-4.5) mmol/L Arterial Blood Glucose (75-99) mg/dL Crossmatch 05/10/19 05/10/19 05/10/19 Range/Units 04:00 04:04 06:19 WBC (3.8-10.6) k/uL RBC (4.30-5.90) m/uL Hgb (13.0-17.5) gm/dL Hct (39.0-53.0) % Plt Count (150-450) k/uL Neutrophils # (1.3-7.7) k/uL Lymphocytes # (1.0-4.8) k/uL Monocytes # (0-1.0) k/uL PT (9.0-12.0) sec INR (<1.2) APTT (22.0-30.0) sec ABG pH (7.35-7.45) ABG pO2 (83-108) mmHg ABG HCO3 (21-25) mmol/L ABG Total CO2 (19-24) mmol/L ABG O2 Saturation (94-97) % ABG Hematocrit (34.0-46.0) % ABG Potassium (3.4-4.5) mmol/L ABG Ionized Calcium (4.5-5.3) mg/dL ABG Glucose (75-99) mg/dL Hemoglobin (13.0-17.5) gm/dL Chloride 111 H (98-107) mmol/L Creatinine 0.62 L (0.66-1.25) mg/dL Glucose 133 H (74-99) mg/dL POC Glucose (mg/dL) 134 H 156 H (75-99) mg/dL Calcium 8.0 L (8.4-10.2) mg/dL Magnesium (1.6-2.3) mg/dL Alkaline Phosphatase 30 L (38-126) U/L Total Protein 4.9 L (6.3-8.2) g/dL Albumin 3.0 L (3.5-5.0) g/dL Arterial Blood Potassium (3.4-4.5) mmol/L Arterial Blood Glucose (75-99) mg/dL Crossmatch 05/10/19 05/10/19 05/10/19 Range/Units 08:28 10:20 11:51 WBC (3.8-10.6) k/uL RBC (4.30-5.90) m/uL Hgb (13.0-17.5) gm/dL Hct (39.0-53.0) % Plt Count (150-450) k/uL Neutrophils # (1.3-7.7) k/uL Lymphocytes # (1.0-4.8) k/uL Monocytes # (0-1.0) k/uL PT (9.0-12.0) sec INR (<1.2) APTT (22.0-30.0) sec ABG pH (7.35-7.45) ABG pO2 (83-108) mmHg ABG HCO3 (21-25) mmol/L ABG Total CO2 (19-24) mmol/L ABG O2 Saturation (94-97) % ABG Hematocrit (34.0-46.0) % ABG Potassium (3.4-4.5) mmol/L ABG Ionized Calcium (4.5-5.3) mg/dL ABG Glucose (75-99) mg/dL Hemoglobin (13.0-17.5) gm/dL Chloride (98-107) mmol/L Creatinine (0.66-1.25) mg/dL Glucose (74-99) mg/dL POC Glucose (mg/dL) 146 H 151 H 163 H (75-99) mg/dL Calcium (8.4-10.2) mg/dL Magnesium (1.6-2.3) mg/dL Alkaline Phosphatase (38-126) U/L Total Protein (6.3-8.2) g/dL Albumin (3.5-5.0) g/dL Arterial Blood Potassium (3.4-4.5) mmol/L Arterial Blood Glucose (75-99) mg/dL Crossmatch Assessment and Plan Plan: 1 status post CAB vessel coronary artery bypass graft, status post extubation. Continue aspirin, Lipitor, Lopressor 25 mg twice daily 2 advanced CAD: With positive stress test and heart cath, post surgery. 3 A. fib with RVR, chronic atrial fibrillation: Patient pulse rates under control currently he will be on anticoagulation afterward, was on Eliquis before Surgery. He might have procedure done by removing the appendage area of the atrium to clear any possibility for thrombus circulation in the future with A. fib. 4 hyperlipidemia: Has been on atorvastatin 80 mg a day continue medication. 5 hypertension: On metoprolol and can benefit from small dose of CHRIS inhibitor. 6 GERD/GI prophylaxis: Patient will be on pantoprazole. 7 BPH: Watch for any urinary retention. 8 DVT prophylaxis: Patient is on heparin 5000 units subcutaneous every 8 hours. CODE STATUS: Full code. Discharge plan: Most likely inpatient rehab Impression and plan of care have been directed as dictated by the signing physician. Dee Hatfield nurse practitioner acting as scribe for signing physician.
[2019-05-10 14:01] LABS: Glucose,Whole Blood 134 mg/dL (75-99)
[2019-05-10] MEDS: KETOROLAC 30 MG/ML 1 ML VIAL IVP SCH ×2 (15:54→18:57)
[2019-05-10 16:01] LABS: Glucose,Whole Blood 135 mg/dL (75-99)
[2019-05-10] MEDS: SODIUM CHLORIDE 0.9% 1,000 ML IV SCH (16:03)
[2019-05-10 18:19] LABS: Glucose,Whole Blood 151 mg/dL (75-99)
[2019-05-10 20:13] LABS: Glucose,Whole Blood 126 mg/dL (75-99)
[2019-05-10] MEDS: SENNOSIDES-DOCUSATE SODIUM 1 EACH TAB PO SCH (20:17)
[2019-05-10] MEDS ORDERED: QUEtiapine 25 MG TAB PO STA (20:31)
[2019-05-10 22:20] LABS: Glucose,Whole Blood 176 mg/dL (75-99)
[2019-05-11 00:04] LABS: Glucose,Whole Blood 141 mg/dL (75-99)
[2019-05-11] MEDS: KETOROLAC 30 MG/ML 1 ML VIAL IVP SCH ×4 (01:58→23:54)
[2019-05-11 02:06] LABS: Glucose,Whole Blood 147 mg/dL (75-99)
[2019-05-11 04:02] LABS: Glucose,Whole Blood 135 mg/dL (75-99)
[2019-05-11 04:43] LABS: Basophils % (A) 0 %; Eosinophils % (A) 0 %; Lymphocytes # (A) 1.9 k/uL (1.0-4.8); Lymphocytes % (A) 16 %; MCH 31.4 pg (25.0-35.0); MCHC 34.2 g/dL (31.0-37.0); MCV 91.9 fL (80.0-100.0); Mean Platelet Volume 7.5; Monocytes # (A) 0.8 k/uL (0-1.0); Monocytes % (A) 7 %; Neutrophils # (A) 9.1 k/uL (1.3-7.7); Neutrophils % (A) 75 %; Platelet Count 132 k/uL (150-450); RBC 2.03 m/uL (4.30-5.90); RDW 14.2 % (11.5-15.5); WBC 12.1 k/uL (3.8-10.6)
[2019-05-11 04:45] LABS: Ionized Calcium 4.8 mg/dL (4.5-5.3)
[2019-05-11 04:47] LABS: HCT 18.6 % (39.0-53.0); HGB 6.4 gm/dL (13.0-17.5)
[2019-05-11 04:49] LABS: ALT 31 U/L (21-72); AST 37 U/L (17-59); African American GFR (CKD) >90 (>60 ml/min/1.73 sqM); Albumin 2.9 g/dL (3.5-5.0); Alkaline Phosphatase 31 U/L (38-126); Anion Gap 3 mmol/L; Blood Urea Nitrogen 20 mg/dL (9-20); Calcium 8.3 mg/dL (8.4-10.2); Carbon Dioxide 25 mmol/L (22-30); Chloride 107 mmol/L (98-107); Glucose 122 mg/dL (74-99); Non-African American GFR(CKD) >90 (>60 ml/min/1.73 sqM); Potassium 4.5 mmol/L (3.5-5.1); Sodium 135 mmol/L (137-145); Total Bilirubin 0.8 mg/dL (0.2-1.3)
[2019-05-11 06:00] LABS: Glucose,Whole Blood 140 mg/dL (75-99)
[2019-05-11] MEDS: PANTOPRAZOLE 40 MG TABLET PO SCH (06:30)
[2019-05-11] MEDS: SODIUM CHLORIDE 0.9% 1,000 ML IV SCH (06:31)
[2019-05-11 07:52] LABS: Glucose,Whole Blood 141 mg/dL (75-99)
[2019-05-11] MEDS: METOPROLOL TARTRATE 25 MG TAB PO SCH ×2 (08:06→20:31)
[2019-05-11] MEDS: CLOPIDOGREL 75 MG TAB PO SCH (08:06)
[2019-05-11] MEDS: ASPIRIN 325 MG TAB PO SCH (08:06)
[2019-05-11] MEDS: ATORVASTATIN 40 MG TAB PO SCH (08:06)
[2019-05-11] MEDS: HEPARIN SODIUM,PORCINE 5,000 UNIT/ML 1 ML VIAL SQ SCH ×3 (08:07→23:54)
[2019-05-11] MEDS: IPRATROPIUM-ALBUTEROL 3 ML NEB INHALATION SCH ×4 (08:36→20:11)
--- NOTE | 2019-05-11 09:09 | P.PN ---
Subjective Progress Note Date: 05/11/19 Principal diagnosis: Triple-vessel coronary artery disease with left main disease, mild left ventricular dysfunction, mild to moderate mitral valve regurgitation, chronic atrial fibrillation on Ellik was for anticoagulation, status post dual-chamber pacemaker, history of TIA. History of hypertension, hyperlipidemia, previous tobacco dependence, daily marijuana use, syncope 5 years ago, and family history of premature coronary artery disease and alpha-1 antitrypsin deficiency. POD #2 quintuple coronary artery bypass grafting using the left internal mammary artery to the ramus intermedius artery sequentially then to the left anterior descending artery, reverse saphenous vein graft from the aorta to the obtuse marginal artery, reverse saphenous vein graft from the aorta to the left ventricular branch of the right coronary artery, reverse saphenous vein graft from the previous graft to the posterior descending artery in a Y fashion. Exclusion of the left atrial appendage using a 45 mm AtriClip. Intraoperative graft flow measurements using the [place] [employer] system. Endoscopic harvesting of the bilateral greater saphenous vein except below the knee on the right side. Intraoperative transesophageal echocardiogram and epi-aortic scanning. Postoperative acute blood loss anemia, expected secondary to cardiopulmonary bypass and hemodilution The patient's currently sitting up in a recliner in the intensive care unit in no acute distress. Remains intermittently confused and fidgety. Denies any pain, shortness of breath. Mediastinal and left pleural chest tubes, Cordis, arterial line remain. Hemodynamically stable on no inotropes or pressors. Able to stand with assist, unable to ambulate any significant distance last night. Patient did pull out his own IV last night. 1:1 sitter at bedside. Hemoglobin 6.4 this morning, currently receiving 1 unit packed red blood cells. Objective - Vital Signs Vital signs: Vital Signs Temp 98.5 F 05/11/19 08:04 Pulse 70 05/11/19 08:04 Resp 18 05/11/19 08:04 BP 145/60 05/11/19 08:04 Pulse Ox 98 05/11/19 08:04 Intake & Output 05/10/19 05/11/19 05/11/19 18:59 06:59 18:59 Intake Total 886.240 5185.723 53 Output Total 605 815 30 Balance 276.581 320.723 23 Weight 88.4 kg 87.7 kg Intake: IV 625 639 53 Nitroglycerin-D5w Pmx 50 0 mg In Dextrose/Water 1 250ml.bag @ 5 MCG/MIN 1.5 mls/hr IV .Q24H ÁNGEL Rx#: [id number] Pressure Bag 75 39 3 Sodium Chloride 0.9% 1, 550 600 50 000 ml @ 50 mls/hr IV . Q20H ÁNGEL Rx#:[id number] Intake, IV Titration 46.581 16.723 Amount Insulin Regular 100 unit 25.806 16.723 In Sodium Chloride 0.9% 100 ml @ Per Protocol IV .Q0M ÁNGEL Rx#:[id number] Nitroglycerin-D5w Pmx 50 20.775 mg In Dextrose/Water 1 250ml.bag @ 5 MCG/MIN 1.5 mls/hr IV .Q24H ÁNGEL Rx#: [id number] Oral 210 480 Blood Product 0 Rc Irr Cpda1 Unit 0 [id number] Output: Chest Tube Drainage 180 340 Left Lateral Chest 70 190 Mediastinal 110 150 Drainage 70 45 Left Calf 50 45 Right Calf 20 0 Urine 355 430 30 Other: Voiding Method Indwelling Catheter Indwelling Catheter Indwelling Catheter ABP, PAP, CO, CI - Last Documented Arterial Blood Pressure 135/53 Pulmonary Artery Pressure 23/4 Cardiac Output 5 Cardiac Index 2.5 - Constitutional General appearance: Present: cooperative, no acute distress - Respiratory Details: Lungs sounds diminished bilaterally. Respirations even, nonlabored. Currently on room air with oxygen saturation 97%. Able to achieve 1750 mL on his incentive spirometry. Strong cough. Mediastinal chest tube present to continuous wall suction, 150 mL thin serosanguineous drainage overnight, 300 mL in the last 24 hours. Left pleural chest tube to continuous wall suction, 70 mL thin serosanguineous drainage overnight, 150 mL in the last 24 hours. No air leaks present. - Cardiovascular Details: S1, S2 present. Irregular rate and rhythm, atrial fibrillation on telemetry. Sternum stable. Ventricular epicardial wire present, connected to generator, generator turned off. Palpable peripheral pulses bilaterally. Trace generalized edema present. No calf pain or tenderness noted. Right internal jugular Cordis, left radial arterial line present. Heart hugger in place with patient demonstrating appropriate use with encouragement. Antiembolism stockings, SCDs present. - Gastrointestinal Gastrointestinal Comment(s): Abdomen soft, nontender, nondistended. Active bowel sounds present 4 quadrants. Tolerating diet. - Genitourinary Genitourinary Comment(s): Renae present draining clear, yellow urine. Output 15-40 mL/h overnight - Integumentary Integumentary Comment(s): Skin is warm and dry with evidence of good perfusion. Anterior chest incision well approximated and covered with dry intact dressing. Bilateral lower extremity EVH sites well approximated, YOHANA drains present with minimal serosanguineous drainage. - Neurologic Neurologic: Present: CNII-XII intact - Musculoskeletal Musculoskeletal: Present: generalized weakness, strength equal bilaterally - Psychiatric Psychiatric Comment(s): Was oriented to person place and time this morning although did not remember having open heart surgery, [facility] and the month is March and he is here for heart catheterization. Cooperative with care but needs multiple reminders, is very fidgety, and impulsive at times. - Allied health notes Allied health notes reviewed: nursing - Labs CBC & Chem 7: 05/11/19 04:15 05/11/19 04:15 Labs: Abnormal Lab Results - Last 24 Hours (Table) 05/02/19 05/10/19 05/10/19 Range/Units 08:45 10:20 11:51 WBC (3.8-10.6) k/uL RBC (4.30-5.90) m/uL Hgb (13.0-17.5) gm/dL Hct (39.0-53.0) % Plt Count (150-450) k/uL Neutrophils # (1.3-7.7) k/uL Sodium (137-145) mmol/L Glucose (74-99) mg/dL POC Glucose (mg/dL) 151 H 163 H (75-99) mg/dL Calcium (8.4-10.2) mg/dL Alkaline Phosphatase (38-126) U/L Total Protein (6.3-8.2) g/dL Albumin (3.5-5.0) g/dL Crossmatch See Detail 05/10/19 05/10/19 05/10/19 Range/Units 13:59 16:00 18:18 WBC (3.8-10.6) k/uL RBC (4.30-5.90) m/uL Hgb (13.0-17.5) gm/dL Hct (39.0-53.0) % Plt Count (150-450) k/uL Neutrophils # (1.3-7.7) k/uL Sodium (137-145) mmol/L Glucose (74-99) mg/dL POC Glucose (mg/dL) 134 H 135 H 151 H (75-99) mg/dL Calcium (8.4-10.2) mg/dL Alkaline Phosphatase (38-126) U/L Total Protein (6.3-8.2) g/dL Albumin (3.5-5.0) g/dL Crossmatch 05/10/19 05/10/19 05/11/19 Range/Units 20:11 22:19 00:03 WBC (3.8-10.6) k/uL RBC (4.30-5.90) m/uL Hgb (13.0-17.5) gm/dL Hct (39.0-53.0) % Plt Count (150-450) k/uL Neutrophils # (1.3-7.7) k/uL Sodium (137-145) mmol/L Glucose (74-99) mg/dL POC Glucose (mg/dL) 126 H 176 H 141 H (75-99) mg/dL Calcium (8.4-10.2) mg/dL Alkaline Phosphatase (38-126) U/L Total Protein (6.3-8.2) g/dL Albumin (3.5-5.0) g/dL Crossmatch 05/11/19 05/11/19 05/11/19 Range/Units 02:05 04:00 04:15 WBC 12.1 H (3.8-10.6) k/uL RBC 2.03 L (4.30-5.90) m/uL Hgb 6.4 L* (13.0-17.5) gm/dL Hct 18.6 L* (39.0-53.0) % Plt Count 132 L (150-450) k/uL Neutrophils # 9.1 H (1.3-7.7) k/uL Sodium (137-145) mmol/L Glucose (74-99) mg/dL POC Glucose (mg/dL) 147 H 135 H (75-99) mg/dL Calcium (8.4-10.2) mg/dL Alkaline Phosphatase (38-126) U/L Total Protein (6.3-8.2) g/dL Albumin (3.5-5.0) g/dL Crossmatch 05/11/19 05/11/19 05/11/19 Range/Units 04:15 05:58 07:50 WBC (3.8-10.6) k/uL RBC (4.30-5.90) m/uL Hgb (13.0-17.5) gm/dL Hct (39.0-53.0) % Plt Count (150-450) k/uL Neutrophils # (1.3-7.7) k/uL Sodium 135 L (137-145) mmol/L Glucose 122 H (74-99) mg/dL POC Glucose (mg/dL) 140 H 141 H (75-99) mg/dL Calcium 8.3 L (8.4-10.2) mg/dL Alkaline Phosphatase 31 L (38-126) U/L Total Protein 5.0 L (6.3-8.2) g/dL Albumin 2.9 L (3.5-5.0) g/dL Crossmatch - Imaging and Cardiology Chest x-ray: image reviewed Assessment and Plan Assessment: 1. Triple-vessel coronary artery disease with left main disease, status post quadruple coronary artery bypass grafting surgery 2. Mild left ventricular dysfunction 3. Mild to moderate mitral valve regurgitation 4. Chronic atrial fibrillation on Eliquis for anticoagulation preoperatively, status post exclusion left atrial appendage 5. History of dual-chamber permanent pacemaker placement 6. History of TIA 7. Hypertension 8. Hyperlipidemia 9. Daily marijuana use 10. Previous tobacco dependence 11. History of syncope 5 years ago 12. Family history for premature coronary artery disease and alpha-1 antitrypsin deficiency 13. Postoperative acute blood loss anemia Plan: 1. Continue to optimize medical management with aspirin, Plavix, statin and beta davida. Will increase beta davida therapy as tolerated. Will restart Eliquis when able. Will increase Cozaar to 50 mg daily. 2. Encourage use of incentive spirometry every hour while awake. Bronchodilators per pulmonary management. 3. Increase activity, ambulate as tolerated. PT/OT/cardiac rehab following 4. Will monitor daily chest x-rays and labs. Electrolyte replacement per protocol. Will transfuse 1 unit packed red blood cells followed by low-dose Lasix 5. Insulin management per primary care service. 6. Pain control with current medication regimen. Avoid narcotics 7. GI/DVT prophylaxis. 8. Will discontinue epicardial pacemaker wire, mediastinal chest tube, Cordis, arterial line, Renae catheter. Bladder scan every 6 hours, straight cath for greater than 300 mL residual 9. Per PT/OT recommendations, will consult Dr. Hernandez for inpatient rehab at discharge. Social work consulted for insurance authorization. 10. Continue to reorient patient 11. More recommendations to follow based on patient's clinical course. Time with Patient: Greater than 30
--- NOTE | 2019-05-11 09:53 | XR ---
EXAMINATION TYPE: XR chest 1V portable DATE OF EXAM: 05/11/2019 COMPARISON: 05/10/2019 HISTORY: Post cardiac surgery TECHNIQUE: Single frontal view of the chest is obtained. FINDINGS: Endotracheal tube has been removed. Gheens-Nancy catheter has been removed with a residual va scular sheath. Left-sided chest tube noted. No evidence for pneumothorax. Mild basilar atelectasis. T he heart is stable. Hilar and mediastinal structures are within normal limits. Degenerative changes a re seen of the dorsal spine. IMPRESSION: 1. No significant interval change in the appearance of the chest. Subsegmental areas of consolidation most likely in the basis of postoperative atelectasis correlate clinically to exclude infiltrate.
--- NOTE | 2019-05-11 09:58 | PN ---
PROGRESS NOTE Mr. Greco is a 74-year-old male who underwent coronary bypass grafting yesterday. He is awake, alert, sitting up in the chair. During the night he was agitated, pulling out his IV. He appears to be more awake and alert this morning. He denied any chest pain. Hemodynamically, he is stable. He is in atrial fibrillation with 100% pacing. He denies any dizziness or palpitations. He denies any nausea. He had no evidence of hypotension or malignant arrhythmia. He continues to be on aspirin, Lipitor 40 mg daily, Plavix 75 mg daily, losartan 50 mg daily, metoprolol tartrate 25 mg twice a day. PHYSICAL EXAMINATION: Blood pressure 145/60 with a heart rate of 70. LUNGS: No wheezes or rales. HEART: S1, S2 with a systolic murmur. No diastolic murmur. No rub. ABDOMEN: Soft, nontender. EXTREMITIES: With Javier wrapping in place. Chest x-ray revealed no infiltrate. LAB DATA: Revealed hemoglobin down to 6.4. BUN and creatinine 20 and 0.73. IMPRESSION: 1. Status post coronary artery bypass grafting, stable. 2. Chronic persistent atrial fibrillation with permanent pacemaker implantation. 3. Prior history of marijuana use. 4. History of hyperlipidemia. RECOMMENDATIONS: From the cardiac standpoint, will continue present therapy. Once his chest tube is removed then I would recommend to reinitiate anticoagulation. Will follow his hemoglobin and, depending on his progress, further recommendations will be made. MMODL / [place]RIAN: [id number] /
[2019-05-11 10:12] LABS: Glucose,Whole Blood 138 mg/dL (75-99)
--- NOTE | 2019-05-11 10:12 | P.CONS ---
History of Present Illness - Chief Complaint Cardiac debility - History of Present Illness I had the opportunity to see patient for inpatient rehab consultation with regard to cardiac debility. He was admitted to [facility] May 09 for elective CABG 2 vessel, performed by Dr. Rain. Seen in consultation by Drs. Gerber and Jones. Chest x-rays followed for subsegmental consolidation versus atelectasi s. PT reports minimal assistance for transfers and gait 6 feet, hand-held. OT reports maximal assistance for upper/lower dressing, bathing and toileting and minimal assistance functional mobility. Previous functional history as elicited from patient: 74-year-old right-handed white male who is lives in one floor home with . Patient retired. does the cooking and laundry. Patient describes any independent with driving, sponge bath and gait without device. Dr. Wheat is regular doctor. Smokes 2 packs a day and rare drink. Family history mother pulmonary cancer in father with NC. Review of Systems Review of systems: ENT: Denies sneezes or discharge. Eyes: Denies discharge or photophobia. Cardiac: Mild sternal discomfort. Pulmonary: Mild shortness of breath. Gastrointestinal: Denies nausea, emesis, constipation, diarrhea. Genitourinary: Denies discharge or frequency. Musculoskeletal: Denies muscle or bone aches. Neurologic: Confusion, has sitter. Endocrine: Denies shakes or sweats. Oncology: Denies cancers. Dermatologic: Denies rash, itching, pruritus. ALLERGY/immunology: Denies sneezes, rashes. Past Medical History Past Medical History: Atrial Fibrillation, Coronary Artery Disease (CAD), Canc er, CVA/TIA, Hyperlipidemia, Hypertension, Osteoarthritis (OA) Additional Past Medical History / Comment(s): Kidney Stones. Skin CA to chest. CMP. 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 BORDERLINE HTN, NO RX., recent alpha 1 test to check for deficiency-no results yet History of Any Multi-Drug Resistant Organisms: None Reported Past Surgical History: Appendectomy, Cholecystectomy, Heart Catheterization, Orthopedic Surgery, Pacemaker Additional Past Surgical History / Comment(s): Jonathon Knee Arthroscopy. COLONOSCOP Y. Medtronic Pacemaker April 2018. Heart Cath 01/06- triple vessel disease Past Anesthesia/Blood Transfusion Reactions: No Reported Reaction, Motion Sickness Additional Past Anesthesia/Blood Transfusion Reaction / Comm: Brother gets combative with anesthesia. Type of Cardiac Device: Permanent Pacemaker Device Placement Date:: 04/2018 Smoking Status: Former smoker - Past Family History Brother(s) Family Medical History: Deep Vein Thrombosis (DVT), Myocardial Infarction (NC) Additional Family Medical History / Comment(s): . Sister(s) Family Medical History: Cancer Father Family Medical History: Myocardial Infarction (NC) Additional Family Medical History / Comment(s): . Mother Family Medical History: Cancer Additional Family Medical History / Comment(s): lung Medications and Allergies Home Medications Medication Instructions Recorded Confirmed Type Aspirin 81 mg PO Q2D 12/04/14 05/09/19 History Apixaban [Eliquis] 5 mg PO BID 04/14/18 05/09/19 History Atorvastatin [Lipitor] 80 mg PO HS 12/28/18 05/09/19 History Metoprolol Succinate [Toprol XL] 75 mg PO DAILY 12/28/18 05/09/19 History Nitroglycerin Sl Tabs [Nitrostat] 0.4 mg SUBLINGUAL Q5M PRN #25 tab 01/06/19 05/09/19 Rx Ezetimibe [Zetia] 10 mg PO DAILY 05/03/19 05/09/19 History Allergies Allergy/AdvReac Type Severity Reaction Status Date / Time No Known Allergies Allergy Verified 05/09/19 06:18 Physical Exam Vitals: Vital Signs Temp Pulse Resp BP Pulse Ox 05/11/19 09:00 69 21 145/60 98 05/11/19 08:44 70 05/11/19 08:35 69 05/11/19 08:34 98.5 F 69 20 140/65 95 05/11/19 08:04 98.5 F 70 18 145/60 98 05/11/19 08:00 98.5 F 69 15 138/62 98 05/11/19 07:54 98.5 F 69 16 138/62 98 05/11/19 07:00 69 13 133/64 97 05/11/19 06:00 70 10 L 129/61 96 05/11/19 05:00 70 13 138/64 96 05/11/19 04:00 98.1 F 70 18 118/71 97 05/11/19 03:00 69 16 127/61 98 05/11/19 02:00 69 17 121/55 97 05/11/19 01:00 69 18 142/63 05/11/19 00:01 98.1 F 70 14 137/61 98 05/11/19 00:00 14 05/10/19 23:00 69 17 122/59 97 05/10/19 22:00 69 17 136/53 97 05/10/19 21:00 19 132/79 95 05/10/19 20:06 70 05/10/19 20:00 98.4 F 69 14 126/64 97 05/10/19 19:58 69 05/10/19 19:50 13 05/10/19 19:00 69 13 113/57 97 05/10/19 18:00 69 18 124/64 97 05/10/19 17:00 69 23 137/68 95 05/10/19 16:23 70 05/10/19 16:13 69 05/10/19 16:00 97.8 F 69 15 127/64 96 05/10/19 15:00 69 16 80/68 97 05/10/19 14:00 69 18 140/67 100 05/10/19 13:00 69 19 113/58 96 05/10/19 12:00 97.5 F L 69 18 145/71 97 05/10/19 11:57 70 05/10/19 11:48 68 05/10/19 11:00 69 18 119/67 95 Intake and Output 05/10/19 05/11/19 05/11/19 22:59 06:59 14:59 Intake Total 520.757 916.389 419 Output Total 625 490 90 Balance -104.243 426.389 329 Intake: IV 439 424 159 Pressure Bag 39 24 9 Sodium Chloride 0.9% 1, 400 400 150 000 ml @ 50 mls/hr IV . Q20H ÁNGEL Rx#:[id number] Intake, IV Titration 21.757 12.389 Amount Insulin Regular 100 unit 21.757 12.389 In Sodium Chloride 0.9% 100 ml @ Per Protocol IV .Q0M ÁNGEL Rx#:[id number] Oral 60 480 Blood Product 260 Rc Irr Cpda1 Unit 0 [id number] Output: Chest Tube Drainage 220 220 Left Lateral Chest 140 70 Mediastinal 80 150 Drainage 100 15 Left Calf 80 15 Right Calf 20 0 Urine 305 255 90 Other: Voiding Method Indwelling Catheter Indwelling Catheter Indwelling Catheter Weight 87.7 kg ABP, PAP, CO, CI - Last 8 Hours Cardiac Output 5 Cardiac Output 5 Cardiac Index 2.5 Cardiac Index 2.5 Skin: Good color, texture, turgor. General: Overweight build and comfortable appearance. Head: Normocephalic, atraumatic. Eyes: Symmetric. Pupils equal round. Ears: Symmetric. Hearing within normal limits. Mouth: Clear. Neck: Supple. Carotid without bruit. Cardiac: Regular rate and rhythm. Sternum clean and dressed. Heart failure. Lungs: Clear anteriorly and posteriorly. Abdomen: Soft active nontender. Extremities: Normal tone. Neurological: Mental status: Alert, cooperative, pleasant. Cranial nerves: Symmetric facial tone and trapezius. Motor: Active movement all 4 limbs including distally. Sensation: Intact throughout. DTRs: Symmetric and equal throughout. Mobility: Requires assistance for bed mobility. Results CBC & Chem 7: 05/11/19 04:15 05/11/19 04:15 Labs: Abnormal Lab Results - Last 24 Hours (Table) 05/02/19 05/10/19 05/10/19 Range/Units 08:45 10:20 11:51 WBC (3.8-10.6) k/uL RBC (4.30-5.90) m/uL Hgb (13.0-17.5) gm/dL Hct (39.0-53.0) % Plt Count (150-450) k/uL Neutrophils # (1.3-7.7) k/uL Sodium (137-145) mmol/L Glucose (74-99) mg/dL POC Glucose (mg/dL) 151 H 163 H (75-99) mg/dL Calcium (8.4-10.2) mg/dL Alkaline Phosphatase (38-126) U/L Total Protein (6.3-8.2) g/dL Albumin (3.5-5.0) g/dL Crossmatch See Detail 05/10/19 05/10/19 05/10/19 Range/Units 13:59 16:00 18:18 WBC (3.8-10.6) k/uL RBC (4.30-5.90) m/uL Hgb (13.0-17.5) gm/dL Hct (39.0-53.0) % Plt Count (150-450) k/uL Neutrophils # (1.3-7.7) k/uL Sodium (137-145) mmol/L Glucose (74-99) mg/dL POC Glucose (mg/dL) 134 H 135 H 151 H (75-99) mg/dL Calcium (8.4-10.2) mg/dL Alkaline Phosphatase (38-126) U/L Total Protein (6.3-8.2) g/dL Albumin (3.5-5.0) g/dL Crossmatch 05/10/19 05/10/19 05/11/19 Range/Units 20:11 22:19 00:03 WBC (3.8-10.6) k/uL RBC (4.30-5.90) m/uL Hgb (13.0-17.5) gm/dL Hct (39.0-53.0) % Plt Count (150-450) k/uL Neutrophils # (1.3-7.7) k/uL Sodium (137-145) mmol/L Glucose (74-99) mg/dL POC Glucose (mg/dL) 126 H 176 H 141 H (75-99) mg/dL Calcium (8.4-10.2) mg/dL Alkaline Phosphatase (38-126) U/L Total Protein (6.3-8.2) g/dL Albumin (3.5-5.0) g/dL Crossmatch 05/11/19 05/11/19 05/11/19 Range/Units 02:05 04:00 04:15 WBC 12.1 H (3.8-10.6) k/uL RBC 2.03 L (4.30-5.90) m/uL Hgb 6.4 L* (13.0-17.5) gm/dL Hct 18.6 L* (39.0-53.0) % Plt Count 132 L (150-450) k/uL Neutrophils # 9.1 H (1.3-7.7) k/uL Sodium (137-145) mmol/L Glucose (74-99) mg/dL POC Glucose (mg/dL) 147 H 135 H (75-99) mg/dL Calcium (8.4-10.2) mg/dL Alkaline Phosphatase (38-126) U/L Total Protein (6.3-8.2) g/dL Albumin (3.5-5.0) g/dL Crossmatch 05/11/19 05/11/19 05/11/19 Range/Units 04:15 05:58 07:50 WBC (3.8-10.6) k/uL RBC (4.30-5.90) m/uL Hgb (13.0-17.5) gm/dL Hct (39.0-53.0) % Plt Count (150-450) k/uL Neutrophils # (1.3-7.7) k/uL Sodium 135 L (137-145) mmol/L Glucose 122 H (74-99) mg/dL POC Glucose (mg/dL) 140 H 141 H (75-99) mg/dL Calcium 8.3 L (8.4-10.2) mg/dL Alkaline Phosphatase 31 L (38-126) U/L Total Protein 5.0 L (6.3-8.2) g/dL Albumin 2.9 L (3.5-5.0) g/dL Crossmatch Assessment and Plan Plan: Impression: 1. Cardiac debility. 2. Coronary disease and elective CABG two-vessel. 3. Confusion, requiring sitter. 4. Hypertension. 5. Dyslipidemia. 6. Moraima arthritis. 7. Atrial fibrillation. 8. History of stroke and of cancer. Comments and plan: At this time PT and OT are ongoing. Safety concerns noted. Would anticipate return to home with . We'll of course follow for possible inpatient rehab and note safety concerns currently.
[2019-05-11] MEDS ORDERED: FUROSEMIDE 10 MG/ML 2 ML VIAL IV ONE (10:25)
[2019-05-11] MEDS ORDERED: LOSARTAN 50 MG TAB PO SCH (12:00)
[2019-05-11 12:19] LABS: Glucose,Whole Blood 139 mg/dL (75-99)
--- NOTE | 2019-05-11 12:44 | P.PN ---
Subjective Progress Note Date: 05/11/19 Principal diagnosis: Triple-vessel coronary artery disease POD #1 quadruple coronary artery bypass grafting using the left internal mammary artery to the ramus intermedius coronary artery sequentially then to the left anterior descending coronary artery, a reverse greater saphenous vein graft from the aorta to the obtuse marginal coronary artery, a reverse greater saphenous vein graft from the aorta to the left ventricular branch of the right coronary artery, a reverse greater saphenous vein graft from the previous graft to the posterior descending coronary artery in a Y fashion. Exclusion of the left atrial appendage using a 45 mm atrial clip. Intraoperative graft flow measurements using the ProQuostim system, endoscopic harvesting of the bilateral greater saphenous vein except below the knee on the right side, intraoperative transesophageal echocardiogram and epi-aortic scanning. Patient was reevaluated today on 05/10/2019, patient is now on room air, extubated last night. Hours after he arrived to the ICU. His postoperative course has been uneventful. Patient is asymptomatic, denies any shortness of breath, he is not requiring any pressors or inotropes. Patient is doing fairly well with incentive spirometry, chest x-ray showed very minimal basilar atele ctasis as expected. Chest tubes were noted. His hemodynamic profile today showed a cardiac index of 2.5, pulmonary artery pressure is 22/10. Patient is again asymptomatic labs were all reviewed. Reevaluated today on 05/11/2019, patient is doing fairly well except for some component of confusion patient seems to be a bit disoriented, and his mental status seems to wax and wane. Patient is in no form of respiratory distress, but again intermittently confused. No cough no wheezing no shortness of breath. Chest x-ray is basically unremarkable except for minimal atelectasis. Hemoglobin today was 6.4 and the patient is receiving a unit of packed RBCs. Patient is hemodynamically stable, not requiring any pressors or inotropes. Objective - Vital Signs Vital signs: Vital Signs Temp 98.7 F 05/11/19 12:00 Pulse 71 05/11/19 12:03 Resp 13 05/11/19 12:00 BP 139/62 05/11/19 12:00 Pulse Ox 98 05/11/19 12:00 Intake & Output 05/10/19 05/11/19 05/11/19 18:59 06:59 18:59 Intake Total 336.029 2789.723 572 Output Total 605 815 580 Balance 276.581 320.723 -8 Weight 88.4 kg 87.7 kg Intake: IV 625 639 222 Nitroglycerin-D5w Pmx 50 0 mg In Dextrose/Water 1 250ml.bag @ 5 MCG/MIN 1.5 mls/hr IV .Q24H [facility] Rx#: [id number] Pressure Bag 75 39 12 Sodium Chloride 0.9% 1, 550 600 210 000 ml @ 50 mls/hr IV . Q20H [facility] Rx#:[id number] Intake, IV Titration 46.581 16.723 Amount Insulin Regular 100 unit 25.806 16.723 In Sodium Chloride 0.9% 100 ml @ Per Protocol IV .Q0M [facility] Rx#:[id number] Nitroglycerin-D5w Pmx 50 20.775 mg In Dextrose/Water 1 250ml.bag @ 5 MCG/MIN 1.5 mls/hr IV .Q24H [facility] Rx#: [id number] Oral 210 480 90 Blood Product 260 Rc Irr Cpda1 Unit 0 [id number] Output: Chest Tube Drainage 180 340 20 Left Lateral Chest 70 190 20 Mediastinal 110 150 Drainage 70 45 Left Calf 50 45 Right Calf 20 0 Urine 355 430 560 Other: Voiding Method Indwelling Catheter Indwelling Catheter Indwelling Catheter ABP, PAP, CO, CI - Last Documented Arterial Blood Pressure 135/53 Pulmonary Artery Pressure 23/4 Cardiac Output 5 Cardiac Index 2.5 - Exam Physical Exam: Revealed 74-year-old white male in no distress. Head: Atraumatic, normocephalic. HEENT:[Neck is supple.] [No neck masses.] [No thyromegaly.] [No JVD.] Chest: [Clear throughout, slightly diminished breath sounds at the bases, no rhonchi and no wheezes. Cardiac Exam: [Normal S1 and S2, no S3 gallop, no murmur.] Abdomen: [Soft, nontender, no megaly, no rebound, no guarding, normal bowel sounds.] Extremities: [No clubbing, no edema, no cyanosis.] Neurological Exam: Confused to time and place. Patient stated that he was at [facility], and he thought that we are in January. Psychiatric: Normal mood affect and confused mental status. Skin: No rashes. - Labs CBC & Chem 7: 05/11/19 04:15 05/11/19 04:15 Labs: Abnormal Lab Results - Last 24 Hours (Table) 05/02/19 05/10/19 05/10/19 Range/Units 08:45 13:59 16:00 WBC (3.8-10.6) k/uL RBC (4.30-5.90) m/uL Hgb (13.0-17.5) gm/dL Hct (39.0-53.0) % Plt Count (150-450) k/uL Neutrophils # (1.3-7.7) k/uL Sodium (137-145) mmol/L Glucose (74-99) mg/dL POC Glucose (mg/dL) 134 H 135 H (75-99) mg/dL Calcium (8.4-10.2) mg/dL Alkaline Phosphatase (38-126) U/L Total Protein (6.3-8.2) g/dL Albumin (3.5-5.0) g/dL Crossmatch See Detail 05/10/19 05/10/19 05/10/19 Range/Units 18:18 20:11 22:19 WBC (3.8-10.6) k/uL RBC (4.30-5.90) m/uL Hgb (13.0-17.5) gm/dL Hct (39.0-53.0) % Plt Count (150-450) k/uL Neutrophils # (1.3-7.7) k/uL Sodium (137-145) mmol/L Glucose (74-99) mg/dL POC Glucose (mg/dL) 151 H 126 H 176 H (75-99) mg/dL Calcium (8.4-10.2) mg/dL Alkaline Phosphatase (38-126) U/L Total Protein (6.3-8.2) g/dL Albumin (3.5-5.0) g/dL Crossmatch 05/11/19 05/11/19 05/11/19 Range/Units 00:03 02:05 04:00 WBC (3.8-10.6) k/uL RBC (4.30-5.90) m/uL Hgb (13.0-17.5) gm/dL Hct (39.0-53.0) % Plt Count (150-450) k/uL Neutrophils # (1.3-7.7) k/uL Sodium (137-145) mmol/L Glucose (74-99) mg/dL POC Glucose (mg/dL) 141 H 147 H 135 H (75-99) mg/dL Calcium (8.4-10.2) mg/dL Alkaline Phosphatase (38-126) U/L Total Protein (6.3-8.2) g/dL Albumin (3.5-5.0) g/dL Crossmatch 05/11/19 05/11/19 05/11/19 Range/Units 04:15 04:15 05:58 WBC 12.1 H (3.8-10.6) k/uL RBC 2.03 L (4.30-5.90) m/uL Hgb 6.4 L* (13.0-17.5) gm/dL Hct 18.6 L* (39.0-53.0) % Plt Count 132 L (150-450) k/uL Neutrophils # 9.1 H (1.3-7.7) k/uL Sodium 135 L (137-145) mmol/L Glucose 122 H (74-99) mg/dL POC Glucose (mg/dL) 140 H (75-99) mg/dL Calcium 8.3 L (8.4-10.2) mg/dL Alkaline Phosphatase 31 L (38-126) U/L Total Protein 5.0 L (6.3-8.2) g/dL Albumin 2.9 L (3.5-5.0) g/dL Crossmatch 05/11/19 05/11/19 05/11/19 Range/Units 07:50 10:11 12:17 WBC (3.8-10.6) k/uL RBC (4.30-5.90) m/uL Hgb (13.0-17.5) gm/dL Hct (39.0-53.0) % Plt Count (150-450) k/uL Neutrophils # (1.3-7.7) k/uL Sodium (137-145) mmol/L Glucose (74-99) mg/dL POC Glucose (mg/dL) 141 H 138 H 139 H (75-99) mg/dL Calcium (8.4-10.2) mg/dL Alkaline Phosphatase (38-126) U/L Total Protein (6.3-8.2) g/dL Albumin (3.5-5.0) g/dL Crossmatch Assessment and Plan Assessment: impression: 1. Triple-vessel coronary artery disease with left main disease status post quadruple coronary artery bypass grafting surgery postoperative day #2 2 history of chronic atrial fibrillation. 3 history of dyslipidemia. 4 family history of alpha-1 antitrypsin deficiency. 5 significant history of marijuana smoking over the last 27 years. 6 mild left ventricular dysfunction 7 [id number] mitral valve regurgitation 8 family history of premature coronary artery disease. 9 postoperative atelectasis as noted on the chest x-ray, and this is expected. 10 postoperative anemia secondary to blood loss, expected. Patient is receiving a unit of packed RBCs this morning. Recommendation: Continue to optimize medical management including beta blockers statins Plavix and aspirin. Continue incentive spirometry, and continue bronchodilators. Remove and discontinue unnecessary catheters and lines. Continue insulin management. Minimize pain medications because of the patient's confusion. Increase activity as tolerated.. Continue ambulation. We'll continue to follow. Time with Patient: Less than 30
[2019-05-11] MEDS ORDERED: SODIUM CHLORIDE 0.65% NASAL SPRAY 44 ML BTL NASAL PRN (13:23)
--- NOTE | 2019-05-11 13:24 | P.PN ---
Subjective Progress Note Date: 05/11/19 Principal diagnosis: CAD, post CABG, HTN and Hyperlipidemia 74-year-old male one of my office patient with past medical history of CAD, A. fib, hypertension, hyperlipidemia and previous history of CVA who had the history of pacemaker as well developed to have A. fib with RVR was referred to cardiology and end up going for heart catheter for positive stress test came back with significant 3 vessel disease. Patient initially refused to go for surgery and then was referred to cardiothoracic surgeon in [facility] [facility] and ended up schedule elective CABG on 05/09/[address] Pearson. Patient was seen pulmonary had PFT and other testing and prepare for surgery. Patient had 5 vessel bypass surgery successfully was on mechanical ventilation had 2 chest tube otherwise stable was transferred to the ICU. 05/11: Patient is doing very well so far still in ICU sitting in the chair today still have 1 chest tube he has mild arrhythmia mild chest pain and discomfort otherwise doing well he did some physical therapy and hemodynamic is more stable. Objective - Vital Signs Vital signs: Vital Signs Temp 98.7 F 05/11/19 12:00 Pulse 71 05/11/19 12:03 Resp 13 05/11/19 12:00 BP 139/62 05/11/19 12:00 Pulse Ox 98 05/11/19 12:00 Intake & Output 05/10/19 05/11/19 05/11/19 18:59 06:59 18:59 Intake Total 529.582 4861.723 572 Output Total 605 815 580 Balance 276.581 320.723 -8 Weight 88.4 kg 87.7 kg Intake: IV 625 639 222 Nitroglycerin-D5w Pmx 50 0 mg In Dextrose/Water 1 250ml.bag @ 5 MCG/MIN 1.5 mls/hr IV .Q24H [facility] Rx#: [id number] Pressure Bag 75 39 12 Sodium Chloride 0.9% 1, 550 600 210 000 ml @ 50 mls/hr IV . Q20H [facility] Rx#:[id number] Intake, IV Titration 46.581 16.723 Amount Insulin Regular 100 unit 25.806 16.723 In Sodium Chloride 0.9% 100 ml @ Per Protocol IV .Q0M [facility] Rx#:[id number] Nitroglycerin-D5w Pmx 50 20.775 mg In Dextrose/Water 1 250ml.bag @ 5 MCG/MIN 1.5 mls/hr IV .Q24H [facility] Rx#: [id number] Oral 210 480 90 Blood Product 260 Rc Irr Cpda1 Unit 0 [id number] Output: Chest Tube Drainage 180 340 20 Left Lateral Chest 70 190 20 Mediastinal 110 150 Drainage 70 45 Left Calf 50 45 Right Calf 20 0 Urine 355 430 560 Other: Voiding Method Indwelling Catheter Indwelling Catheter Indwelling Catheter ABP, PAP, CO, CI - Last Documented Arterial Blood Pressure 135/53 Pulmonary Artery Pressure 23/4 Cardiac Output 5 Cardiac Index 2.5 - Exam Review of Systems CONSTITUTIONAL: Well-developed no acute respiratory distress. EYES: No icterus sclerae, no conjunctivitis. EARS, NOSE, MOUTH, THROAT, and FACE: No sore throat, lymphadenopathy, carotid bruits or deformity. RESPIRATORY: Mild shortness of breath with no cough or wheezes. CARDIOVASCULAR: Positive A. fib, pacemaker, positive stress test and 3 vessel disease. GASTROINTESTINAL: No Abd pain, Nausea or vomiting, no Diarrhea or constipation, No GI Bleed, no distention or masses. GENITOURINARY: Negative for Hematuria or UTI, no kidney stones. INTEGUMENT/BREAST: Negative for any muscular injury with mild osteoarthritis.. HEMATOLOGIC/LYMPHATIC: Negative for bleed or purpura. MUSCULOSKELTAL: Negative for Myalgia or arthralgia. NEURLOGICAL: No LOC, Sz or syncope, blurred vision dizziness or abnormality.. BEHAVIORAL/PSYCH: Negative. ENDOCRINE: Negative. Physical Exam General Appearance: Alert, cooperative, no distress, appears stated age. Neck HEENT: Supple, no lymphadenopathy, no thyroid enlargement, no carotid bruits. Lungs: Clear to auscultation without crackles or wheezes no rhonchi, no deformity. Chest Wall: Chest wall normal expansion with deep inspiration no tenderness and no deformity was found on exam, no costochondral pain or discomfort. Heart: Regular rate and rhythm, S1, S2 normal, no murmur, rub or gallop. Back: Symmetric, no curvature, ROM normal, no CVA tenderness. Abdomen: Soft, non-tender, bowel sounds active all four quadrants, no masses, no organomegaly. Extremities: Extremities normal, atraumatic, no cyanosis or edema. Pulses: 2+ and symmetric. Skin: Skin color, texture, tugor normal, no rashes or lesions. Neurologic: Alert oriented x3 cranial nerves II through XII intact, no motor deficit, no abnormal balance or gait. - Labs CBC & Chem 7: 05/11/19 04:15 05/11/19 04:15 Labs: Abnormal Lab Results - Last 24 Hours (Table) 05/02/19 05/10/19 05/10/19 Range/Units 08:45 13:59 16:00 WBC (3.8-10.6) k/uL RBC (4.30-5.90) m/uL Hgb (13.0-17.5) gm/dL Hct (39.0-53.0) % Plt Count (150-450) k/uL Neutrophils # (1.3-7.7) k/uL Sodium (137-145) mmol/L Glucose (74-99) mg/dL POC Glucose (mg/dL) 134 H 135 H (75-99) mg/dL Calcium (8.4-10.2) mg/dL Alkaline Phosphatase (38-126) U/L Total Protein (6.3-8.2) g/dL Albumin (3.5-5.0) g/dL Crossmatch See Detail 05/10/19 05/10/19 05/10/19 Range/Units 18:18 20:11 22:19 WBC (3.8-10.6) k/uL RBC (4.30-5.90) m/uL Hgb (13.0-17.5) gm/dL Hct (39.0-53.0) % Plt Count (150-450) k/uL Neutrophils # (1.3-7.7) k/uL Sodium (137-145) mmol/L Glucose (74-99) mg/dL POC Glucose (mg/dL) 151 H 126 H 176 H (75-99) mg/dL Calcium (8.4-10.2) mg/dL Alkaline Phosphatase (38-126) U/L Total Protein (6.3-8.2) g/dL Albumin (3.5-5.0) g/dL Crossmatch 05/11/19 05/11/19 05/11/19 Range/Units 00:03 02:05 04:00 WBC (3.8-10.6) k/uL RBC (4.30-5.90) m/uL Hgb (13.0-17.5) gm/dL Hct (39.0-53.0) % Plt Count (150-450) k/uL Neutrophils # (1.3-7.7) k/uL Sodium (137-145) mmol/L Glucose (74-99) mg/dL POC Glucose (mg/dL) 141 H 147 H 135 H (75-99) mg/dL Calcium (8.4-10.2) mg/dL Alkaline Phosphatase (38-126) U/L Total Protein (6.3-8.2) g/dL Albumin (3.5-5.0) g/dL Crossmatch 05/11/19 05/11/19 05/11/19 Range/Units 04:15 04:15 05:58 WBC 12.1 H (3.8-10.6) k/uL RBC 2.03 L (4.30-5.90) m/uL Hgb 6.4 L* (13.0-17.5) gm/dL Hct 18.6 L* (39.0-53.0) % Plt Count 132 L (150-450) k/uL Neutrophils # 9.1 H (1.3-7.7) k/uL Sodium 135 L (137-145) mmol/L Glucose 122 H (74-99) mg/dL POC Glucose (mg/dL) 140 H (75-99) mg/dL Calcium 8.3 L (8.4-10.2) mg/dL Alkaline Phosphatase 31 L (38-126) U/L Total Protein 5.0 L (6.3-8.2) g/dL Albumin 2.9 L (3.5-5.0) g/dL Crossmatch 05/11/19 05/11/19 05/11/19 Range/Units 07:50 10:11 12:17 WBC (3.8-10.6) k/uL RBC (4.30-5.90) m/uL Hgb (13.0-17.5) gm/dL Hct (39.0-53.0) % Plt Count (150-450) k/uL Neutrophils # (1.3-7.7) k/uL Sodium (137-145) mmol/L Glucose (74-99) mg/dL POC Glucose (mg/dL) 141 H 138 H 139 H (75-99) mg/dL Calcium (8.4-10.2) mg/dL Alkaline Phosphatase (38-126) U/L Total Protein (6.3-8.2) g/dL Albumin (3.5-5.0) g/dL Crossmatch Assessment and Plan Plan: 1 status post CAB vessel coronary artery bypass graft done patient is doing very well off mechanical ventilation and sitting in the chair and very stable and within a medically. 2 advanced CAD: With positive stress test and heart cath, post surgery. 3 A. fib with RVR: Patient pulse rates under control currently patient had procedure done with surgery would probably help to reduce the possibility of thrombus from A. fib. 4 hyperlipidemia: Has been on atorvastatin 80 mg a day continue medication. 5 hypertension: On metoprolol and can benefit from small dose of CHRIS inhibitor. 6 GERD/GI prophylaxis: Patient will be on pantoprazole. 7 BPH: Watch for any urinary retention. Patient is doing very well medically advance PTOT and still discussed poss ibility whether he need to go to rehab or not.
[2019-05-11 17:46] LABS: Glucose,Whole Blood 177 mg/dL (75-99)
[2019-05-11] MEDS: INSULIN ASPART (NovoLOG) 100 UNIT/ML VIAL SQ SCH ×3 (17:46→20:30)
[2019-05-11] MEDS: TAMSULOSIN 0.4 MG CAP.ER.24H PO SCH (17:49)
[2019-05-11] MEDS: SENNOSIDES-DOCUSATE SODIUM 1 EACH TAB PO SCH (20:30)
[2019-05-11 20:31] LABS: Glucose,Whole Blood 129 mg/dL (75-99)
[2019-05-12 05:24] LABS: Anisocytosis Slight; Basophils % (A) 0 %; Eosinophils % (A) 0 %; HCT 21.5 % (39.0-53.0); HGB 7.4 gm/dL (13.0-17.5); Lymphocytes # (A) 1.5 k/uL (1.0-4.8); Lymphocytes % (A) 15 %; MCH 30.8 pg (25.0-35.0); MCHC 34.5 g/dL (31.0-37.0); MCV 89.2 fL (80.0-100.0); Mean Platelet Volume 7.8; Monocytes # (A) 0.8 k/uL (0-1.0); Monocytes % (A) 8 %; Neutrophils # (A) 7.6 k/uL (1.3-7.7); Neutrophils % (A) 75 %; Platelet Count 145 k/uL (150-450); RBC 2.41 m/uL (4.30-5.90); RDW 16.3 % (11.5-15.5); WBC 10.1 k/uL (3.8-10.6)
[2019-05-12 05:35] LABS: ALT 27 U/L (21-72); AST 35 U/L (17-59); African American GFR (CKD) >90 (>60 ml/min/1.73 sqM); Alkaline Phosphatase 37 U/L (38-126); Anion Gap 4 mmol/L; Blood Urea Nitrogen 19 mg/dL (9-20); Calcium 8.2 mg/dL (8.4-10.2); Carbon Dioxide 26 mmol/L (22-30); Chloride 107 mmol/L (98-107); Glucose 120 mg/dL (74-99); Magnesium 2.1 mg/dL (1.6-2.3); Non-African American GFR(CKD) >90 (>60 ml/min/1.73 sqM); Potassium 4.3 mmol/L (3.5-5.1); Sodium 137 mmol/L (137-145); Total Bilirubin 1.3 mg/dL (0.2-1.3); Total Protein 5.3 g/dL (6.3-8.2)
[2019-05-12 06:51] LABS: Glucose,Whole Blood 151 mg/dL (75-99)
[2019-05-12] MEDS: KETOROLAC 30 MG/ML 1 ML VIAL IVP SCH ×4 (07:11→23:32)
[2019-05-12] MEDS: INSULIN ASPART (NovoLOG) 100 UNIT/ML VIAL SQ SCH ×4 (07:12→21:09)
[2019-05-12] MEDS: PANTOPRAZOLE 40 MG TABLET PO SCH (07:12)
--- NOTE | 2019-05-12 08:29 | P.PN ---
<Lauren Escobar - Last Filed: 05/12/19 08:02> Subjective Progress Note Date: 05/12/19 Principal diagnosis: Triple-vessel coronary artery disease with left main disease, mild left ventricular dysfunction, mild to moderate mitral valve regurgitation, chronic atrial fibrillation on Eliquis for anticoagulation, status post dual-chamber pacemaker, history of TIA. History of hypertension, hyperlipidemia, previous tobacco dependence, daily marijuana use, syncope 5 years ago, and family history of premature coronary artery disease and alpha-1 antitrypsin deficiency. POD #3 quintuple coronary artery bypass grafting using the left internal mammary artery to the ramus intermedius artery sequentially then to the left anterior descending artery, reverse saphenous vein graft from the aorta to the obtuse marginal artery, reverse saphenous vein graft from the aorta to the left ventricular branch of the right coronary artery, reverse saphenous vein graft from the previous graft to the posterior descending artery in a Y fashion. Exclusion of the left atrial appendage using a 45 mm AtriClip. Intraoperative graft flow measurements using the TuVoxim system. Endoscopic harvesting of the bilateral greater saphenous vein except below the knee on the right side. Intraoperative transesophageal echocardiogram and epi-aortic scanning. Postoperative acute blood loss anemia, expected secondary to cardiopulmonary bypass and hemodilution The patient's currently sitting up in a recliner in the intensive care unit in no acute distress. Patient is not confuses morning, alert and oriented 3, did get some sleep last night. Denies any pain, shortness of breath. Left pleural chest tubes remain. Hemodynamically stable on no inotropes or pressors. Ambulated in hallway with assistance multiple times yesterday. Hemoglobin improved after transfusion yesterday. No new concerns. Objective - Vital Signs Vital signs: Vital Signs Temp 98.8 F 05/12/19 04:00 Pulse 70 05/12/19 07:00 Resp 17 05/12/19 07:00 BP 140/69 05/12/19 07:00 Pulse Ox 95 05/12/19 07:00 Intake & Output 05/11/19 05/12/19 05/12/19 18:59 06:59 18:59 Intake Total 802 250 Output Total 1610 1105 30 Balance -808 -855 -30 Weight 86.2 kg Intake: IV 242 Pressure Bag 12 Sodium Chloride 0.9% 1, 230 000 ml @ 50 mls/hr IV . Q20H [facility] Rx#:[id number] Oral 300 250 Blood Product 260 Rc Irr Cpda1 Unit 0 [id number] Output: Chest Tube Drainage 100 230 30 Left Lateral Chest 100 230 30 Urine 1510 875 0 Other: Voiding Method Urinal Urinal # Voids 1 ABP, PAP, CO, CI - Last Documented Arterial Blood Pressure 135/53 Pulmonary Artery Pressure 23/4 Cardiac Output 5 Cardiac Index 2.5 - Constitutional General appearance: Present: cooperative, no acute distress - Respiratory Details: Lungs sounds diminished bilaterally. Respirations even, nonlabored. Currently on room air with oxygen saturation 95%. Able to achieve 2000 mL on his incentive spirometry. Strong cough. Left pleural chest tube to continuous wall suction, 150 mL thin serosanguineous drainage overnight, 400 mL in the last 24 hours. No air leaks present. - Cardiovascular Details: S1, S2 present. Irregular rate and rhythm, controlled atrial fibrillation on telemetry. Sternum stable. Palpable peripheral pulses bilaterally. Trace generalized edema present. No calf pain or tenderness noted. Heart hugger in place with patient demonstrating appropriate use with encouragement. Antiembolism stockings, SCDs present. - Gastrointestinal Gastrointestinal Comment(s): Abdomen soft, nontender, nondistended. Active bowel sounds present 4 quadrants. Tolerating diet. - Genitourinary Genitourinary Comment(s): Renae discontinued yesterday. Patient voiding approximately 400-450 mL at a time. - Integumentary Integumentary Comment(s): Skin is warm and dry with evidence of good perfusion. Anterior chest incision well approximated and covered with dry intact dressing. Bilateral lower extremity EVH sites well approximated. - Neurologic Neurologic: Present: CNII-XII intact - Musculoskeletal Musculoskeletal: Present: gait normal, strength equal bilaterally - Psychiatric Psychiatric: Present: A&O x's 3, appropriate affect, intact judgment & insight - Allied health notes Allied health notes reviewed: nursing - Labs CBC & Chem 7: 05/12/19 04:56 05/12/19 04:56 Labs: Abnormal Lab Results - Last 24 Hours (Table) 05/02/19 05/11/19 05/11/19 Range/Units 08:45 10:11 12:17 RBC (4.30-5.90) m/uL Hgb (13.0-17.5) gm/dL Hct (39.0-53.0) % RDW (11.5-15.5) % Plt Count (150-450) k/uL Glucose (74-99) mg/dL POC Glucose (mg/dL) 138 H 139 H (75-99) mg/dL Calcium (8.4-10.2) mg/dL Alkaline Phosphatase (38-126) U/L Total Protein (6.3-8.2) g/dL Albumin (3.5-5.0) g/dL Crossmatch See Detail 05/11/19 05/11/19 05/12/19 Range/Units 17:45 20:30 04:56 RBC 2.41 L (4.30-5.90) m/uL Hgb 7.4 L (13.0-17.5) gm/dL Hct 21.5 L (39.0-53.0) % RDW 16.3 H (11.5-15.5) % Plt Count 145 L (150-450) k/uL Glucose (74-99) mg/dL POC Glucose (mg/dL) 177 H 129 H (75-99) mg/dL Calcium (8.4-10.2) mg/dL Alkaline Phosphatase (38-126) U/L Total Protein (6.3-8.2) g/dL Albumin (3.5-5.0) g/dL Crossmatch 05/12/19 05/12/19 Range/Units 04:56 06:49 RBC (4.30-5.90) m/uL Hgb (13.0-17.5) gm/dL Hct (39.0-53.0) % RDW (11.5-15.5) % Plt Count (150-450) k/uL Glucose 120 H (74-99) mg/dL POC Glucose (mg/dL) 151 H (75-99) mg/dL Calcium 8.2 L (8.4-10.2) mg/dL Alkaline Phosphatase 37 L (38-126) U/L Total Protein 5.3 L (6.3-8.2) g/dL Albumin 3.0 L (3.5-5.0) g/dL Crossmatch - Imaging and Cardiology Chest x-ray: image reviewed Assessment and Plan Assessment: 1. Triple-vessel coronary artery disease with left main disease, status post quadruple coronary artery bypass grafting surgery 2. Mild left ventricular dysfunction 3. Mild to moderate mitral valve regurgitation 4. Chronic atrial fibrillation on Eliquis for anticoagulation preoperatively, status post exclusion left atrial appendage 5. History of dual-chamber permanent pacemaker placement 6. History of TIA 7. Hypertension 8. Hyperlipidemia 9. Daily marijuana use 10. Previous tobacco dependence 11. History of syncope 5 years ago 12. Family history for premature coronary artery disease and alpha-1 antitrypsin deficiency 13. Postoperative acute blood loss anemia Plan: 1. Continue to optimize medical management with aspirin, Plavix, statin and beta davida. Will increase beta davida therapy as tolerated. Likely will restart Eliquis today. Will increase Cozaar to 100 mg daily. 2. Encourage use of incentive spirometry every hour while awake. Bronchodilators per pulmonary management. 3. Increase activity, ambulate as tolerated. PT/OT/cardiac rehab following 4. Will monitor daily chest x-rays and labs. Electrolyte replacement per protocol. 5. Insulin management per primary care service. 6. Pain control with current medication regimen. Avoid narcotics 7. GI/DVT prophylaxis. 8. Per PT/OT recommendations, Dr. Hernandez consulted for inpatient rehab at discharge. Social work consulted for insurance authorization. 9. Likely will place transfer orders for 3 S. cardiac stepdown unit today 10. Possible discharge in the next 48-72 hours. Discharge planning in progress. 11. More recommendations to follow based on patient's clinical course. Time with Patient: Greater than 30 <Mili Rain - Last Filed: 05/13/19 11:09> Objective - Vital Signs Vital signs: Vital Signs Temp 98.6 F 05/13/19 08:00 Pulse 70 05/13/19 08:00 Resp 14 05/13/19 08:00 BP 124/68 05/13/19 08:00 Pulse Ox 96 05/13/19 04:00 Intake & Output 05/12/19 05/13/19 05/13/19 18:59 06:59 18:59 Intake Total 580 200 240 Output Total 640 300 Balance -60 -100 240 Weight 87 kg Intake: Oral 580 200 240 Output: Chest Tube Drainage 40 Left Lateral Chest 40 Urine 600 300 Other: Voiding Method Urinal Toilet Urinal ABP, PAP, CO, CI - Last Documented Arterial Blood Pressure 135/53 Pulmonary Artery Pressure 23/4 Cardiac Output 5 Cardiac Index 2.5 - Labs CBC & Chem 7: 05/13/19 05:20 05/13/19 05:20 Labs: Abnormal Lab Results - Last 24 Hours (Table) 05/12/19 05/12/19 05/12/19 Range/Units 11:56 16:09 21:02 RBC (4.30-5.90) m/uL Hgb (13.0-17.5) gm/dL Hct (39.0-53.0) % RDW (11.5-15.5) % BUN (9-20) mg/dL Glucose (74-99) mg/dL POC Glucose (mg/dL) 192 H 165 H 184 H (75-99) mg/dL Calcium (8.4-10.2) mg/dL 05/13/19 05/13/19 05/13/19 Range/Units 05:20 05:20 06:49 RBC 2.38 L (4.30-5.90) m/uL Hgb 7.3 L (13.0-17.5) gm/dL Hct 21.5 L (39.0-53.0) % RDW 16.6 H (11.5-15.5) % BUN 21 H (9-20) mg/dL Glucose 124 H (74-99) mg/dL POC Glucose (mg/dL) 134 H (75-99) mg/dL Calcium 8.0 L (8.4-10.2) mg/dL Assessment and Plan Assessment: Patient is S/P [id number] (not quadruple as mentioned above)
[2019-05-12] MEDS: METOPROLOL TARTRATE 25 MG TAB PO SCH ×2 (08:46→21:09)
[2019-05-12] MEDS: HEPARIN SODIUM,PORCINE 5,000 UNIT/ML 1 ML VIAL SQ SCH ×3 (08:46→23:33)
[2019-05-12] MEDS: ASPIRIN 325 MG TAB PO SCH (08:46)
[2019-05-12] MEDS: CLOPIDOGREL 75 MG TAB PO SCH (08:46)
[2019-05-12] MEDS: ATORVASTATIN 40 MG TAB PO SCH (08:46)
[2019-05-12] MEDS: IPRATROPIUM-ALBUTEROL 3 ML NEB INHALATION SCH ×4 (08:50→19:25)
--- NOTE | 2019-05-12 09:09 | PN ---
PROGRESS NOTE Mr. Greco is a 74-year-old male, status post coronary bypass grafting performed by Dr. Albrecht. History of chronic persistent atrial fibrillation, anticoagulated in the past. History of permanent pacemaker implantation. He is sitting up in the chair. He feels better. Hemodynamically, he is stable. He is feeling stronger. His breathing has been stable, he is denying any chest pain. He denies any dizziness, palpitation. He denies any nausea. His appetite has been stable. He continues to be at this time on aspirin, Lipitor 40 mg daily, Plavix 75 mg daily, losartan 50 mg daily, metoprolol tartrate 25 mg twice a day, and tamsulosin. PHYSICAL EXAMINATION: Blood pressure running in the 130 to 140 with a heart rate in the 70s. LUNGS: Mild decrease in breath sounds, no wheezes. HEART" Irregular rate and rhythm with paced rhythm and a systolic murmur. No rub. ABDOMEN: Soft, nontender. Positive bowel sounds, no organomegaly. EXTREMITIES: No edema. IMPRESSION: 1. Status post coronary artery bypass grafting, stable. 2. Chronic persistent atrial fibrillation. 3. History of permanent pacemaker implantation. 4. Hyperlipidemia. 5. Hypertension. RECOMMENDATION: Patient has a chest tube. I am hopeful that we will be able to pull the chest tube and initiate treatment with anticoagulation as soon as possible in view of his history of chronic persistent atrial fibrillation. Otherwise,will continue his physical activity and continue incentive spirometry and depending on his progress, further recommendation will be made. MMODL / IJN: [id number] /
--- NOTE | 2019-05-12 10:15 | XR ---
EXAMINATION TYPE: XR chest 1V portable DATE OF EXAM: 05/12/2019 COMPARISON: 05/11/2019 HISTORY: Shortness of breath TECHNIQUE: Single frontal view of the chest is obtained. FINDINGS: Cardiac device and postoperative changes seen. Left-sided chest tube noted. No sizable pne umothorax. Subsegmental changes left lung base. IMPRESSION: 1. Stable subsegmental changes at the lung bases felt to be most typical of atelectasis. 2. Stable left-sided chest tube
[2019-05-12 11:58] LABS: Glucose,Whole Blood 192 mg/dL (75-99)
[2019-05-12] MEDS: LOSARTAN 50 MG TAB PO SCH (12:11)
--- NOTE | 2019-05-12 12:54 | P.PN ---
Subjective Progress Note Date: 05/12/19 Principal diagnosis: Triple-vessel coronary artery disease POD #1 quadruple coronary artery bypass grafting using the left internal mammary artery to the ramus intermedius coronary artery sequentially then to the left anterior descending coronary artery, a reverse greater saphenous vein graft from the aorta to the obtuse marginal coronary artery, a reverse greater saphenous vein graft from the aorta to the left ventricular branch of the right coronary artery, a reverse greater saphenous vein graft from the previous graft to the posterior descending coronary artery in a Y fashion. Exclusion of the left atrial appendage using a 45 mm atrial clip. Intraoperative graft flow measurements using the [email or web address] system, endoscopic harvesting of the bilateral greater saphenous vein except below the knee on the right side, intraoperative transesophageal echocardiogram and epi-aortic scanning. Patient was reevaluated today on 05/10/2019, patient is now on room air, extubated last night. Hours after he arrived to the ICU. His postoperative course has been uneventful. Patient is asymptomatic, denies any shortness of breath, he is not requiring any pressors or inotropes. Patient is doing fairly well with incentive spirometry, chest x-ray showed very minimal basilar atele ctasis as expected. Chest tubes were noted. His hemodynamic profile today showed a cardiac index of 2.5, pulmonary artery pressure is 22/10. Patient is again asymptomatic labs were all reviewed. Reevaluated today on 05/11/2019, patient is doing fairly well except for some component of confusion patient seems to be a bit disoriented, and his mental status seems to wax and wane. Patient is in no form of respiratory distress, but again intermittently confused. No cough no wheezing no shortness of breath. Chest x-ray is basically unremarkable except for minimal atelectasis. Hemoglobin today was 6.4 and the patient is receiving a unit of packed RBCs. Patient is hemodynamically stable, not requiring any pressors or inotropes. Reevaluated today on 05/12/2019, patient is doing much better, his mental status is back to normal. Patient is alert oriented 3, he is doing great, denies any specific complaints no cough no wheezing no shortness of breath no chest pain no nausea no vomiting patient is ambulating in hallway with assistance. Hemoglobin improved after transfusion yesterday. 7.4 hemoglobin today. Electrodes are normal renal profile is normal. Chest x-ray showed minimal subsegmental atelectasis. And left-sided chest tube in place. Objective - Vital Signs Vital signs: Vital Signs Temp 98.1 F 05/12/19 12:00 Pulse 73 05/12/19 12:00 Resp 14 05/12/19 12:00 BP 134/69 05/12/19 12:00 Pulse Ox 97 05/12/19 12:00 Intake & Output 05/11/19 05/12/19 05/12/19 18:59 06:59 18:59 Intake Total 802 250 480 Output Total 1610 1105 140 Balance -808 -855 340 Weight 86.2 kg Intake: IV 242 Pressure Bag 12 Sodium Chloride 0.9% 1, 230 000 ml @ 50 mls/hr IV . Q20H [facility] Rx#:[id number] Oral 300 250 480 Blood Product 260 Rc Irr Cpda1 Unit 0 [id number] Output: Chest Tube Drainage 100 230 40 Left Lateral Chest 100 230 40 Urine 1510 875 100 Other: Voiding Method Urinal Urinal Urinal # Voids 1 ABP, PAP, CO, CI - Last Documented Arterial Blood Pressure 135/53 Pulmonary Artery Pressure 23/4 Cardiac Output 5 Cardiac Index 2.5 - Exam Physical Exam: Revealed 74-year-old white male in no distress. Head: Atraumatic, normocephalic. HEENT:[Neck is supple.] [No neck masses.] [No thyromegaly.] [No JVD.] Chest: [Clear throughout, no crackles or rhonchi or wheezes Cardiac Exam: [Normal S1 and S2, no S3 gallop, no murmur.] Abdomen: [Soft, nontender, no megaly, no rebound, no guarding, normal bowel sounds.] Extremities: [No clubbing, no edema, no cyanosis.] Neurological Exam: Alert and oriented 3, no gross focal neurologic deficits. Psychiatric: Normal mood, affect and normal mental status examination Skin: No rashes. - Labs CBC & Chem 7: 05/12/19 04:56 05/12/19 04:56 Labs: Abnormal Lab Results - Last 24 Hours (Table) 05/11/19 05/11/19 05/12/19 Range/Units 17:45 20:30 04:56 RBC 2.41 L (4.30-5.90) m/uL Hgb 7.4 L (13.0-17.5) gm/dL Hct 21.5 L (39.0-53.0) % RDW 16.3 H (11.5-15.5) % Plt Count 145 L (150-450) k/uL Glucose (74-99) mg/dL POC Glucose (mg/dL) 177 H 129 H (75-99) mg/dL Calcium (8.4-10.2) mg/dL Alkaline Phosphatase (38-126) U/L Total Protein (6.3-8.2) g/dL Albumin (3.5-5.0) g/dL 05/12/19 05/12/19 05/12/19 Range/Units 04:56 06:49 11:56 RBC (4.30-5.90) m/uL Hgb (13.0-17.5) gm/dL Hct (39.0-53.0) % RDW (11.5-15.5) % Plt Count (150-450) k/uL Glucose 120 H (74-99) mg/dL POC Glucose (mg/dL) 151 H 192 H (75-99) mg/dL Calcium 8.2 L (8.4-10.2) mg/dL Alkaline Phosphatase 37 L (38-126) U/L Total Protein 5.3 L (6.3-8.2) g/dL Albumin 3.0 L (3.5-5.0) g/dL Assessment and Plan Assessment: impression: 1. Triple-vessel coronary artery disease with left main disease status post quadruple coronary artery bypass grafting surgery postoperative day #3 2 history of chronic atrial fibrillation. 3 history of dyslipidemia. 4 family history of alpha-1 antitrypsin deficiency. 5 significant history of marijuana smoking over the last 27 years. 6 mild left ventricular dysfunction 7 [id number] mitral valve regurgitation 8 family history of premature coronary artery disease. 9 postoperative atelectasis as noted on the chest x-ray, and this is expected. 10 postoperative anemia secondary to blood loss, expected. Patient is receiving a unit of packed RBCs this morning. Recommendation: Continue beta blockers statins Plavix and aspirin. Continue incentive spirometry, and continue bronchodilators. Remove and discontinue unnecessary catheters and lines. Continue insulin management. Avoid narcotics Increase activity as tolerated.. Continue ambulation. Discharge planning is in progress. Time with Patient: Less than 30
--- NOTE | 2019-05-12 14:31 | P.PN ---
Subjective Progress Note Date: 05/12/19 Principal diagnosis: CAD, post CABG, HTN and Hyperlipidemia, mild confusion, COPD 74-year-old male one of my office patient with past medical history of CAD, A. fib, hypertension, hyperlipidemia and previous history of CVA who had the history of pacemaker as well developed to have A. fib with RVR was referred to cardiology and end up going for heart catheter for positive stress test came back with significant 3 vessel disease. Patient initially refused to go for surgery and then was referred to cardiothoracic surgeon in [facility] and ended up schedule elective CABG on 05/09/[address] Pearson. Patient was seen pulmonary had PFT and other testing and prepare for surgery. Patient had 5 vessel bypass surgery successfully was on mechanical ventilation had 2 chest tube otherwise stable was transferred to the ICU. 05/11: Patient is doing very well so far still in ICU sitting in the chair today still have 1 chest tube he has mild arrhythmia mild chest pain and discomfort otherwise doing well he did some physical therapy and hemodynamic is more stable. 05/12: Patient is doing very well is not confused anymore all chest tube are out patient is hemodynamic stable he is not in A. fib today he is ambulating with physical therapy help. I and spit patient discharge between today and early next week. Objective - Vital Signs Vital signs: Vital Signs Temp 98.1 F 05/12/19 12:00 Pulse 75 05/12/19 13:00 Resp 13 05/12/19 13:00 BP 141/74 05/12/19 13:00 Pulse Ox 97 05/12/19 13:00 Intake & Output 05/11/19 05/12/19 05/12/19 18:59 06:59 18:59 Intake Total 802 250 480 Output Total 1610 1105 440 Balance -808 -855 40 Weight 86.2 kg Intake: IV 242 Pressure Bag 12 Sodium Chloride 0.9% 1, 230 000 ml @ 50 mls/hr IV . Q20H [facility] Rx#:[id number] Oral 300 250 480 Blood Product 260 Rc Irr Cpda1 Unit 0 [id number] Output: Chest Tube Drainage 100 230 40 Left Lateral Chest 100 230 40 Urine 1510 875 400 Other: Voiding Method Urinal Urinal Urinal # Voids 1 ABP, PAP, CO, CI - Last Documented Arterial Blood Pressure 135/53 Pulmonary Artery Pressure 23/4 Cardiac Output 5 Cardiac Index 2.5 - Exam Review of Systems CONSTITUTIONAL: Well-developed no acute respiratory distress. EYES: No icterus sclerae, no conjunctivitis. EARS, NOSE, MOUTH, THROAT, and FACE: No sore throat, lymphadenopathy, carotid bruits or deformity. RESPIRATORY: Mild shortness of breath with no cough or wheezes. CARDIOVASCULAR: Positive A. fib, pacemaker, positive stress test and 3 vessel disease. GASTROINTESTINAL: No Abd pain, Nausea or vomiting, no Diarrhea or constipation, No GI Bleed, no distention or masses. GENITOURINARY: Negative for Hematuria or UTI, no kidney stones. INTEGUMENT/BREAST: Negative for any muscular injury with mild osteoarthritis.. HEMATOLOGIC/LYMPHATIC: Negative for bleed or purpura. MUSCULOSKELTAL: Negative for Myalgia or arthralgia. NEURLOGICAL: No LOC, Sz or syncope, blurred vision dizziness or abnormality.. BEHAVIORAL/PSYCH: Negative. ENDOCRINE: Negative. Physical Exam General Appearance: Alert, cooperative, no distress, appears stated age. Neck HEENT: Supple, no lymphadenopathy, no thyroid enlargement, no carotid bruits. Lungs: Clear to auscultation without crackles or wheezes no rhonchi, no deformity. Chest Wall: Chest wall normal expansion with deep inspiration no tenderness and no deformity was found on exam, no costochondral pain or discomfort. Heart: Regular rate and rhythm, S1, S2 normal, no murmur, rub or gallop. Back: Symmetric, no curvature, ROM normal, no CVA tenderness. Abdomen: Soft, non-tender, bowel sounds active all four quadrants, no masses, no organomegaly. Extremities: Extremities normal, atraumatic, no cyanosis or edema. Pulses: 2+ and symmetric. Skin: Skin color, texture, tugor normal, no rashes or lesions. Neurologic: Alert oriented x3 cranial nerves II through XII intact, no motor deficit, no abnormal balance or gait. - Labs CBC & Chem 7: 05/12/19 04:56 05/12/19 04:56 Labs: Abnormal Lab Results - Last 24 Hours (Table) 05/11/19 05/11/19 05/12/19 Range/Units 17:45 20:30 04:56 RBC 2.41 L (4.30-5.90) m/uL Hgb 7.4 L (13.0-17.5) gm/dL Hct 21.5 L (39.0-53.0) % RDW 16.3 H (11.5-15.5) % Plt Count 145 L (150-450) k/uL Glucose (74-99) mg/dL POC Glucose (mg/dL) 177 H 129 H (75-99) mg/dL Calcium (8.4-10.2) mg/dL Alkaline Phosphatase (38-126) U/L Total Protein (6.3-8.2) g/dL Albumin (3.5-5.0) g/dL 05/12/19 05/12/19 05/12/19 Range/Units 04:56 06:49 11:56 RBC (4.30-5.90) m/uL Hgb (13.0-17.5) gm/dL Hct (39.0-53.0) % RDW (11.5-15.5) % Plt Count (150-450) k/uL Glucose 120 H (74-99) mg/dL POC Glucose (mg/dL) 151 H 192 H (75-99) mg/dL Calcium 8.2 L (8.4-10.2) mg/dL Alkaline Phosphatase 37 L (38-126) U/L Total Protein 5.3 L (6.3-8.2) g/dL Albumin 3.0 L (3.5-5.0) g/dL Assessment and Plan Plan: 1 status post CAB vessel coronary artery bypass graft done patient is doing very well off mechanical ventilation and sitting in the chair and very stable and within a medically. 2 advanced CAD: With positive stress test and heart cath, post surgery. 3 A. fib with RVR: Patient pulse rates under control currently patient had procedure done with surgery would probably help to reduce the possibility of thrombus from A. fib. 4 hyperlipidemia: Has been on atorvastatin 80 mg a day continue medication. 5 hypertension: On metoprolol and can benefit from small dose of CHRIS inhibitor. 6 GERD/GI prophylaxis: Patient will be on pantoprazole. 7 BPH: Watch for any urinary retention. 8 mild confusion: Had resolved significantly in the last 24 hours patient is doing well he is alert oriented to time person and place. Patient is doing very well medically advance PTOT and still discussed pos sibility whether he need to go to rehab or not. Patient has been refusing to rehab inpatient he believes he can be discharged home on is ready with home help.
[2019-05-12 16:09] LABS: Glucose,Whole Blood 165 mg/dL (75-99)
[2019-05-12] MEDS: TAMSULOSIN 0.4 MG CAP.ER.24H PO SCH (18:18)
[2019-05-12 21:04] LABS: Glucose,Whole Blood 184 mg/dL (75-99)
[2019-05-12] MEDS: SENNOSIDES-DOCUSATE SODIUM 1 EACH TAB PO SCH (21:08)
[2019-05-13 05:58] LABS: Anisocytosis Slight; HCT 21.5 % (39.0-53.0); HGB 7.3 gm/dL (13.0-17.5); MCH 30.7 pg (25.0-35.0); MCV 90.3 fL (80.0-100.0); Mean Platelet Volume 7.3; Platelet Count 180 k/uL (150-450); RBC 2.38 m/uL (4.30-5.90); RDW 16.6 % (11.5-15.5); WBC 7.9 k/uL (3.8-10.6)
[2019-05-13 06:08] LABS: African American GFR (CKD) >90 (>60 ml/min/1.73 sqM); Anion Gap 7 mmol/L; Blood Urea Nitrogen 21 mg/dL (9-20); Carbon Dioxide 25 mmol/L (22-30); Chloride 106 mmol/L (98-107); Glucose 124 mg/dL (74-99); Non-African American GFR(CKD) >90 (>60 ml/min/1.73 sqM); Potassium 3.8 mmol/L (3.5-5.1); Sodium 138 mmol/L (137-145)
[2019-05-13] MEDS ORDERED: Potassium Replacement Protocol 1 EACH MISC MISCELLANE PRN (06:11)
[2019-05-13] MEDS: KETOROLAC 30 MG/ML 1 ML VIAL IVP SCH ×4 (06:19→23:28)
--- NOTE | 2019-05-13 06:33 | XR ---
EXAMINATION TYPE: XR chest 1V DATE OF EXAM: 05/13/2019 HISTORY: post cardiac surgery. REFERENCE: Previous study dated 05/12/2019. FINDINGS: There has been a midline sternotomy. There is a bipolar pacemaker place on the left. The heart is mildly enlarged. There is minimal bibasilar atelectasis. I could not exclude small, bila teral effusions. IMPRESSION: CONTINUING POSTSURGICAL CHANGE.
[2019-05-13 06:51] LABS: Glucose,Whole Blood 134 mg/dL (75-99)
[2019-05-13] MEDS ORDERED: POTASSIUM CHLORIDE ER 20 MEQ TAB.ER PO SCH (07:00)
[2019-05-13] MEDS: INSULIN ASPART (NovoLOG) 100 UNIT/ML VIAL SQ SCH ×4 (07:09→20:42)
[2019-05-13] MEDS: PANTOPRAZOLE 40 MG TABLET PO SCH (07:10)
[2019-05-13] MEDS: IPRATROPIUM-ALBUTEROL 3 ML NEB INHALATION SCH ×4 (07:21→21:43)
--- NOTE | 2019-05-13 08:36 | P.PN ---
<Lauren Escobar - Last Filed: 05/13/19 09:12> Subjective Progress Note Date: 05/13/19 Principal diagnosis: Triple-vessel coronary artery disease with left main disease, mild left ventricular dysfunction, mild to moderate mitral valve regurgitation, chronic atrial fibrillation on Eliquis for anticoagulation, status post dual-chamber pacemaker, history of TIA. History of hypertension, hyperlipidemia, previous tobacco dependence, daily marijuana use, syncope 5 years ago, and family history of premature coronary artery disease and alpha-1 antitrypsin deficiency. POD #4 quintuple coronary artery bypass grafting using the left internal mammary artery to the ramus intermedius artery sequentially then to the left anterior descending artery, reverse saphenous vein graft from the aorta to the obtuse marginal artery, reverse saphenous vein graft from the aorta to the left ventricular branch of the right coronary artery, reverse saphenous vein graft from the previous graft to the posterior descending artery in a Y fashion. Exclusion of the left atrial appendage using a 45 mm AtriClip. Intraoperative graft flow measurements using the [employer] system. Endoscopic harvesting of the bilateral greater saphenous vein except below the knee on the right side. Intraoperative transesophageal echocardiogram and epi-aortic scanning. Postoperative acute blood loss anemia, expected secondary to cardiopulmonary bypass and hemodilution Postoperative confusion, unexpected, unsure of etiology, resolved The patient's currently sitting up in a recliner in the intensive care unit in no acute distress. Patient remains alert and oriented 3, did sleep well last night. Denies any pain, shortness of breath. Hemodynamically stable on no inotropes or pressors. Ambulated in hallway with assistance multiple times yesterday. Transfer orders were placed for [address] [place] [address] cardiac stepdown unit yester day, no beds available. No new concerns. Objective - Vital Signs Vital signs: Vital Signs Temp 98.1 F 05/13/19 04:00 Pulse 75 05/13/19 07:40 Resp 14 05/13/19 04:00 BP 130/66 05/13/19 04:00 Pulse Ox 96 05/13/19 04:00 Intake & Output 05/12/19 05/13/19 05/13/19 18:59 06:59 18:59 Intake Total 580 200 Output Total 640 300 Balance -60 -100 Weight 87 kg Intake: Oral 580 200 Output: Chest Tube Drainage 40 Left Lateral Chest 40 Urine 600 300 Other: Voiding Method Urinal Toilet Urinal ABP, PAP, CO, CI - Last Documented Arterial Blood Pressure 135/53 Pulmonary Artery Pressure 23/4 Cardiac Output 5 Cardiac Index 2.5 - Constitutional General appearance: Present: cooperative, no acute distress - Respiratory Details: Lungs sounds diminished bilaterally. Respirations even, nonlabored. Currently on room air with oxygen saturation 96%. Able to achieve 2500 mL on his incentive spirometry. Strong cough. - Cardiovascular Details: S1, S2 present. Irregular rate and rhythm, ventricular paced on telemetry. Sternum stable. Palpable peripheral pulses bilaterally. Trace generalized e radha present. No calf pain or tenderness noted. Heart hugger in place with patient demonstrating appropriate use with encouragement. Antiembolism stockings, SCDs present. - Gastrointestinal Gastrointestinal Comment(s): Abdomen soft, nontender, nondistended. Active bowel sounds present 4 quadrants. Tolerating diet. Positive bowel movement. - Genitourinary Genitourinary Comment(s): Continues to void clear, yellow urine. - Integumentary Integumentary Comment(s): Skin is warm and dry with evidence of good perfusion. Anterior chest incision well approximated and covered with dry intact dressing. Bilateral lower extremity EVH sites well approximated. - Neurologic Neurologic: Present: CNII-XII intact - Musculoskeletal Musculoskeletal: Present: gait normal, strength equal bilaterally - Psychiatric Psychiatric: Present: A&O x's 3, appropriate affect, intact judgment & insight - Allied health notes Allied health notes reviewed: nursing - Labs CBC & Chem 7: 05/13/19 05:20 05/13/19 05:20 Labs: Abnormal Lab Results - Last 24 Hours (Table) 05/12/19 05/12/19 05/12/19 Range/Units 11:56 16:09 21:02 RBC (4.30-5.90) m/uL Hgb (13.0-17.5) gm/dL Hct (39.0-53.0) % RDW (11.5-15.5) % BUN (9-20) mg/dL Glucose (74-99) mg/dL POC Glucose (mg/dL) 192 H 165 H 184 H (75-99) mg/dL Calcium (8.4-10.2) mg/dL 05/13/19 05/13/19 05/13/19 Range/Units 05:20 05:20 06:49 RBC 2.38 L (4.30-5.90) m/uL Hgb 7.3 L (13.0-17.5) gm/dL Hct 21.5 L (39.0-53.0) % RDW 16.6 H (11.5-15.5) % BUN 21 H (9-20) mg/dL Glucose 124 H (74-99) mg/dL POC Glucose (mg/dL) 134 H (75-99) mg/dL Calcium 8.0 L (8.4-10.2) mg/dL - Imaging and Cardiology Chest x-ray: report reviewed, image reviewed Assessment and Plan Assessment: 1. Triple-vessel coronary artery disease with left main disease, status post quadruple coronary artery bypass grafting surgery 2. Mild left ventricular dysfunction 3. Mild to moderate mitral valve regurgitation 4. Chronic atrial fibrillation on Eliquis for anticoagulation preoperatively, status post exclusion left atrial appendage 5. History of dual-chamber permanent pacemaker placement 6. History of TIA 7. Hypertension 8. Hyperlipidemia 9. Daily marijuana use 10. Previous tobacco dependence 11. History of syncope 5 years ago 12. Family history for premature coronary artery disease and alpha-1 antitrypsin deficiency 13. Postoperative acute blood loss anemia Plan: 1. Continue to optimize medical management with low-dose aspirin, statin, Cozaar and beta davida. Will increase beta davida therapy as tolerated. Eliquis restarted today. 2. Encourage use of incentive spirometry every hour while awake. Bronchodilators per pulmonary management. 3. Increase activity, ambulate as tolerated. PT/OT/cardiac rehab following 4. Will monitor daily chest x-rays and labs. Electrolyte replacement per protocol. No further blood transfusions 5. Insulin management per primary care service. 6. Pain control with current medication regimen. Avoid narcotics 7. GI/DVT prophylaxis. 8. Will give 40 mg IV Lasix today. 9. Transfer orders placed for 3 S. cardiac stepdown unit yesterday, may trans carlos when bed available 10. Patient should receive first postoperative shower today. 11. Discharge planning in progress. Likely will discharge to home with home care tomorrow 12. More recommendations to follow based on patient's clinical course. Time with Patient: Greater than 30 <Mili Rain - Last Filed: 05/13/19 11:07> Objective - Vital Signs Vital signs: Vital Signs Temp 98.6 F 05/13/19 08:00 Pulse 70 05/13/19 08:00 Resp 14 05/13/19 08:00 BP 124/68 05/13/19 08:00 Pulse Ox 96 05/13/19 04:00 Intake & Output 05/12/19 05/13/19 05/13/19 18:59 06:59 18:59 Intake Total 580 200 240 Output Total 640 300 Balance -60 -100 240 Weight 87 kg Intake: Oral 580 200 240 Output: Chest Tube Drainage 40 Left Lateral Chest 40 Urine 600 300 Other: Voiding Method Urinal Toilet Urinal ABP, PAP, CO, CI - Last Documented Arterial Blood Pressure 135/53 Pulmonary Artery Pressure 23/4 Cardiac Output 5 Cardiac Index 2.5 - Labs CBC & Chem 7: 05/13/19 05:20 05/13/19 05:20 Labs: Abnormal Lab Results - Last 24 Hours (Table) 05/12/19 05/12/19 05/12/19 Range/Units 11:56 16:09 21:02 RBC (4.30-5.90) m/uL Hgb (13.0-17.5) gm/dL Hct (39.0-53.0) % RDW (11.5-15.5) % BUN (9-20) mg/dL Glucose (74-99) mg/dL POC Glucose (mg/dL) 192 H 165 H 184 H (75-99) mg/dL Calcium (8.4-10.2) mg/dL 05/13/19 05/13/19 05/13/19 Range/Units 05:20 05:20 06:49 RBC 2.38 L (4.30-5.90) m/uL Hgb 7.3 L (13.0-17.5) gm/dL Hct 21.5 L (39.0-53.0) % RDW 16.6 H (11.5-15.5) % BUN 21 H (9-20) mg/dL Glucose 124 H (74-99) mg/dL POC Glucose (mg/dL) 134 H (75-99) mg/dL Calcium 8.0 L (8.4-10.2) mg/dL Assessment and Plan Assessment: patient S/P [id number]
[2019-05-13] MEDS: ATORVASTATIN 40 MG TAB PO SCH (08:55)
[2019-05-13] MEDS: METOPROLOL TARTRATE 25 MG TAB PO SCH ×2 (08:55→20:37)
[2019-05-13] MEDS: APIXABAN 5 MG TAB PO SCH ×2 (08:55→20:38)
[2019-05-13] MEDS: ASPIRIN 81 MG PO SCH (08:55)
--- NOTE | 2019-05-13 11:31 | P.PN ---
Subjective Progress Note Date: 05/13/19 74-year-old male one of my office patient with past medical history of CAD, A. fib, hypertension, hyperlipidemia and previous history of CVA who had the history of pacemaker as well developed to have A. fib with RVR was referred to cardiology and end up going for heart catheter for positive stress test came back with significant 3 vessel disease. Patient initially refused to go for surgery and then was referred to cardiothoracic surgeon in [facility] and ended up schedule elective CABG on 05/09/[address] Pearson. Patient was seen pulmonary had PFT and other testing and prepare for surgery. Patient had 5 vessel bypass surgery successfully was on mechanical ventilation had 2 chest tube otherwise stable was transferred to the ICU. 05/10: Patient has been successfully extubated. He is found sitting in recliner and appears to be comfortable. Patient has not required any vasopressors. He is using his incentive spirometry. Chest tubes are in place. He is on insulin drip at 2.5 units per hour. Patient was a bit groggy this morning and primary discontinued [place]. Patient is awake and alert at the time of this evaluation. He has been afebrile, heart rate 60s, blood pressure 159/52 and pulse ox 97% on room air. Hemoglobin 7.3 with white count 15.0 and platelet count 132. Creati nine 0.62. Blood sugars running between 134-163. Patient has been evaluated by physical therapy with recommendations for inpatient rehab. 05/11: Patient is doing very well so far still in ICU sitting in the chair today still have 1 chest tube he has mild arrhythmia mild chest pain and discomfort o therwise doing well he did some physical therapy and hemodynamic is more stable. 05/12: Patient is doing very well is not confused anymore all chest tube are out patient is hemodynamic stable he is not in A. fib today he is ambulating with physical therapy help. I and spit patient discharge between today and early next week 05/13: Repeat chest x-ray has been stable with minimal bibasilar atelectasis. Possible small bilateral effusions. Patient remains in intensive care unit. He has been afebrile, heart rate in the 60s and 70s, blood pressure 130/66, pulse ox 96% on room air. Repeat lab work reveals hemoglobin of 7.3, creatinine 0.71. Blood sugars running between 124 and 184. He is currently on insulin scale. Patient is reaching 2700 on incentive spirometry. registered radiologic technologist is vent ricular paced rhythm. Patient states he has been ambulating in the hallway. He did have his first bowel movement last evening. He also states that the wound to his right thigh is opened, dressing in place and stable. Discharge plan is home with [facility] tomorrow. Objective - Vital Signs Vital signs: Vital Signs Temp 98.1 F 05/13/19 04:00 Pulse 75 05/13/19 07:40 Resp 14 05/13/19 04:00 BP 130/66 05/13/19 04:00 Pulse Ox 96 05/13/19 04:00 Intake & Output 05/12/19 05/13/19 05/13/19 18:59 06:59 18:59 Intake Total 580 200 Output Total 640 300 Balance -60 -100 Weight 87 kg Intake: Oral 580 200 Output: Chest Tube Drainage 40 Left Lateral Chest 40 Urine 600 300 Other: Voiding Method Urinal Toilet Urinal ABP, PAP, CO, CI - Last Documented Arterial Blood Pressure 135/53 Pulmonary Artery Pressure 23/4 Cardiac Output 5 Cardiac Index 2.5 - Exam CONSTITUTIONAL: Well-developed no acute respiratory distress. EYES: No icterus sclerae, no conjunctivitis. EARS, NOSE, MOUTH, THROAT, and FACE: No sore throat, lymphadenopathy, carotid bruits or deformity. RESPIRATORY: Mild shortness of breath with no cough or wheezes. CARDIOVASCULAR: Positive A. fib, pacemaker, positive stress test and 3 vessel disease. GASTROINTESTINAL: No Abd pain, no Nausea or vomiting, no Diarrhea or constipation, No GI Bleed, no distention or masses. GENITOURINARY: Negative for Hematuria or UTI, no kidney stones. INTEGUMENT/BREAST: Negative for any muscular injury with mild osteoarthritis.. HEMATOLOGIC/LYMPHATIC: Negative for bleed or purpura. MUSCULOSKELTAL: Negative for Myalgia or arthralgia. NEURLOGICAL: No LOC, Sz or syncope, blurred vision dizziness or abnormality.. BEHAVIORAL/PSYCH: Negative. ENDOCRINE: Negative. Physical Exam General Appearance: Alert, cooperative, no distress, appears stated age. Neck HEENT: Supple, no lymphadenopathy, no thyroid enlargement, no carotid bruits. Lungs: Clear to auscultation without crackles or wheezes no rhonchi, no deformity. Chest Wall: Chest wall normal expansion with deep inspiration no tenderness and no deformity was found on exam, no costochondral pain or discomfort. Heart: Regular rate and rhythm, S1, S2 normal, no murmur, rub or gallop. Back: Symmetric, no curvature, ROM normal, no CVA tenderness. Abdomen: Soft, non-tender, bowel sounds active all four quadrants, no masses, no organomegaly. Extremities: Extremities normal, atraumatic, no cyanosis or edema. Pulses: 2+ and symmetric. Skin: Skin color, texture, tugor normal, no rashes or lesions. Neurologic: Alert oriented x3 cranial nerves II through XII intact, no motor deficit, no abnormal balance or gait. - Labs CBC & Chem 7: 05/13/19 05:20 05/13/19 05:20 Labs: Abnormal Lab Results - Last 24 Hours (Table) 05/12/19 05/12/19 05/12/19 Range/Units 11:56 16:09 21:02 RBC (4.30-5.90) m/uL Hgb (13.0-17.5) gm/dL Hct (39.0-53.0) % RDW (11.5-15.5) % BUN (9-20) mg/dL Glucose (74-99) mg/dL POC Glucose (mg/dL) 192 H 165 H 184 H (75-99) mg/dL Calcium (8.4-10.2) mg/dL 05/13/19 05/13/19 05/13/19 Range/Units 05:20 05:20 06:49 RBC 2.38 L (4.30-5.90) m/uL Hgb 7.3 L (13.0-17.5) gm/dL Hct 21.5 L (39.0-53.0) % RDW 16.6 H (11.5-15.5) % BUN 21 H (9-20) mg/dL Glucose 124 H (74-99) mg/dL POC Glucose (mg/dL) 134 H (75-99) mg/dL Calcium 8.0 L (8.4-10.2) mg/dL Assessment and Plan Plan: 1. Coronary artery disease status post CAB vessel coronary artery bypass graft, status post extubation. Continue aspirin, Lipitor, Lopressor 25 mg twice daily 2. Advanced CAD: With positive stress test and heart cath, post surgery. 3. Chronic atrial fibrillation, status post permanent pacemaker implantation. Continue eliquis, Lopressor 4. Hyperlipidemia: Has been on atorvastatin 80 mg a day continue medication. 5. Hypertension: On metoprolol and can benefit from small dose of CHRIS i nhibitor. 6. GERD/GI prophylaxis: Patient will be on pantoprazole. 7. BPH: Watch for any urinary retention. 8. DVT prophylaxis: Patient is on heparin 5000 units subcutaneous every 8 hours. 9. Prediabetic. Patient is currently on NovoLog scale. Hemoglobin A1c is 6.0. CODE STATUS: Full code. Discharge plan: Home with [facility] tomorrow Impression and plan of care have been directed as dictated by the signing physician. Dee Hatfield nurse practitioner acting as scribe for signing physician.
[2019-05-13 12:01] LABS: Glucose,Whole Blood 165 mg/dL (75-99)
[2019-05-13] MEDS: LOSARTAN 50 MG TAB PO SCH (12:05)
--- NOTE | 2019-05-13 13:01 | P.PN ---
Subjective Progress Note Date: 05/13/19 Principal diagnosis: Triple-vessel coronary artery disease POD #1 quadruple coronary artery bypass grafting using the left internal mammary artery to the ramus intermedius coronary artery sequentially then to the left anterior descending coronary artery, a reverse greater saphenous vein graft from the aorta to the obtuse marginal coronary artery, a reverse greater saphenous vein graft from the aorta to the left ventricular branch of the right coronary artery, a reverse greater saphenous vein graft from the previous graft to the posterior descending coronary artery in a Y fashion. Exclusion of the left atrial appendage using a 45 mm atrial clip. Intraoperative graft flow measurements using the [employer] system, endoscopic harvesting of the bilateral greater saphenous vein except below the knee on the right side, intraoperative transesophageal echocardiogram and epi-aortic scanning. Patient was reevaluated today on 05/10/2019, patient is now on room air, extubated last night. Hours after he arrived to the ICU. His postoperative course has been uneventful. Patient is asymptomatic, denies any shortness of breath, he is not requiring any pressors or inotropes. Patient is doing fairly well with incentive spirometry, chest x-ray showed very minimal basilar atele ctasis as expected. Chest tubes were noted. His hemodynamic profile today showed a cardiac index of 2.5, pulmonary artery pressure is 22/10. Patient is again asymptomatic labs were all reviewed. Reevaluated today on 05/11/2019, patient is doing fairly well except for some component of confusion patient seems to be a bit disoriented, and his mental status seems to wax and wane. Patient is in no form of respiratory distress, but again intermittently confused. No cough no wheezing no shortness of breath. Chest x-ray is basically unremarkable except for minimal atelectasis. Hemoglobin today was 6.4 and the patient is receiving a unit of packed RBCs. Patient is hemodynamically stable, not requiring any pressors or inotropes. Reevaluated today on 05/12/2019, patient is doing much better, his mental status is back to normal. Patient is alert oriented 3, he is doing great, denies any specific complaints no cough no wheezing no shortness of breath no chest pain no nausea no vomiting patient is ambulating in hallway with assistance. Hemoglobin improved after transfusion yesterday. 7.4 hemoglobin today. Electrodes are normal renal profile is normal. Chest x-ray showed minimal subsegmental atelectasis. And left-sided chest tube in place. Reevaluated today on 05/13/2019, patient continues to do well, basically asymptomatic. He is postoperative day #4,quintuple coronary artery bypass grafting using the left internal mammary artery to the ramus intermedius artery sequentially then to the left anterior descending artery, reverse saphenous vein graft from the aorta to the obtuse marginal artery, reverse saphenous vein graft from the aorta to the left ventricular branch of the right coronary artery, reverse saphenous vein graft from the previous graft to the posterior descending artery in a Y fashion. Exclusion of the left atrial appendage using a 45 mm AtriClip. Intraoperative graft flow measurements using the [employer] system. Endoscopic harvesting of the bilateral greater saphenous vein except below the knee on the right side. Intraoperative transesophageal echocardiogram and epi- aortic scanning. Presently he is in bed, on room air, doing great. No issues overnight, no hemodynamic problems, and the patient is not requiring any pressors or inotropes. Hemoglobin is holding at 7.3, it was 7.4 yesterday post a unit of packed RBCs. Chest x-ray showed mostly minimal bibasilar atelectasis, and postsurgical changes Objective - Vital Signs Vital signs: Vital Signs Temp 98.1 F 05/13/19 12:00 Pulse 69 05/13/19 12:32 Resp 14 05/13/19 12:00 BP 106/53 05/13/19 12:00 Pulse Ox 96 05/13/19 12:00 Intake & Output 05/12/19 05/13/19 05/13/19 18:59 06:59 18:59 Intake Total 580 200 240 Output Total 640 300 200 Balance -60 -100 40 Weight 87 kg Intake: Oral 580 200 240 Output: Chest Tube Drainage 40 Left Lateral Chest 40 Urine 600 300 200 Other: Voiding Method Urinal Toilet Urinal ABP, PAP, CO, CI - Last Documented Arterial Blood Pressure 135/53 Pulmonary Artery Pressure 23/4 Cardiac Output 5 Cardiac Index 2.5 - Exam Physical Exam: Revealed 74-year-old white male in no distress. Head: Atraumatic, normocephalic. HEENT:[Neck is supple.] [No neck masses.] [No thyromegaly.] [No JVD.] Chest: [Clear throughout, no crackles or rhonchi or wheezes Cardiac Exam: [Normal S1 and S2, no S3 gallop, no murmur.] Abdomen: [Soft, nontender, no megaly, no rebound, no guarding, normal bowel sounds.] Extremities: [No clubbing, no edema, no cyanosis.] Neurological Exam: Alert and oriented 3, no gross focal neurologic deficits. Psychiatric: Normal mood, affect and normal mental status examination Skin: No rashes. - Labs CBC & Chem 7: 05/13/19 05:20 05/13/19 05:20 Labs: Abnormal Lab Results - Last 24 Hours (Table) 05/12/19 05/12/19 05/13/19 Range/Units 16:09 21:02 05:20 RBC 2.38 L (4.30-5.90) m/uL Hgb 7.3 L (13.0-17.5) gm/dL Hct 21.5 L (39.0-53.0) % RDW 16.6 H (11.5-15.5) % BUN (9-20) mg/dL Glucose (74-99) mg/dL POC Glucose (mg/dL) 165 H 184 H (75-99) mg/dL Calcium (8.4-10.2) mg/dL 05/13/19 05/13/19 05/13/19 Range/Units 05:20 06:49 11:59 RBC (4.30-5.90) m/uL Hgb (13.0-17.5) gm/dL Hct (39.0-53.0) % RDW (11.5-15.5) % BUN 21 H (9-20) mg/dL Glucose 124 H (74-99) mg/dL POC Glucose (mg/dL) 134 H 165 H (75-99) mg/dL Calcium 8.0 L (8.4-10.2) mg/dL Assessment and Plan Assessment: impression: 1.Triple-vessel coronary artery disease with left main disease status post quadruple coronary artery bypass grafting surgery postoperative day #4 2 history of chronic atrial fibrillation. 3 history of dyslipidemia. 4 family history of alpha-1 antitrypsin deficiency., However the patient tested negative. 5 significant history of marijuana smoking over the last 27 years. 6 mild left ventricular dysfunction 7 [id number] mitral valve regurgitation 8 family history of premature coronary artery disease. 9 postoperative atelectasis as noted on the chest x-ray, and this is expected. 10 postoperative anemia secondary to blood loss, expected. Patient is receiving a unit of packed RBCs this morning. Recommendation: Continue beta blockers statins Plavix and aspirin. Continue incentive spirometry, and continue bronchodilators. Avoid narcotics Increase activity as tolerated.. Continue ambulation. Discharge planning is in progress. Likely in the next 24 hours the patient will be discharged home Time with Patient: Less than 30
--- NOTE | 2019-05-13 14:23 | PN ---
PROGRESS NOTE This patient is status post coronary artery bypass surgery with the ELDER graft to the LAD and the ELDER graft to the ramus intermediate branch and then to the LAD, saphenous vein graft to the obtuse marginal branch and saphenous vein graft to the right coronary artery as well as posterior descending artery. The patient remains stable. She is sitting in a chair. No respiratory distress is noted. Physical examination reveals patient's vital signs to be stable. Blood pressure is 120/80 mmHg. First and second heart sounds are normal. Lungs are clear to auscultation and percussion. Sternum is stable. There is no evidence of any leg edema. FINAL IMPRESSION: This patient is status post coronary artery bypass surgery. The patient is in chronic atrial fibrillation, currently being anticoagulated with Eliquis. Patient also has a history of a dual-chamber pacemaker placement. Patient remains stable cardiac correia. Patient is supposed to go home tomorrow. MMODL / IJN: [id number] /
[2019-05-13 16:41] LABS: Glucose,Whole Blood 140 mg/dL (75-99)
[2019-05-13] MEDS: TAMSULOSIN 0.4 MG CAP.ER.24H PO SCH (17:37)
[2019-05-13] MEDS: SENNOSIDES-DOCUSATE SODIUM 1 EACH TAB PO SCH (20:38)
[2019-05-13 20:40] LABS: Glucose,Whole Blood 142 mg/dL (75-99)
[2019-05-14] MEDS: KETOROLAC 30 MG/ML 1 ML VIAL IVP SCH (05:25)
[2019-05-14 05:55] LABS: Anisocytosis Slight; HCT 21.2 % (39.0-53.0); HGB 7.1 gm/dL (13.0-17.5); MCH 30.5 pg (25.0-35.0); MCHC 33.4 g/dL (31.0-37.0); MCV 91.3 fL (80.0-100.0); Platelet Count 213 k/uL (150-450); Poikilocytosis Slight; RBC 2.32 m/uL (4.30-5.90); WBC 7.5 k/uL (3.8-10.6)
[2019-05-14 06:19] LABS: African American GFR (CKD) >90 (>60 ml/min/1.73 sqM); Anion Gap 3 mmol/L; Blood Urea Nitrogen 22 mg/dL (9-20); Calcium 8.2 mg/dL (8.4-10.2); Carbon Dioxide 26 mmol/L (22-30); Chloride 108 mmol/L (98-107); Glucose 105 mg/dL (74-99); Magnesium 2.1 mg/dL (1.6-2.3); Non-African American GFR(CKD) 87 (>60 ml/min/1.73 sqM); Potassium 4.4 mmol/L (3.5-5.1); Sodium 137 mmol/L (137-145)
[2019-05-14 06:25] LABS: Glucose,Whole Blood 144 mg/dL (75-99)
[2019-05-14] MEDS: INSULIN ASPART (NovoLOG) 100 UNIT/ML VIAL SQ SCH (06:38)
[2019-05-14] MEDS: PANTOPRAZOLE 40 MG TABLET PO SCH (06:39)
[2019-05-14 06:51] VITALS: BP 139/73
[2019-05-14] MEDS ORDERED: KETOROLAC 30 MG/ML 1 ML VIAL IVP PRN (07:14)
--- NOTE | 2019-05-14 07:22 | XR ---
EXAMINATION TYPE: XR chest 2V DATE OF EXAM: 05/14/2019 HISTORY: post cardiac surgery. REFERENCE: Previous study dated 05/13/2019. FINDINGS: There has been a midline sternotomy. There is a bipolar pacemaker place on the left. Lung volumes are prominent. There are patchy bibasilar infiltrates. Heart size upper limits of normal . I suspect a small left effusion. IMPRESSION: 1. PATCHY BILATERAL INFILTRATES. 2. SMALL LEFT EFFUSION. 3. MILD CARDIOMEGALY. 4. I SUSPECT SOME UNDERLYING COPD.
[2019-05-14] MEDS ORDERED: FERROUS SULFATE 325 MG TAB PO SCH (07:30)
[2019-05-14] MEDS ORDERED: ASCORBIC ACID 500 MG TAB PO SCH (07:30)
--- NOTE | 2019-05-14 08:11 | P.PN ---
Subjective Progress Note Date: 05/14/19 Principal diagnosis: Triple-vessel coronary artery disease with left main disease, mild left ventricular dysfunction, mild to moderate mitral valve regurgitation, chronic atrial fibrillation on Eliquis for anticoagulation, status post dual-chamber pacemaker, history of TIA. History of hypertension, hyperlipidemia, previous tobacco dependence, daily marijuana use, syncope 5 years ago, and family history of premature coronary artery disease and alpha-1 antitrypsin deficiency. POD #5 quintuple coronary artery bypass grafting using the left internal mammary artery to the ramus intermedius artery sequentially then to the left anterior descending artery, reverse saphenous vein graft from the aorta to the obtuse marginal artery, reverse saphenous vein graft from the aorta to the left ventricular branch of the right coronary artery, reverse saphenous vein graft from the previous graft to the posterior descending artery in a Y fashion. Exclusion of the left atrial appendage using a 45 mm AtriClip. Intraoperative graft flow measurements using the [employer] system. Endoscopic harvesting of the bilateral greater saphenous vein except below the knee on the right side. I ntraoperative transesophageal echocardiogram and epi-aortic scanning. Postoperative acute blood loss anemia, expected secondary to cardiopulmonary bypass and hemodilution Postoperative confusion, unexpected, unsure of etiology, resolved The patient's currently sitting up in a recliner in the intensive care unit in no acute distress. Patient continues to remain alert and oriented 3, slept well again last night. Denies any pain, shortness of breath. Hemodynamically stable. Ambulated in hallway with assistance multiple times yesterday. Had first postoperative shower this morning and tolerated well. Transfer orders were placed for 3 [facility] cardiac stepdown unit, no beds available. No new concerns. Objective - Vital Signs Vital signs: Vital Signs Temp 98.7 F 05/14/19 04:00 Pulse 93 05/14/19 06:00 Resp 41 H 05/14/19 06:00 BP 139/73 05/14/19 06:00 Pulse Ox 97 05/14/19 04:00 Intake & Output 05/13/19 05/14/19 05/14/19 18:59 06:59 18:59 Intake Total 480 1000 Output Total 300 475 Balance 180 525 Weight 90.8 kg Intake: Oral 480 1000 Output: Urine 300 475 Other: Voiding Method Toilet Toilet Urinal Urinal # Voids 1 ABP, PAP, CO, CI - Last Documented Arterial Blood Pressure 135/53 Pulmonary Artery Pressure 23/4 Cardiac Output 5 Cardiac Index 2.5 - Constitutional General appearance: Present: cooperative, no acute distress - Respiratory Details: Lungs sounds diminished bilaterally. Respirations even, nonlabored. Currently on room air with oxygen saturation 97%. Able to achieve 3000 mL on his incentive spirometry. Strong cough. - Cardiovascular Details: S1, S2 present. Irregular rate and rhythm, ventricular paced on telemetry. Sternum stable. Palpable peripheral pulses bilaterally. Trace generalized edema present. No calf pain or tenderness noted. Heart hugger in place with patient demonstrating appropriate use with encouragement. Antiembolism stockings, SCDs present. - Gastrointestinal Gastrointestinal Comment(s): Abdomen soft, nontender, nondistended. Active bowel sounds present 4 quadrants. Tolerating diet. Positive bowel movement. - Genitourinary Genitourinary Comment(s): Continues to void clear, yellow urine. - Integumentary Integumentary Comment(s): Skin is warm and dry with evidence of good perfusion. Anterior chest incision well approximated and covered with dry intact dressing. Bilateral lower extremity EVH sites well approximated although right lower extremity EVH site at the knee has been draining serosanguineous drainage, enough to need dressing changes, expected due to patient's being on Eliquis. - Neurologic Neurologic: Present: CNII-XII intact - Musculoskeletal Musculoskeletal: Present: gait normal, strength equal bilaterally - Psychiatric Psychiatric: Present: A&O x's 3, appropriate affect, intact judgment & insight - Allied health notes Allied health notes reviewed: nursing - Labs CBC & Chem 7: 05/14/19 05:14 05/14/19 05:14 Labs: Abnormal Lab Results - Last 24 Hours (Table) 05/13/19 05/13/19 05/13/19 Range/Units 11:59 16:39 20:39 RBC (4.30-5.90) m/uL Hgb (13.0-17.5) gm/dL Hct (39.0-53.0) % RDW (11.5-15.5) % Chloride (98-107) mmol/L BUN (9-20) mg/dL Glucose (74-99) mg/dL POC Glucose (mg/dL) 165 H 140 H 142 H (75-99) mg/dL Calcium (8.4-10.2) mg/dL 05/14/19 05/14/19 05/14/19 Range/Units 05:14 05:14 06:23 RBC 2.32 L (4.30-5.90) m/uL Hgb 7.1 L (13.0-17.5) gm/dL Hct 21.2 L (39.0-53.0) % RDW 17.0 H (11.5-15.5) % Chloride 108 H (98-107) mmol/L BUN 22 H (9-20) mg/dL Glucose 105 H (74-99) mg/dL POC Glucose (mg/dL) 144 H (75-99) mg/dL Calcium 8.2 L (8.4-10.2) mg/dL - Imaging and Cardiology Chest x-ray: report reviewed, image reviewed Assessment and Plan Assessment: 1. Triple-vessel coronary artery disease with left main disease, status post quadruple coronary artery bypass grafting surgery 2. Mild left ventricular dysfunction 3. Mild to moderate mitral valve regurgitation 4. Chronic atrial fibrillation on Eliquis for anticoagulation preoperatively, status post exclusion left atrial appendage 5. History of dual-chamber permanent pacemaker placement 6. History of TIA 7. Hypertension 8. Hyperlipidemia 9. Daily marijuana use 10. Previous tobacco dependence 11. History of syncope 5 years ago 12. Family history for premature coronary artery disease and alpha-1 antitrypsin deficiency 13. Postoperative acute blood loss anemia Plan: 1. Continue to optimize medical management with low-dose aspirin, statin, Cozaar and beta davida. Continue Eliquis for anticoagulation. 2. Encourage use of incentive spirometry every hour while awake. Bronchodilators per pulmonary management. 3. Increase activity, ambulate as tolerated. PT/OT/cardiac rehab following 4. Will monitor chest x-rays and labs. No further blood transfusions 5. Insulin management per primary care service. 6. Pain control with current medication regimen. Avoid narcotics 7. GI/DVT prophylaxis. 8. Discharge planning in progress. Will discharge to home with home care later today 9. More recommendations to follow based on patient's clinical course. Time with Patient: Greater than 30
[2019-05-14 08:23] VITALS: RESP 17; TEMP 98
[2019-05-14] MEDS: ATORVASTATIN 40 MG TAB PO SCH (08:27)
[2019-05-14] MEDS: ASPIRIN 81 MG PO SCH (08:27)
[2019-05-14] MEDS: APIXABAN 5 MG TAB PO SCH (08:27)
[2019-05-14] MEDS: METOPROLOL TARTRATE 25 MG TAB PO SCH (08:28)
[2019-05-14] MEDS: IPRATROPIUM-ALBUTEROL 3 ML NEB INHALATION SCH ×3 (08:32→15:38)
[2019-05-14 08:48] VITALS: PULSE 73
--- NOTE | 2019-05-14 08:55 | P.DS ---
Providers Date of admission: 05/09/19 05:34 Expected date of discharge: 05/14/19 Attending physician: Mili Rain Consults: 05/09/19 15:26 Consult Physician Routine Consulting Provider: Ben Bustillos Consult Reason/Comments: Head Cager Consult: post cardiac surgery Do you want consulting provider notified?: Yes Consult Physician Routine Consulting Provider: Robert Wheat Consult Reason/Comments: medical managment Do you want consulting provider notified?: Yes Consult Physician Routine Consulting Provider: Gillian Benitez Consult Reason/Comments: Lead Inspector Consult: post cardiac surgery Do you want consulting provider notified?: Yes 05/11/19 08:35 Consult Physician Routine Consulting Provider: Mao Hernandez Consult Reason/Comments: inpatient rehab Do you want consulting provider notified?: Yes Primary care physician: [facility] Course: FINAL DIAGNOSIS: 1. Triple-vessel coronary artery disease with left main disease 2. Mild left ventricular dysfunction 3. Mild to moderate mitral valve regurgitation 4. Chronic atrial fibrillation on Eliquis for anticoagulation 5. History of dual-chamber permanent pacemaker 6. History of TIA 7. Hypertension 8. Hyperlipidemia 9. Daily marijuana use 10. Previous tobacco dependence 11. History of syncope 12. Family history of premature coronary artery disease and alpha 1 anti-trypsin deficiency 13. Postoperative acute blood loss anemia 14. Postoperative confusion PRINCIPAL PROCEDURE: 1. Quintuple coronary artery bypass grafting using the left internal mammary artery to the ramus intermedius artery sequentially then to the left anterior descending artery, reverse saphenous vein graft from the aorta to the obtuse marginal artery, reverse saphenous vein graft from the aorta to the left ventricular branch of the right coronary artery, reverse saphenous vein graft from the previous graft to the posterior descending artery in a Y fashion 2. Exclusion of the left atrial appendage using a 45 mm AtriClip 3. Intraoperative graft flow measurements using the [employer] system 4. Endoscopic harvesting of the bilateral greater saphenous veins except below the knee on the right side 5. Intraoperative transesophageal echocardiogram and epi-aortic scanning HISTORY OF PRESENT ILLNESS: This is a 74-year-old active gentleman who follows on an outpatient basis with Dr. Wheat as well as Dr. Kelley from [facility]. He had been reporting symptoms of increase in fatigue but no other symptoms. He was recommended to undergo stress testing which was abnormal demonstrating possible anterior wall ischemia. Subsequently he underwent heart catheterization demonstrating calcified left main coronary artery with distal stenosis 60%, ostial LAD stenosis 90-95%, 90% ostial stenosis in a diagonal branch, proximal circumflex stenosis 70-80%, mid right coronary artery stenosis 50-60%, with ostial PLB stenosis 70%. Consultation was placed to Dr. Albrecht from cardiothoracic surgery. He was recommended to undergo coronary artery bypass graft surgery. The usual perioperative course was discussed in detail with the patient and his family, all risks and benefits were explained, all questions were answered. Initially the patient refused surgery despite recommendations even if it meant hastening his . Our contact information was left with the patient in case he changed his mind. 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 He contacted our office at the beginning of April stating he changed his mind and was ready to have surgery. He was seen in the office by Dr. Rain, and again perioperative course was discussed with him and his , and consent was obtained to proceed with surgery. The patient was scheduled at the earliest possible date. HOSPITAL COURSE: The patient was brought to the hospital on 05/09/2019, taken to the preoperative area, prepared in the usual fashion, and subsequently taken to the operating room where Dr. Rain performed 5 vessel coronary bypass. Upon completion of surgery the patient was transferred to the cardiovascular intensive care unit where he was recovered, monitored hemodynamically, and where he progressed to cardiac rehabilitation phase 1. He was extubated, all lines, tubes, and drips were discontinued when appropriate. The patient did have some mild confusion in the first couple days postoperatively, etiology unknown, however he recovered with full alertness and orientation without any intervention. In addition, he did experience acute blood loss anemia requiring transfusion of 1 unit packed red blood cells. Transfer orders were placed for [address] [place] [address] cardiac stepdown unit, however there was no bed availability and the patient remained in the intensive care unit as a stepdown patient until discharge. His oxygen was titrated down, he continued to work with physical and occupational therapy, he was tolerating oral diet, his pain was controlled, and he was ready to be discharged to home with [facility] on postoperative day #5. He received written and verbal instruction regarding his medications, activity restrictions, signs and symptoms requiring physician notification, and follow-up appointments. COMPLICATIONS: The patient experienced postoperative acute blood loss anemia with transfusion of 1 unit packed red blood cells, and postoperative confusion requiring Patient Condition at Discharge: Stable Plan - Discharge Summary Discharge Rx Participant: Yes New Discharge Prescriptions: New Aspirin 81 mg PO DAILY #30 chew Losartan [Cozaar] 100 mg PO 1200 #30 tab Tamsulosin [Flomax] 0.4 mg PO PC-SUPPER #30 cap.er.24h Ferrous Sulfate [Iron (65 MG Elemental)] 325 mg PO BID-W/MEALS #30 tab Atorvastatin [Lipitor] 40 mg PO DAILY #30 tab Metoprolol Tartrate [Lopressor] 25 mg PO BID #60 tab Pantoprazole [Protonix] 40 mg PO AC-BRKFST #[address] tablet.[address] Mckeonnosidecassidy-Docusate Sodium [Senokot-S] 2 each PO HS PRN tab PRN Reason: Constipation Acetaminophen Tab [Tylenol] 1,000 mg PO Q6HR PRN tab PRN Reason: Fever And/ Or Pain Ascorbic Acid [Vitamin C] 500 mg PO BID-W/MEALS #30 tab Continue Apixaban [Eliquis] 5 mg PO BID #60 tab Discontinued Aspirin 81 mg PO Q2D Atorvastatin [Lipitor] 80 mg PO HS Metoprolol Succinate [Toprol XL] 75 mg PO DAILY Nitroglycerin Sl Tabs [Nitrostat] 0.4 mg SUBLINGUAL Q5M PRN #25 tab PRN Reason: Chest Pain Ezetimibe [Zetia] 10 mg PO DAILY Discharge Medication List Acetaminophen Tab [Tylenol] 1,000 mg PO Q6HR PRN tab 05/14/19 [Rx] Apixaban [Eliquis] 5 mg PO BID #60 tab 05/14/19 [Rx] Ascorbic Acid [Vitamin C] 500 mg PO BID-W/MEALS #30 tab 05/14/19 [Rx] Aspirin 81 mg PO DAILY #30 chew 05/14/19 [Rx] Atorvastatin [Lipitor] 40 mg PO DAILY #30 tab 05/14/19 [Rx] Ferrous Sulfate [Iron (65 MG Elemental)] 325 mg PO BID-W/MEALS #30 tab 05/14/19 [Rx] Losartan [Cozaar] 100 mg PO 1200 #30 tab 05/14/19 [Rx] Metoprolol Tartrate [Lopressor] 25 mg PO BID #60 tab 05/14/19 [Rx] Pantoprazole [Protonix] 40 mg PO AC-BRKFST #30 tablet. 05/14/19 [Rx] Sennosides-Docusate Sodium [Senokot-S] 2 each PO HS PRN tab 05/14/19 [Rx] Tamsulosin [Flomax] 0.4 mg PO PC-SUPPER #30 cap.er.24h 05/14/19 [Rx] Follow up Appointment(s)/Referral(s): Ben Bustillos MD [STAFF PHYSICIAN] - 06/05/19 1:45 pm Cole Kelley MD [STAFF PHYSICIAN] - 05/30/19 11:45 am (office will cancel [facility] 10th appointment) [facility], [NON-STAFF] - 1-2 Days Mili Rain MD [STAFF PHYSICIAN] - 06/16/19 10:30 am Robert Wheat MD [Primary Care Provider] - 2 Weeks (office will call with appointment) Lauren Escobar NPC [Nurse Practitioner] - 05/17/19 2:00 pm (Patient may call me and change appointment if this isn't a convenient time, as long as I see him sometime this week ) Ambulatory/Diagnostic Orders: Complete Blood Count w/diff [LAB.AMB] Time Frame: 3 Days, Location: None Selected Comprehensive Metabolic Panel [LAB.AMB] Time Frame: 3 Days, Location: None Selected Patient Instructions/Handouts: Aortic Valve Replacement (DC), CABG (Coronary Artery Bypass Graft) (DC) Activity/Diet/Wound Care/Special Instructions: DISCHARGE INSTRUCTIONS: 1. No driving for 4 weeks, or until physician gives their ok. 2. The patient should sleep in their own bed, no medical bed needed. 3. Stairs are not an issue. If the bedroom is upstairs, it is advised that the patient go up at night and down in the morning for the first week. Go slowly, using handrail and take 1 step at a time. 4. JUAN CARLOS hose are to be worn for 30 days or until physician discontinues. 5. Heart hugger is to be worn 100% of the time until physician discontinues.(except when showering) 6. No lifting, pushing, or pulling more than 10 pounds for 12 weeks. The physician will advise of any restriction changes. 7. The patient is expected to continue the prescribed walking program. 8. Continue pain control per as needed orders. 9. Continue with incentive spirometry and splinting/heart hugger until otherwise directed by the physician. 10. Must shower daily using liquid antibacterial soap and a separate white washcloth for each individual incision. 11. Routine sternal incision care. No powders, lotions, ointments on incisions. 12. Please call surgeon/AQUATIC PHYSIOTHERAPIST for temp greater than 101 F or purulent drainage from incisions. 13. All prescriptions given by surgeon for 30 days. Refills need to be filled through face and fill packer/primary care physician. 14. A Red armband has been placed on the patient. It should be worn for 30 days post surgery and will be removed by the cardiac surgeons. If an ER visit is necessary, please make sure the number on the Red armband is called. HOME HEALTH SERVICES TO PROVIDE: RN SKILLED HOME CARE SERVICES FOR POST-OP SURGICAL PATIENTS WITH THE FOLLOWING: Coronary Artery Bypass Surgery (CABG), Mitral Valve Replacement/Repair ( MVR), Aortic Valve Replacement/Repair (AVR) RN TO CONTINUE EDUCATION FROM ``ROAD TO A HEALTH HEART PATIENT EDUCATION MANUAL (GIVEN TO PATIENT IN THE HOSPITAL) MEDICATION RECONCILIATION WITH EDUCATION NEEDED ON FIRST HOME VISIT EMPHASIZE IMPORTANCE OF WEARING BREAST SUPPORT/HEART HUGGER ENCOURAGE USE OF INCENTIVE SPIROMETER 10 X EVERY HOUR WHILE AWAKE ENCOURAGE UTILIZATION OF LOWER EXTREMITY COMPRESSION STOCKINGS/JUAN CARLOS HOSE and ELEVATE LEGS ABOVE LEVEL OF HEART WHILE AT REST. ENCOURAGE AMBULATION 3-5x/day INCREASING TOLERATES, WHILE AVOID EXTREMES IN TEMPERATURE FREQUENCY: RN TO OPEN THE PATIENT WITHIN 24 HOURS OF DISCHARGE FROM THE HOSPITAL WITH TELEHEALTH [place]STALL[place] [facility] TO VISIT 2-3 X A WEEK FOR 4 WEEKS ESTABLISHED BY PATIENT NEEDS. LABORATORY: CBC, CMP TO BE DRAWN ON THE THIRD DAY HOME, (RAN STAT) FAX RESULTS TO [phone]. TELEHEALTH PARAMETERS: WEIGHT: NOTIFY MD OF WEIGHT GAIN OF 2 LBS IN 24 HOURS OR 5 LBS IN ONE WEEK HR: NOTIFY MD OF HR <55 BPM OR HR>100 BPM BP: NOTIFY MD IF BP <90/55 OR BP>140/100 O2 SAT: NOTIFY MD IF PO2<93% ON ROOM AIR SEND TELEHEALTH REPORT TO IT DATA ARCHITECT AND CARDIOVASCULAR SURGEON THE FIRST WEEK OF CARE AND THEN BI-WEEKLY. PLEASE ADDITIONALLY COMMUNICATE ANY ABNORMALS AND NEW FINDINGS TO THE SURGEONS OFFICE.
--- NOTE | 2019-05-14 12:21 | P.PN ---
Subjective Progress Note Date: 05/14/19 Principal diagnosis: Triple-vessel coronary artery disease POD #1 quadruple coronary artery bypass grafting using the left internal mammary artery to the ramus intermedius coronary artery sequentially then to the left anterior descending coronary artery, a reverse greater saphenous vein graft from the aorta to the obtuse marginal coronary artery, a reverse greater saphenous vein graft from the aorta to the left ventricular branch of the right coronary artery, a reverse greater saphenous vein graft from the previous graft to the posterior descending coronary artery in a Y fashion. Exclusion of the left atrial appendage using a 45 mm atrial clip. Intraoperative graft flow measurements using the [employer] system, endoscopic harvesting of the bilateral greater saphenous vein except below the knee on the right side, intraoperative transesophageal echocardiogram and epi-aortic scanning. Patient was reevaluated today on 05/10/2019, patient is now on room air, extubated last night. Hours after he arrived to the ICU. His postoperative course has been uneventful. Patient is asymptomatic, denies any shortness of breath, he is not requiring any pressors or inotropes. Patient is doing fairly well with incentive spirometry, chest x-ray showed very minimal basilar atele ctasis as expected. Chest tubes were noted. His hemodynamic profile today showed a cardiac index of 2.5, pulmonary artery pressure is 22/10. Patient is again asymptomatic labs were all reviewed. Reevaluated today on 05/11/2019, patient is doing fairly well except for some component of confusion patient seems to be a bit disoriented, and his mental status seems to wax and wane. Patient is in no form of respiratory distress, but again intermittently confused. No cough no wheezing no shortness of breath. Chest x-ray is basically unremarkable except for minimal atelectasis. Hemoglobin today was 6.4 and the patient is receiving a unit of packed RBCs. Patient is hemodynamically stable, not requiring any pressors or inotropes. Reevaluated today on 05/12/2019, patient is doing much better, his mental status is back to normal. Patient is alert oriented 3, he is doing great, denies any specific complaints no cough no wheezing no shortness of breath no chest pain no nausea no vomiting patient is ambulating in hallway with assistance. Hemoglobin improved after transfusion yesterday. 7.4 hemoglobin today. Electrodes are normal renal profile is normal. Chest x-ray showed minimal subsegmental atelectasis. And left-sided chest tube in place. Reevaluated today on 05/13/2019, patient continues to do well, basically asymptomatic. He is postoperative day #4,quintuple coronary artery bypass grafting using the left internal mammary artery to the ramus intermedius artery sequentially then to the left anterior descending artery, reverse saphenous vein graft from the aorta to the obtuse marginal artery, reverse saphenous vein graft from the aorta to the left ventricular branch of the right coronary artery, reverse saphenous vein graft from the previous graft to the posterior descending artery in a Y fashion. Exclusion of the left atrial appendage using a 45 mm AtriClip. Intraoperative graft flow measurements using the [employer] system. Endoscopic harvesting of the bilateral greater saphenous vein except below the knee on the right side. Intraoperative transesophageal echocardiogram and epi- aortic scanning. Presently he is in bed, on room air, doing great. No issues overnight, no hemodynamic problems, and the patient is not requiring any pressors or inotropes. Hemoglobin is holding at 7.3, it was 7.4 yesterday post a unit of packed RBCs. Chest x-ray showed mostly minimal bibasilar atelectasis, and postsurgical changes Reevaluated today on 05/14/2019, patient is doing great, relatively asymptomatic, no cough no wheezing no shortness of breath, and he is being considered for discharge today. Objective - Vital Signs Vital signs: Vital Signs Temp 98.0 F 05/14/19 08:00 Pulse 73 05/14/19 08:47 Resp 17 05/14/19 08:00 BP 139/73 05/14/19 08:00 Pulse Ox 97 05/14/19 04:00 Intake & Output 05/13/19 05/14/19 05/14/19 18:59 06:59 18:59 Intake Total 480 1000 Output Total 300 475 0 Balance 180 525 0 Weight 90.8 kg Intake: Oral 480 1000 Output: Urine 300 475 0 Other: Voiding Method Toilet Toilet Toilet Urinal Urinal Urinal # Voids 1 ABP, PAP, CO, CI - Last Documented Arterial Blood Pressure 135/53 Pulmonary Artery Pressure 23/4 Cardiac Output 5 Cardiac Index 2.5 - Exam Physical Exam: Revealed 74-year-old white male in no distress. Head: Atraumatic, normocephalic. HEENT:[Neck is supple.] [No neck masses.] [No thyromegaly.] [No JVD.] Chest: [Clear throughout, no crackles or rhonchi or wheezes Cardiac Exam: [Normal S1 and S2, no S3 gallop, no murmur.] Abdomen: [Soft, nontender, no megaly, no rebound, no guarding, normal bowel sounds.] Extremities: [No clubbing, no edema, no cyanosis.] Neurological Exam: Alert and oriented 3, no gross focal neurologic deficits. Psychiatric: Normal mood, affect and normal mental status examination Skin: No rashes. - Labs CBC & Chem 7: 05/14/19 05:14 05/14/19 05:14 Labs: Abnormal Lab Results - Last 24 Hours (Table) 05/13/19 05/13/19 05/14/19 Range/Units 16:39 20:39 05:14 RBC 2.32 L (4.30-5.90) m/uL Hgb 7.1 L (13.0-17.5) gm/dL Hct 21.2 L (39.0-53.0) % RDW 17.0 H (11.5-15.5) % Chloride (98-107) mmol/L BUN (9-20) mg/dL Glucose (74-99) mg/dL POC Glucose (mg/dL) 140 H 142 H (75-99) mg/dL Calcium (8.4-10.2) mg/dL 05/14/19 05/14/19 Range/Units 05:14 06:23 RBC (4.30-5.90) m/uL Hgb (13.0-17.5) gm/dL Hct (39.0-53.0) % RDW (11.5-15.5) % Chloride 108 H (98-107) mmol/L BUN 22 H (9-20) mg/dL Glucose 105 H (74-99) mg/dL POC Glucose (mg/dL) 144 H (75-99) mg/dL Calcium 8.2 L (8.4-10.2) mg/dL Assessment and Plan Assessment: impression: 1.Triple-vessel coronary artery disease with left main disease status post quadruple coronary artery bypass grafting surgery postoperative day #5 2 history of chronic atrial fibrillation. 3 history of dyslipidemia. 4 family history of alpha-1 antitrypsin deficiency., However the patient tested negative. 5 significant history of marijuana smoking over the last 27 years. 6 mild left ventricular dysfunction 7 [id number] mitral valve regurgitation 8 family history of premature coronary artery disease. 9 postoperative atelectasis as noted on the chest x-ray, improved and this was expected 10 postoperative anemia secondary to blood loss, expected. Recommendation: Agree with discharge planning as they are cardiothoracic surgery on the case. We'll follow up on outpatient basis. Time with Patient: Less than 30
--- NOTE | 2019-05-14 12:37 | P.PN ---
Subjective Progress Note Date: 05/14/19 74-year-old male one of my office patient with past medical history of CAD, A. fib, hypertension, hyperlipidemia and previous history of CVA who had the history of pacemaker as well developed to have A. fib with RVR was referred to cardiology and end up going for heart catheter for positive stress test came back with significant 3 vessel disease. Patient initially refused to go for surgery and then was referred to cardiothoracic surgeon in [facility] and ended up schedule elective CABG on 05/09/[address] Pearson. Patient was seen pulmonary had PFT and other testing and prepare for surgery. Patient had 5 vessel bypass surgery successfully was on mechanical ventilation had 2 chest tube otherwise stable was transferred to the ICU. 05/10: Patient has been successfully extubated. He is found sitting in recliner and appears to be comfortable. Patient has not required any vasopressors. He is using his incentive spirometry. Chest tubes are in place. He is on insulin drip at 2.5 units per hour. Patient was a bit groggy this morning and primary discontinued [place]. Patient is awake and alert at the time of this evaluation. He has been afebrile, heart rate 60s, blood pressure 159/52 and pulse ox 97% on room air. Hemoglobin 7.3 with white count 15.0 and platelet count 132. Creati nine 0.62. Blood sugars running between 134-163. Patient has been evaluated by physical therapy with recommendations for inpatient rehab. 05/11: Patient is doing very well so far still in ICU sitting in the chair today still have 1 chest tube he has mild arrhythmia mild chest pain and discomfort o therwise doing well he did some physical therapy and hemodynamic is more stable. 05/12: Patient is doing very well is not confused anymore all chest tube are out patient is hemodynamic stable he is not in A. fib today he is ambulating with physical therapy help. I and spit patient discharge between today and early next week 05/13: Repeat chest x-ray has been stable with minimal bibasilar atelectasis. Possible small bilateral effusions. Patient remains in intensive care unit. He has been afebrile, heart rate in the 60s and 70s, blood pressure 130/66, pulse ox 96% on room air. Repeat lab work reveals hemoglobin of 7.3, creatinine 0.71. Blood sugars running between 124 and 184. He is currently on insulin scale. Patient is reaching 2700 on incentive spirometry. lunchroom monitor is vent ricular paced rhythm. Patient states he has been ambulating in the hallway. He did have his first bowel movement last evening. He also states that the wound to his right thigh is opened, dressing in place and stable. Discharge plan is home with [facility] tomorrow. 05/14: Patient states that he was up to the bathroom for shower and he did have additional bleeding from the right thigh in the area at the wound site. Pressure dressing is in place. He has had a bowel movement this morning as well. He denies chest pain or shortness of breath. Patient is anticipating discharge home today Objective - Vital Signs Vital signs: Vital Signs Temp 98.0 F 05/14/19 08:00 Pulse 73 05/14/19 08:47 Resp 17 05/14/19 08:00 BP 139/73 05/14/19 08:00 Pulse Ox 97 05/14/19 04:00 Intake & Output 05/13/19 05/14/19 05/14/19 18:59 06:59 18:59 Intake Total 480 1000 Output Total 300 475 0 Balance 180 525 0 Weight 90.8 kg Intake: Oral 480 1000 Output: Urine 300 475 0 Other: Voiding Method Toilet Toilet Toilet Urinal Urinal Urinal # Voids 1 ABP, PAP, CO, CI - Last Documented Arterial Blood Pressure 135/53 Pulmonary Artery Pressure 23/4 Cardiac Output 5 Cardiac Index 2.5 - Exam CONSTITUTIONAL: Well-developed no acute respiratory distress. Denies fever, denies chills EYES: No icterus sclerae, no conjunctivitis. EARS, NOSE, MOUTH, THROAT, and FACE: No sore throat, lymphadenopathy, carotid b ruits or deformity. RESPIRATORY: Mild shortness of breath with no cough or wheezes. CARDIOVASCULAR: pacemaker, positive stress test and 3 vessel disease. GASTROINTESTINAL: No Abd pain, no Nausea or vomiting, no Diarrhea or constipation, No GI Bleed, no distention or masses. GENITOURINARY: Negative for Hematuria or UTI, no kidney stones. INTEGUMENT/BREAST: Negative for any muscular injury with mild osteoarthritis.. HEMATOLOGIC/LYMPHATIC: Negative for bleed or purpura. MUSCULOSKELTAL: Negative for Myalgia or arthralgia. NEURLOGICAL: No LOC, Sz or syncope, blurred vision dizziness or abnormality.. BEHAVIORAL/PSYCH: Negative. ENDOCRINE: Negative. Physical Exam General Appearance: Alert, cooperative, no distress, appears stated age. Neck HEENT: Supple, no lymphadenopathy, no thyroid enlargement, no carotid bruits. Lungs: Clear to auscultation without crackles or wheezes no rhonchi, no deformity. Chest Wall: Chest wall normal expansion with deep inspiration no tenderness and no deformity was found on exam, no costochondral pain or discomfort. Heart: Regular rate and rhythm, S1, S2 normal, no murmur, rub or gallop. Back: Symmetric Abdomen: Soft, non-tender, bowel sounds active all four quadrants, no masses, no organomegaly. Extremities: Extremities normal, atraumatic, no cyanosis or edema. Pulses: 2+ and symmetric. Skin: Skin color, texture, tugor normal, no rashes or lesions. Neurologic: Alert oriented x3 cranial nerves II through XII intact, no motor deficit, no abnormal balance or gait. - Labs CBC & Chem 7: 05/14/19 05:14 05/14/19 05:14 Labs: Abnormal Lab Results - Last 24 Hours (Table) 05/13/19 05/13/19 05/13/19 Range/Units 11:59 16:39 20:39 RBC (4.30-5.90) m/uL Hgb (13.0-17.5) gm/dL Hct (39.0-53.0) % RDW (11.5-15.5) % Chloride (98-107) mmol/L BUN (9-20) mg/dL Glucose (74-99) mg/dL POC Glucose (mg/dL) 165 H 140 H 142 H (75-99) mg/dL Calcium (8.4-10.2) mg/dL 05/14/19 05/14/19 05/14/19 Range/Units 05:14 05:14 06:23 RBC 2.32 L (4.30-5.90) m/uL Hgb 7.1 L (13.0-17.5) gm/dL Hct 21.2 L (39.0-53.0) % RDW 17.0 H (11.5-15.5) % Chloride 108 H (98-107) mmol/L BUN 22 H (9-20) mg/dL Glucose 105 H (74-99) mg/dL POC Glucose (mg/dL) 144 H (75-99) mg/dL Calcium 8.2 L (8.4-10.2) mg/dL Assessment and Plan Plan: 1. Coronary artery disease status post CAB vessel coronary artery bypass graft, status post extubation. Continue aspirin, Lipitor, Lopressor 25 mg twice daily 2. Advanced CAD: With positive stress test and heart cath, post surgery. 3. Chronic atrial fibrillation, status post permanent pacemaker implantation. Continue eliquis, Lopressor 4. Hyperlipidemia: Has been on atorvastatin 80 mg a day continue medication. 5. Hypertension: On metoprolol and can benefit from small dose of CHRIS inhibitor. 6. GERD/GI prophylaxis: Patient will be on pantoprazole. 7. BPH: Watch for any urinary retention. 8. DVT prophylaxis: Patient is on heparin 5000 units subcutaneous every 8 hours. 9. Prediabetic. Patient is currently on NovoLog scale. Hemoglobin A1c is 6.0. CODE STATUS: Full code. Discharge plan: Home with [facility] today Impression and plan of care have been directed as dictated by the signing physician. Dee Hatfield nurse practitioner acting as scribe for signing physician.
== END 2019-05-14 19:00 | disposition home health service (06) | DRG 236 ==
LOC: 2ORMAIN 05:34 → 2SICU 15:21
PROVIDERS: ADMIT Surgery; ATTEND Surgery
PROC: 06BP4ZZ Excision of Right Saphenous Vein, Percutaneous Endoscopic Approach (ICD-10-PCS; 2019-05-09)
PROC: 5A1221Z Performance of Cardiac Output, Continuous (ICD-10-PCS; 2019-05-09)
PROC: 02L70CK Occlusion of Left Atrial Appendage with Extraluminal Device, Open Approach (ICD-10-PCS; 2019-05-09)
PROC: 4A033BC Measurement of Arterial Pressure, Coronary, Percutaneous Approach (ICD-10-PCS; 2019-05-09)
PROC: B24BZZ4 Ultrasonography of Heart with Aorta, Transesophageal (ICD-10-PCS; 2019-05-09)
PROC: 4B02XSZ Measurement of Cardiac Pacemaker, External Approach (ICD-10-PCS; 2019-05-09)
PROC: 30230N1 Transfusion of Nonautologous Red Blood Cells into Peripheral Vein, Open Approach (ICD-10-PCS; 2019-05-09)
PROC: 021109W Bypass Coronary Artery, Two Arteries from Aorta with Autologous Venous Tissue, Open Approach (ICD-10-PCS; principal; 2019-05-09 08:00)
PROC: 021209W Bypass Coronary Artery, Three Arteries from Aorta with Autologous Venous Tissue, Open Approach (ICD-10-PCS; 2019-05-09 08:00)
PROC: 06BQ4ZZ Excision of Left Saphenous Vein, Percutaneous Endoscopic Approach (ICD-10-PCS; 2019-05-09 08:00)
DX: I25.10 Atherosclerotic heart disease of native coronary artery without angina pectoris (principal); D62 Acute posthemorrhagic anemia; I48.19 Other persistent atrial fibrillation; J98.11 Atelectasis; J44.9 Chronic obstructive pulmonary disease, unspecified; I11.9 Hypertensive heart disease without heart failure; I34.0 Nonrheumatic mitral (valve) insufficiency; E78.5 Hyperlipidemia, unspecified; I10 Essential (primary) hypertension; M19.90 Unspecified osteoarthritis, unspecified site; R45.1 Restlessness and agitation; R41.0 Disorientation, unspecified; I83.90 Asymptomatic varicose veins of unspecified lower extremity; N40.0 Benign prostatic hyperplasia without lower urinary tract symptoms; R73.03 Prediabetes; E66.3 Overweight; Z68.28 Body mass index [BMI] 28.0-28.9, adult; Z79.01 Long term (current) use of anticoagulants; Z79.899 Other long term (current) drug therapy; Z79.82 Long term (current) use of aspirin; Z95.0 Presence of cardiac pacemaker; Z87.442 Personal history of urinary calculi; Z86.73 Personal history of transient ischemic attack (TIA), and cerebral infarction without residual deficits; Z87.891 Personal history of nicotine dependence; Z85.828 Personal history of other malignant neoplasm of skin; Z90.49 Acquired absence of other specified parts of digestive tract; Z80.1 Family history of malignant neoplasm of trachea, bronchus and lung; Z82.49 Family history of ischemic heart disease and other diseases of the circulatory system
CPT/HCPCS: 71045; 71046; 80048; 80053; 82330; 82805; 83735; 85025; 85027; 85520; 85610; 85730; 86850; 86891; 86900; 86901; 86920; 94002; 94640

== ENCOUNTER → 2023-12-27 | Outpatient (CLI) | payer MEDICARE ==
[2023-12-27 17:18] LABS: BUN/Creat Ratio 19.22 Ratio (12.00-20.00); Blood Urea Nitrogen 17.3 mg/dL (9.0-27.0); Glucose 112 mg/dL (70-110)
[2023-12-27 17:19] LABS: Calcium 9.2 mg/dL (8.7-10.3); Carbon Dioxide 26.8 mmol/L (21.6-31.8); Chloride 102 mmol/L (96-109); Magnesium 2.1 mg/dL (1.5-2.4); Potassium 5.6 mmol/L (3.5-5.5); Sodium 137 mmol/L (135-145)
== END | disposition home or self-care (01) ==
LOC: LABWHC1 09:40
PROVIDERS: ATTEND Nurse Practitioner Adult Health
DX: I10 Essential (primary) hypertension (principal)
CPT/HCPCS: 36415; 80048; 83735

== ENCOUNTER → 2024-01-18 | Outpatient (CLI) | payer MEDICARE | END | disposition home or self-care (01) | LOC: LABPRL 08:04 | PROVIDERS: ATTEND Urology | DX: R97.20 Elevated prostate specific antigen [PSA] (principal) | CPT/HCPCS: 84153 ==

== ENCOUNTER → 2024-04-04 | Outpatient (CLI) | payer MEDICARE ==
[2024-04-04 10:39] LABS: ALT 19 U/L (10-49); AST 32 U/L (14-35); Albumin 4.2 g/dL (3.8-4.9); Albumin/Globulin Ratio 1.68 Ratio (1.60-3.17); Alkaline Phosphatase 65 U/L (41-126); BUN/Creat Ratio 14.78 Ratio (12.00-20.00); Blood Urea Nitrogen 13.3 mg/dL (9.0-27.0); Calcium 9.4 mg/dL (8.7-10.3); Carbon Dioxide 27.6 mmol/L (21.6-31.8); Chloride 104 mmol/L (96-109); Globulin 2.5 g/dL (1.6-3.3); Glucose 111 mg/dL (70-110); LDL Cholesterol,Calculated 43.4 mg/dL (0.0-131.0); Magnesium 2.2 mg/dL (1.5-2.4); Sodium 140 mmol/L (135-145); Total Bilirubin 1.1 mg/dL (0.3-1.2); Total Protein 6.7 g/dL (6.2-8.2); VLDL Calculation 10.54 mg/dL (5.00-40.00)
== END | disposition home or self-care (01) ==
LOC: LABWHC1 07:08
PROVIDERS: ATTEND Internal Medicine Clinical Cardiac Electrophysiology
CPT/HCPCS: 36415; 80053; 80061; 83735; 84443

== ENCOUNTER 2024-06-14 10:19 | Day surgery (SDC) | payer MEDICARE ==
[~2024-06-14 10:19] MED LIST changes: -ALBUMIN HUMAN 25% 50 ML IV ONE; -ASPIRIN 325 MG TAB PO ONE; -ATORVASTATIN 10 MG TAB PO ONE; -CALCIUM CHLORIDE 100 MG/ML 10 ML SYRINGE IV ONE; -CHLORHEXIDINE GLUCONATE 15 ML CUP MUCOUS MEM ONE; -CLEVIDIPINE BUTYRATE 25 MG in EMPTY BAG 1 BAG IV ONE; -DEXTROSE 5% IN WATER 1,000 ML with POTASSIUM CHLORIDE 110 MEQ, MAGNESIUM SULFATE 16 MEQ... IV ONE; -DEXTROSE 5% IN WATER 1,000 ML with POTASSIUM CHLORIDE 25 MEQ, SODIUM CHLORIDE 2.5MEQ/ML... IRRIGATION ONE; -HEPARIN SODIUM 1,000 UN/ML (10ML VL) IV ONE; -HEPARIN SODIUM,PORCINE 5,000 UNIT in SODIUM CHLORIDE 0.9% 500 ML 500 ML IV ONE; +HYDROmorphone 0.5 MG/0.5 ML SYRINGE IVP PRN; -INSULIN REGULAR 100 UNIT in SODIUM CHLORIDE 0.9% 100 ML IV ONE; -LACTATED RINGERS 1,000 ML IV ONE; +LIDOCAINE 1% (10MG/ML) FOR IV START INTRADERMA PRN; -MAGNESIUM SULFATE MG 500 MG/ML IV ONE; -MANNITOL 25% 12.5 GM/50 ML VIAL IV ONE; -METOPROLOL TARTRATE 12.5 MG TAB PO ONE; -MIDAZOLAM 2 MG/2 ML VIAL IV PRN; -NITROGLYCERIN-D5W PMX 25 MG/250 ML BTL IV ONE; -NOREPINEPHRINE 4 MG in SODIUM CHLORIDE 0.9% 250 ML IV ONE; -PAPAVERINE 360 MG in SODIUM CHLORIDE 0.9% 90 ML IV ONE; -PHENYLEPHRINE 40 MG in SODIUM CHLORIDE 0.9% 250 ML IV ONE; -PROPOFOL 1,000 MG/100 ML VIAL IV ONE; -PROTAMINE SULFATE 10 MG/ML 25 ML VIAL IV ONE; -PROTAMINE SULFATE 250 MG in EMPTY BAG 1 BAG IV ONE; -SODIUM BICARB 8.4% 50 ML SYR (1 MEQ/ML) IV ONE; -SODIUM CHLORIDE 0.9% 1,000 ML IV ONE; -TRANEXAMIC ACID 2,000 MG in SODIUM CHLORIDE 0.9% 80 ML IV ONE; -ceFAZolin 1,000 MG in SODIUM CHLORIDE 0.9% IRRIGATIO 1,000 ML IRRIGATION ONE; -ceFAZolin 2,000 MG in SODIUM CHLORIDE 0.9% 30 ML IVPB ONE; +fentaNYL (PF) 50 MCG/ML 2 ML AMP IV PRN
[2024-06-14] MEDS: SODIUM CHLORIDE 0.9% 1,000 ML IV ONE (10:40)
[2024-06-14] MEDS: IV FLUID CONTINUATION 500 ML IV ONE (10:40)
[2024-06-14 10:47] VITALS: RESP 16
[2024-06-14] MEDS: DEXAMETHASONE SOD PHOSPHATE 4 MG/ML 1 ML VIAL IV ONE (11:01)
[2024-06-14] MEDS: FAMOTIDINE 20 MG/2 ML VIAL IV PRN (11:02)
[2024-06-14] MEDS: ONDANSETRON 4 MG/2 ML VIAL IVP ONE (11:02)
[2024-06-14] MEDS ORDERED: VASOPRESSIN 20 UNIT/ML 1 ML VIAL ONE (11:05)
[2024-06-14] MEDS ORDERED: PROPOFOL 10 MG/ML 20 ML VIAL IV ONE (11:05)
[2024-06-14] MEDS ORDERED: PHENYLEPHRINE 10 MG/ML VIAL ONE (11:05)
[2024-06-14] MEDS ORDERED: ePHEDrine 50 MG/ML 1 ML VIAL ONE (11:05)
[2024-06-14] MEDS ORDERED: fentaNYL (PF) 50 MCG/ML 2 ML AMP ONE (11:05)
[2024-06-14 11:09] LABS: Basophils # (A) 0.1 k/uL (0-0.2); Basophils % (A) 1 %; Eosinophils # (A) 0.2 k/uL (0-0.7); Eosinophils % (A) 3 %; HCT 43.9 % (39.0-53.0); HGB 14.3 gm/dL (13.0-17.5); Lymphocytes % (A) 25 %; MCH 31.2 pg (25.0-35.0); MCHC 32.7 g/dL (31.0-37.0); MCV 95.5 fL (80.0-100.0); Monocytes # (A) 0.6 k/uL (0-1.0); Monocytes % (A) 7 %; Neutrophils # (A) 4.9 k/uL (1.3-7.7); Neutrophils % (A) 62 %; Platelet Count 216 k/uL (150-450); RDW 12.9 % (11.5-15.5); WBC 7.9 k/uL (3.8-10.6)
[2024-06-14 11:19] LABS: African American GFR (CKD) >90 (>60 ml/min/1.73 sqM); Anion Gap 8 mmol/L; Blood Urea Nitrogen 16 mg/dL (9-20); Calcium 9.5 mg/dL (8.4-10.2); Carbon Dioxide 26 mmol/L (22-30); Chloride 105 mmol/L (98-107); Glucose 108 mg/dL (74-99); Non-African American GFR(CKD) 85 (>60 ml/min/1.73 sqM); Potassium 4.6 mmol/L (3.5-5.1); Sodium 139 mmol/L (137-145)
[2024-06-14] MEDS: LIDOCAINE 1%-EPI 1:100,000 20 ML VIAL SQ ONE ×2 (11:27)
[2024-06-14] MEDS: LACTATED RINGERS 1,000 ML IV ONE (12:00)
--- NOTE | 2024-06-14 12:32 | P.OP ---
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 Patient underwent induction of general anesthesia with oral endotracheal intubation without difficulty. The patient was prepped and draped in usual ase ptic fashion. The lesion was excised as a full thickness excision with wedge excision technique to remove the lesion grossly entirely through and through. This was sent for frozen section. The inferior margin still had some residual microscopic tumor and therefore additional inferior margin was taken for permanent section at the direction of the pathologist. Hemostasis was gained with electrocautery. The wound was then closed in complex closure method required wide undermining and advancement of tissue into the defect. The closure was accomplished with inverted interrupted 4-0 Vicryl suture and the cartilage inverted interrupted 5-0 Vicryl suture and the subcutaneous tissue and running locking and simple interrupted 40 and 5-0 Prolene suture in the cutaneous layer. Bacitracin ointment and sterile dressings were placed. The patient was allowed to emerge from general anesthesia having tolerated procedure well was extubated in the operating suite and transferred to postop recovery area in satisfactory condition.
[2024-06-14 12:52] VITALS: TEMP 97
[2024-06-14 13:29] VITALS: BP 123/71; PULSE 70
== END 2024-06-14 13:45 | disposition home or self-care (01) ==
LOC: OR 10:19
PROVIDERS: ATTEND Otolaryngology
DX: C44.212 Basal cell carcinoma of skin of right ear and external auricular canal (principal); L81.4 Other melanin hyperpigmentation; I10 Essential (primary) hypertension; E78.5 Hyperlipidemia, unspecified; I25.10 Atherosclerotic heart disease of native coronary artery without angina pectoris; I48.91 Unspecified atrial fibrillation; Z90.89 Acquired absence of other organs; Z95.1 Presence of aortocoronary bypass graft; I67.9 Cerebrovascular disease, unspecified; Z79.02 Long term (current) use of antithrombotics/antiplatelets; Z79.899 Other long term (current) drug therapy
CPT/HCPCS: 88305; 80048; 85025; 88331; 69110; J1100; J0690; J2405; J3010; J3490; J2704; J2371

== ENCOUNTER 2024-08-21 23:52 | Emergency (ER) | payer MEDICARE ==
[2024-08-22 00:01] LABS: Glucose,Whole Blood 130 mg/dL (70-110)
--- NOTE | 2024-08-22 00:04 | ED ---
General Adult HPI - General Stated complaint: Fall Time Seen by Provider: 08/21/24 23:58 - History of Present Illness Initial comments: Patient is a 79-year-old male known past medical history though does take Eliquis presenting today for fall down the stairs. Patient was walking down stairs at home and tripped and fell down 6 of them hitting his head on the wall, his head went through the plaster, and then he slid down the remaining 10 stairs. Patient usually is AO x 4 and is currently oriented x 2-3. Sustained an abrasion to the back of his head. - Related Data Home Medications Medication Instructions Recorded Confirmed Aspirin 81 mg PO Q48H 06/09/24 06/14/24 Atorvastatin [Lipitor] 80 mg PO HS 06/09/24 06/14/24 Metoprolol Succinate (ER) [Toprol 25 mg PO HS 06/09/24 06/14/24 Xl] Metoprolol Succinate (ER) [Toprol 100 mg PO DAILY 06/09/24 06/14/24 Xl] Sacubitril/Valsartan [Entresto 24 1 each PO BID 06/09/24 06/14/24 mg-26 mg Tablet] Previous Rx's Medication Instructions Recorded Apixaban [Eliquis] 5 mg PO BID #60 tab 05/14/19 Allergies Allergy/AdvReac Type Severity Reaction Status Date / Time No Known Allergies Allergy Verified 08/22/24 00:07 Review of Systems ROS Statement: Those systems with pertinent positive or pertinent negative responses have been documented in the HPI. Limitations: ROS unobtainable due to patients medical condition Past Medical History Past Medical History: Atrial Fibrillation, Coronary Artery Disease (CAD), Cancer, CVA/TIA, Hyperlipidemia, Hypertension Additional Past Medical History / Comment(s): hx Kidney Stones. Skin CA to chest. CMP. MILD CVA/TIA 2016. right ear lesion x 2 yrs History of Any Multi-Drug Resistant Organisms: None Reported Past Surgical History: Appendectomy, Cholecystectomy, Coronary Bypass/CABG, Heart Catheterization, Orthopedic Surgery, Pacemaker Additional Past Surgical History / Comment(s): Jonathon Knee Arthroscopy. COLONOSCOPY. [employer] Pacemaker April 2018. Heart Cath 01/06- triple vessel disease; CABGx5 May 2019 Past Anesthesia/Blood Transfusion Reactions: Family History of Problems w/ Anesthesia, Motion Sickness Additional Past Anesthesia/Blood Transfusion Reaction / Comment(s): Brother gets combative with anesthesia. Type of Cardiac Device: Permanent Pacemaker Device Placement Date:: 04/2018 Smoking Status: Former smoker - Past Family History Brother(s) Family Medical History: Deep Vein Thrombosis (DVT), Myocardial Infarction (CT) Additional Family Medical History / Comment(s): . Sister(s) Family Medical History: Cancer Father Family Medical History: Myocardial Infarction (CT) Additional Family Medical History / Comment(s): . Mother Family Medical History: Cancer Additional Family Medical History / Comment(s): lung General Exam - General Exam Comments Initial Comments: PE: CONSTITUTIONAL: No apparent distress, well appearing, c-collar in place SKIN: Warm, dry, no jaundice, abrasion to the top of the left shoulder, posterior left shoulder, right elbow, right lateral arroyo, yellow-green bruises on the medial left ankle lateral left arroyo, blue bruise along the right lateral right foot, 2 cm laceration posterior occiput bleeding controlled EYES: Pupils are equally round, extraocular movements intact without nystagmus, clear conjunctiva, non-icteric sclera HENT: Normocephalic, 2 small laceration to the right posterior occiput, bleeding controlled, moist mucus membranes, oropharynx clear without exudates, no hemotympanum in the left ear, unable to visualize the right tympanic membrane, n o septal lacerations or hematomas NECK: , C-collar in place without midline spinal tenderness to palpation PULMONARY: Clear to auscultation without wheezes, rhonchi, or rales, normal excursion, no accessory muscle use and no stridor CARDIOVASCULAR: Irregularly irregular rate and rhythm normal S1 and S2. No appreciated murmurs, rubs or gallops. 2+ radial and dorsalis pedis pulses in the bilateral upper and lower extremities respectively no lower extremity edema GASTROINTESTINAL: Soft, active bowel sounds throughout, non-tender, non- distended, no palpable masses, no rebound or guarding. No hepatosplenomegaly MUSCULOSKELETAL: [Extremities have no gross deformity yellow-green bruise to the medial left ankle, hematoma to the right lateral foot without bony tenderness to palpation or deformity, small hematoma to the right lateral distal lower extremity without gross deformity, no tenderness palpation, patient able to range all 4 extremities through full range of motion without pain or deficit, palpable hematoma to the right glute, pelvis stable NEUROLOGIC:_a/o x 2-3, Patient oriented to self, remembers getting up to the bathroom to throw up and then walking on the stairs and forgot what happened from there, he is oriented to place, unsure of date GCS 14, normal mentation and speech. Moves all extremities x 4 without motor or sensory deficit PSYCHIATRIC:_normal mood and affect, thought process is mildly confused, amnestic Course Vital Signs 08/21/24 23:53 Temperature 97.6 F Pulse Rate 83 Respiratory 18 Rate Blood Pressure 146/100 O2 Sat by Pulse 97 Oximetry - Reevaluation(s) Reevaluation #1: I was contacted by radiology regarding small subarachnoid hemorrhage along the falx. Patient does take Eliquis, 5 mg BID. Discussed with pharmacy. We do not have andexenat alpha but we do have "balfexor"/kcentra. This was ordered for the patient. 08/22/24 00:54 08/22/24 01:02 EKG Findings - EKG Comments: EKG Findings:: Paced rhythm, rate 83 bpm DC interval 190 ms QT QTc 438/478 ms, normal axis, no clear ST depressions or elevations,Compared to prior EKG performed on 05/09/2019, paced rhythm at that time as well Medical Decision Making - Medical Decision Making Was pt. sent in by a medical professional or institution (BLANCHE Swan, SUSPENDER MAKER, urgent care, hospital, or [place] health care facility...) When possible be specific @ -[No] Did you speak to anyone other than the patient for history (EMS, parent, family, police, friend...)? What history was obtained from this source @ -EMS personnel provided history that patient tripped and fell on sick stairs, his head was "through the wall" when they arrived to find him, he is confused from baseline Did you review nursing and triage notes (agree or disagree)? Why? @ -[I reviewed nursing and triage notes] Were old charts reviewed (outside hosp., previous admission, EMS record, old EKG, old radiological studies, urgent care reports/EKG's, [place] health care facility records)? Report findings @ -[Medical records reviewed] Differential Diagnosis (chest pain, altered mental status, abdominal pain women, abdominal pain men, vaginal bleeding, weakness, fever, dyspnea, syncope, headache, dizziness, GI bleed, back pain, seizure, CVA, palpatations, mental health, musculoskeletal)? @Differential diagnosis remains broad however top considerations include concussion, traumatic brain injury, traumatic intracranial hemorrhage, cervical fracture, ligamentous injury, EKG interpreted by me (3pts min.). @ -[As above] X-rays interpreted by me (1pt min.). @Personally reviewed chest x-ray, pelvis x-ray, ankle x-ray and foot x-ray, I se e no evidence of fractures or malalignment, I see no pneumothorax on chest x-ray agrees radiologist interpretation CT interpreted by me (1pt min.). @Personally reviewed CT brain, noted small subarachnoid hemorrhage near falx cerebri, no mass effect or midline shift, no skull fracture, no fracture or malalignment of CT C-spine, no pneumothorax or intra-abdominal hemorrhage on CT chest abdomen pelvis U/S interpreted by me (1pt. min.). @ -[None done] What testing was considered but not performed or refused? (CT, X-rays, U/S, labs)? Why? @ -[None] What meds were considered but not given or refused? Why? @ -[None] Did you discuss the management of the patient with other professionals (professionals i.e. , PA, SUSPENDER MAKER, lab, RT, psych nurse, long term care social worker, [employer] assistant manager, teacher, employee service officer, renal case manager)? Give summary @ -[No] Was smoking cessation discussed for >3mins.? @ -[No] Was critical care preformed (if so, how long)? @ -[No] Were there social determinants of health that impacted care today? How? (Homelessness, low income, unemployed, alcoholism, drug addiction, transportation, low edu. Level, literacy, decrease access to med. care, retirement, rehab)? @ -[No] Was there de-escalation of care discussed even if they declined (Discuss DNR or withdrawal of care, Hospice)? @ -[No] What co-morbidities impacted this encounter? (DM, HTN, Smoking, COPD, CAD, Cancer, CVA, ARF, Chemo, Hep., AIDS, mental health diagnosis, sleep apnea, morbid obesity)? @Atrial fibrillation on Eliquis Was patient admitted / discharged? Hospital course, mention meds given and route, prescriptions, significant lab abnormalities, going to OR and other pertinent info. Transfer to [facility] this is a 71-year-old gentleman presenting status post trip and fall down 6 stairs with resultant head injury. Patient seen and assessed on arrival as a level 2 trauma due to altered mental status, with a fall. On my assessment he is oriented x 2-3 he does remember events up to when he fell. Unsure of date. Small laceration to the posterior occiput, various bruises as noted in exam above, no midline spinal tenderness palpation lungs clear to auscultation bilaterally, airways clear, abdomen soft nontender pelvis is stable. Trauma protocol followed, Dr. Ham was alerted to level 2 trauma. Imaging significant for small subarachnoid hemorrhage along the falx. Negative CT C-spine. CT chest abdomen pelvis significant for gluteal hematoma. Given subarachnoid hemorrhage, will transfer to [facility] After reviewing patient's imaging I updated patient to imaging findings and cleared their C-Spine. There is no midline cervical neck tenderness or step- offs. The patient denies any numbess, tingling, or weakness of the extremities when moving neck through full ROM. The patient is able to range their neck completely without midline cervical pain, numbness, tingling or weakness. Reexamined patient, he does have a palpable firm hematoma to the right glute, ice was applied and an Javier wrap was applied over top of it. Patient is not ANO x 3, able to remember that he takes Eliquis for atrial fibrillation and that he took his last dose this evening. Updated patient and to plan for transfer due to subarachnoid hemorrhage they are agreeable plan of care. Case discussed w/ Dr. Zelaya, [facility], ED, kindly accept patient for transfer. Case was also discussed with trauma surgeon Dr. Foster, kindly accepted patient to transfer as well. Undiagnosed new problem with uncertain prognosis? @ -[No] Drug Therapy requiring intensive monitoring for toxicity (Heparin, Nitro, Insulin, Cardizem)? @ -[No] Were any procedures done? @Laceration repair Diagnosis/symptom? @Fall downstairs, subarachnoid hemorrhage Acute, or Chronic, or Acute on Chronic? @ -Acute Uncomplicated (without systemic symptoms) or Complicated (systemic symptoms)? @ -Complicated Side effects of treatment? @ -[No] Exacerbation, Progression, or Severe Exacerbation? @ -[No] Poses a threat to life or bodily function? How? (Chest pain, USA, CT, pneumonia, PE, COPD, DKA, ARF, appy, cholecystitis, CVA, Diverticulitis, Homicidal, Suicidal, threat to staff... and all critical care pts) @ Yes - Lab Data Result diagrams: 08/21/24 23:56 08/21/24 23:56 Lab Results 08/21/24 08/21/24 08/21/24 Range/Units 23:56 23:56 23:56 WBC 11.4 H (3.8-10.6) k/uL RBC 4.44 (4.30-5.90) m/uL Hgb 13.6 (13.0-17.5) gm/dL Hct 42.8 (39.0-53.0) % MCV 96.3 (80.0-100.0) fL MCH 30.6 (25.0-35.0) pg MCHC 31.8 (31.0-37.0) g/dL RDW 13.6 (11.5-15.5) % Plt Count 249 (150-450) k/uL MPV 7.9 Neutrophils % 56 % Lymphocytes % 33 % Monocytes % 6 % Eosinophils % 2 % Basophils % 1 % Neutrophils # 6.4 (1.3-7.7) k/uL Lymphocytes # 3.8 (1.0-4.8) k/uL Monocytes # 0.7 (0-1.0) k/uL Eosinophils # 0.2 (0-0.7) k/uL Basophils # 0.1 (0-0.2) k/uL PT 12.1 (10.0-12.5) sec INR 1.1 (<1.2) APTT 23.4 (22.0-30.0) sec Sodium 136 L (137-145) mmol/L Potassium 4.2 (3.5-5.1) mmol/L Chloride 104 (98-107) mmol/L Carbon Dioxide 22 (22-30) mmol/L Anion Gap 10 mmol/L BUN 12 (9-20) mg/dL Creatinine 0.69 (0.66-1.25) mg/dL Est GFR (CKD-EPI)AfAm >90 (>60 ml/min/1.73 sqM) Est GFR (CKD-EPI)NonAf >90 (>60 ml/min/1.73 sqM) Glucose 131 H (74-99) mg/dL POC Glucose (mg/dL) (70-110) mg/dL POC Glu Employment Legal Assistant ID Calcium 9.1 (8.4-10.2) mg/dL Total Bilirubin 1.8 H (0.2-1.3) mg/dL AST 34 (17-59) U/L ALT 20 (4-49) U/L Alkaline Phosphatase 78 (38-126) U/L Troponin I (0.000-0.034) ng/mL Total Protein 6.7 (6.3-8.2) g/dL Albumin 3.9 (3.5-5.0) g/dL Serum Alcohol <10 mg/dL 08/21/24 08/21/24 Range/Units 23:56 23:59 WBC (3.8-10.6) k/uL RBC (4.30-5.90) m/uL Hgb (13.0-17.5) gm/dL Hct (39.0-53.0) % MCV (80.0-100.0) fL MCH (25.0-35.0) pg MCHC (31.0-37.0) g/dL RDW (11.5-15.5) % Plt Count (150-450) k/uL MPV Neutrophils % % Lymphocytes % % Monocytes % % Eosinophils % % Basophils % % Neutrophils # (1.3-7.7) k/uL Lymphocytes # (1.0-4.8) k/uL Monocytes # (0-1.0) k/uL Eosinophils # (0-0.7) k/uL Basophils # (0-0.2) k/uL PT (10.0-12.5) sec INR (<1.2) APTT (22.0-30.0) sec Sodium (137-145) mmol/L Potassium (3.5-5.1) mmol/L Chloride (98-107) mmol/L Carbon Dioxide (22-30) mmol/L Anion Gap mmol/L BUN (9-20) mg/dL Creatinine (0.66-1.25) mg/dL Est GFR (CKD-EPI)AfAm (>60 ml/min/1.73 sqM) Est GFR (CKD-EPI)NonAf (>60 ml/min/1.73 sqM) Glucose (74-99) mg/dL POC Glucose (mg/dL) 130 H (70-110) mg/dL POC Glu Employment Legal Assistant MARIUSZ Felipe Urban Calcium (8.4-10.2) mg/dL Total Bilirubin (0.2-1.3) mg/dL AST (17-59) U/L ALT (4-49) U/L Alkaline Phosphatase (38-126) U/L Troponin I <0.012 (0.000-0.034) ng/mL Total Protein (6.3-8.2) g/dL Albumin (3.5-5.0) g/dL Serum Alcohol mg/dL Disposition Clinical Impression: Fall down stairs, Subarachnoid hemorrhage Disposition: OTHER INSTITUTION NOT DEFINED Condition: Stable Referrals: Robert Wheat MD [Primary Care Provider] - 1-2 days
[2024-08-22] MEDS: DIPH,PERTUS(ACELL)TETVAC-LF 0.5 ML VIAL IM ONE (00:28)
[2024-08-22] MEDS: SODIUM CHLORIDE 0.9% 500 ML 500 ML IV STA (00:28)
[2024-08-22] MEDS: ACETAMINOPHEN TAB 325 MG TAB PO STA (00:29)
[2024-08-22 00:34] LABS: Basophils # (A) 0.1 k/uL (0-0.2); Basophils % (A) 1 %; Eosinophils # (A) 0.2 k/uL (0-0.7); Eosinophils % (A) 2 %; HCT 42.8 % (39.0-53.0); HGB 13.6 gm/dL (13.0-17.5); Lymphocytes # (A) 3.8 k/uL (1.0-4.8); Lymphocytes % (A) 33 %; MCH 30.6 pg (25.0-35.0); MCHC 31.8 g/dL (31.0-37.0); MCV 96.3 fL (80.0-100.0); Mean Platelet Volume 7.9; Monocytes # (A) 0.7 k/uL (0-1.0); Monocytes % (A) 6 %; Neutrophils # (A) 6.4 k/uL (1.3-7.7); Neutrophils % (A) 56 %; Platelet Count 249 k/uL (150-450); RBC 4.44 m/uL (4.30-5.90); RDW 13.6 % (11.5-15.5); WBC 11.4 k/uL (3.8-10.6)
--- NOTE | 2024-08-22 00:35 | XR ---
EXAM: XR Chest, 1 View CLINICAL HISTORY: Trauma TECHNIQUE: Frontal view of the chest. COMPARISON: Chest 2 views dated 06/05/2019 FINDINGS: Lungs: Diffuse reticulonodular interstitial changes. No definite focal airspace consolidation. Pleural space: No definite pleural effusion or pneumothorax, accounting for limitations with supine technique. Heart: Cardiomegaly, more prominent from the previous examination, presumed related to portable supine technique. Findings consistent with prior CABG, stable. Mediastinum: No evidence for mediastinal widening. No tracheal deviation. Bones/joints: Intact sternotomy wires. No definite acute osseous traumatic injury. Tubes, lines and devices: Left atrial appendage closure device noted. A left subclavian dual-lead pacer is again noted, stable. IMPRESSION: Diffuse reticulonodular interstitial changes are presumed mild vascular congestion. Please correlate clinically. Otherwise, no radiographic evidence for significant acute traumatic injury involving the chest/thorax.
--- NOTE | 2024-08-22 00:37 | XR ---
EXAM: XR Pelvis, 1 or 2 Views CLINICAL HISTORY: Trauma TECHNIQUE: Frontal view of the pelvis. COMPARISON: No relevant prior studies available. FINDINGS: Bones/joints: Unremarkable. No acute fracture. No dislocation. Soft tissues: Unremarkable. Vasculature: Incidental phleboliths noted in the left hemipelvis. IMPRESSION: No acute osseous traumatic injury identified involving the pelvic bones.
--- NOTE | 2024-08-22 00:38 | XR ---
EXAM: XR Left Ankle, 2 Views CLINICAL HISTORY: Trauma TECHNIQUE: Frontal and lateral views of the left ankle. COMPARISON: No relevant prior studies available. FINDINGS: Bones/joints: Suboptimal evaluation in the frontal projection. No definite acute osseous traumatic injury or abnormal alignment. Incidental plantar calcaneal spur. Soft tissues: No significant overlying acute traumatic soft tissue abnormality. Vasculature: Incidental regional chronic arterial calcification involving the posterior tibial artery. IMPRESSION: No acute findings in the left ankle.
--- NOTE | 2024-08-22 00:41 | XR ---
EXAM: XR Right Foot, 2 Views CLINICAL HISTORY: Trauma TECHNIQUE: Frontal and lateral views of the right foot. COMPARISON: No relevant prior studies available. FINDINGS: Bones/joints: Evaluation of the digits is limited by flexion positioning. No obvious acute osseous abnormality or abnormal alignment. Soft tissues: Unremarkable. No radiopaque foreign body. IMPRESSION: No acute findings noted involving the right foot.
--- NOTE | 2024-08-22 00:45 | CT ---
EXAM: CT Head Without Intravenous Contrast CLINICAL HISTORY: Trauma TECHNIQUE: Axial computed tomography images of the head/brain without intravenous contrast. CTDI is 45.2 mGy and DLP is 1263 mGy-cm. This CT exam was performed using one or more of the following dose reduction techniques: automated exposure control, adjustment of the mA and/or kV according to patient size, and/or use of iterative reconstruction technique. COMPARISON: CT head without contrast dated 05/19/2017 FINDINGS: Brain: Subtle subarachnoid hemorrhage noted involving the paramedian right parietal region adjacent to the falx. There is also questionable subtle subarachnoid hemorrhage involving the right sylvian fissure. Underlying chronic parenchymal involutional changes with prominence of the cerebral sulci and sylvian fissures. There is asymmetric atrophy involving the right insular low and anterior right temporal lobe, stable. No significant white matter disease. Ventricles: No midline shift or effacement of the ventricles. No ventriculomegaly. Bones/joints: Unremarkable. No acute fracture. Soft tissues: No significant overlying acute traumatic soft tissue abnormality. No radiopaque foreign body. Sinuses: Unremarkable as visualized. No acute sinusitis. Mastoid air cells: Unremarkable as visualized. No mastoid effusion. IMPRESSION: Subtle subarachnoid hemorrhage noted involving the paramedian right parietal region adjacent to the falx. There is also questionable subtle subarachnoid hemorrhage involving the right sylvian fissure. No significant mass-effect. Recommend short-term minimal follow-up to enter stability over time. EXAM: CT Cervical Spine Without Intravenous Contrast CLINICAL HISTORY: Trauma TECHNIQUE: Axial computed tomography images of the cervical spine without intravenous contrast. CTDI is 17.8 mGy and DLP is 559 mGy-cm. This CT exam was performed using one or more of the following dose reduction techniques: automated exposure control, adjustment of the mA and/or kV according to patient size, and/or use of iterative reconstruction technique. COMPARISON: No relevant prior studies available. FINDINGS: Vertebrae: The vertebral bodies are intact without acute osseous traumatic injury. No anterolisthesis or retrolisthesis is identified. The facet joints are well aligned without subluxation or dislocation. The pedicles, transverse processes and spinous processes are intact. Multilevel facet hypertrophic changes noted bilaterally. Discs/spinal canal/neural foramina: No acute findings. No osseous spinal canal stenosis. Soft tissues: Unremarkable. Lung apices: The included lung apices demonstrate no evidence for acute traumatic injury. IMPRESSION: No acute osseous traumatic injury or significant abnormal alignment involving the cervical spine. <MYCVCSECTION> Communications: 08/22/24 00:51 Call Doctor Regarding Intracranial Hemorrhage, called Dr. Velez on 08/22 00:51 (-04:00)
[2024-08-22] MEDS: ONDANSETRON 4 MG/2 ML VIAL IVP STA ×2 (00:51→01:31)
--- NOTE | 2024-08-22 00:55 | CT ---
EXAM: CT Chest With Intravenous Contrast CLINICAL HISTORY: Trauma TECHNIQUE: Axial computed tomography images of the chest with intravenous contrast. CTDI is 14.2 mGy and DLP is 1241 mGy-cm. This CT exam was performed using one or more of the following dose reduction techniques: automated exposure control, adjustment of the mA and/or kV according to patient size, and/or use of iterative reconstruction technique. COMPARISON: No relevant prior studies available. FINDINGS: Artifacts: Scatter artifact likely related to patient's arm position. Limitations: There is respiratory artifact, which degrades image quality on multiple image slices. Lungs: No definite pulmonary contusive injury or focal consolidation identified. No mass. Pleural space: Unremarkable. No pneumothorax. No significant effusion. Heart: The cardiac chambers are prominent in size. Chronic coronary artery calcification with evidence of prior CABG. A ELDER graft is noted. No pericardial effusion. Mediastinum: No mediastinal traumatic injury. Bones/joints: The osseous structures of the thorax are intact without acute osseous traumatic injury. Intact sternal hardware. No dislocation. Soft tissues: No significant overlying acute traumatic soft tissue abnormality. Vasculature: The thoracic aorta is normal in caliber without evidence for acute periaortic traumatic injury. No dissection or aneurysm. Prominent atherosclerotic calcification. Lymph nodes: Unremarkable. No enlarged lymph nodes. Tubes, lines and devices: Left subclavian dual-lead pacer noted. IMPRESSION: Accounting for limitations with diffuse respiratory artifact, there is no significant acute traumatic injury identified involving the chest/thorax. EXAM: CT Abdomen and Pelvis With Intravenous Contrast CLINICAL HISTORY: Trauma TECHNIQUE: Axial computed tomography images of the abdomen and pelvis with intravenous contrast. CTDI is 31.7 mGy and DLP is 2299 mGy-cm. This CT exam was performed using one or more of the following dose reduction techniques: automated exposure control, adjustment of the mA and/or kV according to patient size, and/or use of iterative reconstruction technique. COMPARISON: No relevant prior studies available. FINDINGS: Artifacts: Scatter artifact likely related to patient's arm position. Limitations: There is respiratory artifact, which degrades image quality on multiple image slices. Lung bases: For findings regarding the lung bases, please see the CT report of the chest performed concurrently. ABDOMEN: Liver: The liver appears intact, accounting for respiratory artifact without evidence for acute traumatic injury. Gallbladder and bile ducts: Cholecystectomy. No ductal dilation. Pancreas: Unremarkable. No mass. No ductal dilation. Spleen: The spleen appears intact, accounting for limitations, without evidence for acute traumatic injury. Adrenals: Unremarkable. No mass. Kidneys and ureters: The kidneys appear intact without evidence for acute traumatic injury. No hydronephrosis. Incidental left renal cortical cyst. No complex internal features or solid components requiring follow-up. Delayed phase imaging demonstrates normal excreted contrast in the renal collecting systems and ureters without traumatic injury. Stomach and bowel: No evidence for acute traumatic bowel injury. No bowel obstruction. Diverticulosis of the descending colon. No obvious significant asymmetric mucosal thickening. PELVIS: Appendix: No findings to suggest acute appendicitis. Bladder: No evidence for traumatic injury. Delayed phase imaging demonstrates normal excreted contrast in the bladder without evidence for leakage. Reproductive: Unremarkable as visualized. ABDOMEN and PELVIS: Intraperitoneal space: Unremarkable. No free air. No significant fluid collection. Retroperitoneal space: No evidence for retroperitoneal hematoma. Bones/joints: The lumbar spine, pelvic bones and proximal femurs are intact. Soft tissues: Heterogeneous hyper dense area involving the inferior right gluteal region measuring 7 x 5.8 x 5.5 cm. Vasculature: The aorta is normal in caliber without evidence for traumatic injury. Extensive atherosclerotic calcification. No stenosis or occlusion. No abdominal aortic aneurysm. Lymph nodes: Unremarkable. No enlarged lymph nodes. IMPRESSION: Heterogeneous hyper dense area involving the inferior right gluteal region measuring 7 x 5.8 x 5.5 cm. The appearance is most consistent with an intramuscular hematoma. No radiopaque foreign body or subcutaneous emphysema. No other significant acute traumatic injury identified involving the abdomen or pelvis.
[2024-08-22 00:58] LABS: INR 1.1 (<1.2); Partial Thromboplastin Time 23.4 sec (22.0-30.0); Prothrombin Time 12.1 sec (10.0-12.5)
[2024-08-22 00:59] LABS: ALT 20 U/L (4-49); AST 34 U/L (17-59); African American GFR (CKD) >90 (>60 ml/min/1.73 sqM); Albumin 3.9 g/dL (3.5-5.0); Alcohol <10 mg/dL; Alkaline Phosphatase 78 U/L (38-126); Anion Gap 10 mmol/L; Blood Urea Nitrogen 12 mg/dL (9-20); Calcium 9.1 mg/dL (8.4-10.2); Carbon Dioxide 22 mmol/L (22-30); Chloride 104 mmol/L (98-107); Glucose 131 mg/dL (74-99); Non-African American GFR(CKD) >90 (>60 ml/min/1.73 sqM); Potassium 4.2 mmol/L (3.5-5.1); Sodium 136 mmol/L (137-145); Total Bilirubin 1.8 mg/dL (0.2-1.3); Total Protein 6.7 g/dL (6.3-8.2)
[2024-08-22] MEDS: EMPTY BAG 1 BAG with HUMAN PROTHROMBN CMPL-BALFAXAR 2,000 UNIT IV ONE (01:22)
[2024-08-22] MEDS: fentaNYL (PF) 50 MCG/ML 2 ML AMP IVP STA ×2 (01:25→01:27)
[2024-08-22] MEDS: SODIUM CHLORIDE 0.9% 1,000 ML IV ONE (01:27)
[2024-08-22] MEDS: SODIUM CHLORIDE 0.9% 500 ML 500 ML IV ONE (01:31)
[2024-08-22] MEDS: Kcentra / Balfaxar PER PHARMACY 1 EACH MISC MISCELLANE STA (01:33)
[2024-08-22 02:19] VITALS: BP 146/80; PULSE 82; RESP 15; TEMP 97.9
== END 2024-08-22 01:40 | disposition other institution (70) ==
LOC: EC 23:52
DX: S06.6X0A Traumatic subarachnoid hemorrhage without loss of consciousness, initial encounter (principal); I48.91 Unspecified atrial fibrillation; Z87.891 Personal history of nicotine dependence; Z86.73 Personal history of transient ischemic attack (TIA), and cerebral infarction without residual deficits; Z23 Encounter for immunization; W01.198A Fall on same level from slipping, tripping and stumbling with subsequent striking against other object, initial encounter
CPT/HCPCS: 36415; 93005; 86900; 86901; 80053; 83605; 84484; 85025; 85610; 85730; 86850; 72170; 73600; 73620; 71045; 72125; 70450; 71260; 74177; 90715; 99285; 90471; 96374; 96375 ×2; 96361; G0480; J2405; J3010; Q9967; J7165; 80320

== ENCOUNTER → 2024-09-13 | Outpatient (CLI) | payer MEDICARE ==
[2024-09-13 18:08] LABS: Basophils # (A) 0.07 X 10*3/uL (0.00-0.10); Basophils % (A) 0.9 %; Eosinophils # (A) 0.12 X 10*3/uL (0.04-0.35); Eosinophils % (A) 1.6 %; HCT 36.8 % (39.6-50.0); HGB 11.9 g/dL (13.0-17.0); Lymphocytes # (A) 1.25 X 10*3/uL (0.90-5.00); Lymphocytes % (A) 16.4 %; MCH 31.6 pg (27.0-32.0); MCHC 32.3 g/dL (32.0-37.0); MCV 97.9 FL (80.0-97.0); Mean Platelet Volume 8.6 FL (9.5-12.2); Monocytes # (A) 0.83 X 10*3/uL (0.20-1.00); Monocytes % (A) 10.9 %; NRBC Per 100 WBC 0 X 10*3/uL (0.00-0.01); Neutrophils # (A) 5.33 X 10*3/uL (1.80-7.70); Neutrophils % (A) 69.8 %; Platelet Count 319 X 10*3/uL (140-440); RBC 3.76 X 10*6/uL (4.40-5.60); RDW 15.9 % (11.5-14.5); WBC 7.63 X 10*3/uL (4.50-10.00)
[2024-09-13 18:31] LABS: ALT 39 U/L (10-49); AST 50 U/L (14-35); Albumin/Globulin Ratio 1.43 Ratio (1.60-3.17); Alkaline Phosphatase 156 U/L (41-126); BUN/Creat Ratio 15.25 Ratio (12.00-20.00); Blood Urea Nitrogen 12.2 mg/dL (9.0-27.0); Calcium 9.1 mg/dL (8.7-10.3); Carbon Dioxide 23.8 mmol/L (21.6-31.8); Chloride 99 mmol/L (96-109); Globulin 2.8 g/dL (1.6-3.3); Glucose 127 mg/dL (70-110); LDL Cholesterol,Calculated 36.2 mg/dL (0.0-131.0); Magnesium 1.9 mg/dL (1.5-2.4); Potassium 4.6 mmol/L (3.5-5.5); Sodium 134 mmol/L (135-145); Total Bilirubin 1.5 mg/dL (0.3-1.2); Total Protein 6.8 g/dL (6.2-8.2); VLDL Calculation 13.14 mg/dL (5.00-40.00)
== END | disposition home or self-care (01) ==
LOC: LABWHC1 15:24
PROVIDERS: ATTEND Internal Medicine Clinical Cardiac Electrophysiology
DX: I25.10 Atherosclerotic heart disease of native coronary artery without angina pectoris (principal); I25.5 Ischemic cardiomyopathy; E78.5 Hyperlipidemia, unspecified
CPT/HCPCS: 36415; 80053; 80061; 83036; 83735; 84443; 85025

== ENCOUNTER → 2024-09-28 | Outpatient (CLI) | payer MEDICARE ==
--- NOTE | 2024-09-28 09:31 | CT ---
EXAMINATION TYPE: CT brain wo con DATE OF EXAM: 09/28/2024 8:58 AM COMPARISON: None. CLINICAL INDICATION: Male, 79 years old with history of I60.9 NONTRAU HEMORRHAGE, brain bleed TECHNIQUE: CT of the brain is performed utilizing 3 mm thick sections through the posterior fossa and 3 mm thick sections through the remaining calvarium. Study is performed within 24 hours of arrival to the hospital. Contrast used: mL of , (none if empty) CT DLP: 1099.1 mGycm, Automated exposure control for dose reduction was used. FINDINGS: There is a crescentic low density extra-axial area along the right frontal parietal region compatible with an chronic subdural hematoma. There is a component of slight increased density within with a de pth of 0.5 cm adjacent to the frontal parietal region which may be an acute to subacute subdural lisa davion within the chronic subdural hematoma. The Subdural has mild mass effect without effacement of lugo lci on the adjacent brain. No midline shift is evident. The subdural hematoma is larger than comparis on of 08/22/2024. Report was called to the referring physician's nurse [place] by Dr. Gilbert by telephone 0920 hours 09/28/2024. A prior subarachnoid hemorrhage in the midline adjacent to the falx is not evident on the current exa mination. No suspicious subarachnoid in the right sylvian fissure identified at this time. No mass lesion is evident. No acute infarcts are evident. Chronic appearing periventricular white matter hypodensity is present likely on the basis of chronic white matter ischemic changes. Ventricles and sulci are prominent for the patient age. Quadrigeminal plate and ambient cisterns are normal. No ventricular compression is evident. Temporal horns of lateral ventricles are normal. Paranasal sinuses and mastoid air cells within the [id number] are clear. IMPRESSION: 1. Interval development of a right chronic appearing subdural hematoma. This has a component of incre ased density suggesting acute to subacute subdural within the chronic appearing subdural. No signific ant mass effect or midline shift. 2. Prior subarachnoid hemorrhages central vertex adjacent to the falx and within the sylvian fissure is not evident on the current exam. 3. Chronic appearing periventricular white matter ischemic changes with atrophy. [facility], , 09/28/2024 9:29 AM
== END | disposition home or self-care (01) ==
LOC: RADCTMAIN 08:38
PROVIDERS: ATTEND Physician Assistant
DX: S06.5XAA Traumatic subdural hemorrhage with loss of consciousness status unknown, initial encounter (principal); G31.89 Other specified degenerative diseases of nervous system; X58.XXXA Exposure to other specified factors, initial encounter
CPT/HCPCS: 70450

== ENCOUNTER → 2024-10-12 | Outpatient (CLI) | payer MEDICARE ==
--- NOTE | 2024-10-12 15:33 | CT ---
EXAMINATION TYPE: CT brain wo con DATE OF EXAM: 10/12/2024 COMPARISON: 09/28/2024 CLINICAL INDICATION: Male, 79 years old with history of S06.5XAA TRAUMATIC SUBDURAL HEMORRHAGE; [facility], follow up subdural hemorrhage CT DLP: 1105.1 mGycm Automated exposure control for dose reduction was used. FINDINGS: The small subarachnoid hemorrhage along the right frontal inner convexity has nearly completely resol joanna.. There is no evidence of acute subarachnoid hemorrhage. There is prominence of the CSF spaces al melanie the right inner convexity suggesting prior subdural hematoma. The ventricles and basal cisterns and sulci over the convexities are moderately enlarged consistent with moderate generalized atrophy. 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 There is no acute intra or extra-axial hemorrhage. The posterior fossa is grossly normal. The intraorbital contents appear normal and symmetric. The paranasal sinuses are well aerated although there is a mucous retention cyst or polyp in the left maxillary sinus indicating mild chronic sinusitis. IMPRESSION: 1. Continued reduction with near complete resolution of the small right inner convexity subarachnoid hematoma. There is no evidence of acute hemorrhage 2. Moderate generalized atrophy and mild diffuse chronic ischemic white matter demyelination. [facility], , 10/12/2024 3:30 PM
== END | disposition home or self-care (01) ==
LOC: RADCTMAIN 14:36
PROVIDERS: ATTEND Neurological Surgery
DX: S06.5XAA Traumatic subdural hemorrhage with loss of consciousness status unknown, initial encounter (principal); G31.1 Senile degeneration of brain, not elsewhere classified; R90.82 White matter disease, unspecified
CPT/HCPCS: 70450